=== PATIENT | female | born 1970 | race Caucasian/White ===

== ENCOUNTER 2023-03-05 11:42 | Outpatient (AMB) | payer MEDICAID, SELFPAY ==
--- NOTE | 2023-03-05 11:38 | MHC.OFFVIS ---
Intake Vital Signs 03/05/23 11:44 Height 5 ft 8.5 in Weight 183 lb BMI 27.4 Intake Visit Reasons: [employer]/[facility] Referral for AAA 4.0 cm Intake Note: [employer], went to [facility] w/ Abdominal issues and had a CT Abd/pelvis w/ a finding of a 4.0 cm AAA, no abdominal issues currently Accompanied by: Friend Allergies cat dander [CATS] Allergy (Severe, Unverified 03/05/23 11:45) SHORTNESS OF BREATH HPI [employer]/[facility] Referral for AAA 4.0 cm HPI Details Very pleasant 52-year-old female presents for evaluation regarding an abdominal aortic aneurysm. It was actually picked up as an incidental finding when she did present to [facility] on December 29. At that time she had some abdominal tenderness an had findings consistent with terminal ileitis. At that time she was discovered to have a 4 cm abdominal aortic aneurysm all infrarenal. This was the 1st time she heard of this. She was quite concerned about this and was unable to get in with other vascular surgeons and came to us. From a E medical history she has not seen a primary care and several years and actually does not have 1 at the current time. Is in the process of getting 1. She does have a history of hypertension but did not take medications for that and wanted to see her primary care 1st. In addition she did have a history of hypercholesterolemia and did take cholesterol pills for period of time but self stop that. Also of note she smokes about a pack a day and is a nondiabetic. [facility] Social History (Updated 03/05/23 @ 11:46 by JORI Montenegro) Patient Tobacco Use Status: Current everyday Tobacco user Cigarettes Per Day: 15 Review of Systems Const All systems reviewed & are unremarkable except as noted in HPI and below Reports no additional complaints ENT Reports Normal hearing present Card Denies chest pain, Denies chest pain at rest, Denies chest pain with activity and Denies pedal edema Resp Denies cough GI Denies abdominal pain Musc Denies abnormal gait, Denies muscle cramps and Denies radiating pain into limb Skin/Breast Denies skin ulcer and Denies wounds Neuro Reports Normal hearing present and Denies abnormal gait Psych Reports no additional complaints Physical Exam Vital Signs: BMI result Body Mass Index 27.4 Const General: cooperative, healthy appearing and comfortable Orientation/consciousness: oriented to person, oriented to place and oriented to time HEENT Head: Yes normal to inspection Neck Neck: Yes normal visual inspection Carotids: no bruits Chest Chest palpation & inspection: normal inspection of the chest Resp Effort & Inspection: normal respiratory effort and able to speak in complete sentences Auscultation: clear to auscultation bilaterally, no crackles, no rales, no rhonchi and no wheezes Cardio Rate: regular rate Rhythm: regular rhythm Heart sounds: S1 normal heart sound present and S2 normal heart sound present Bruits: no carotid bruits Peripheral pulses: Peripheral pulses 2+ throughout GI Inspection: Yes normal to inspection Skin Wounds: no wounds Hair: normal Neuro General: oriented to person, oriented to place and oriented to time Cranial nerves: Yes CN's II-XII intact bilaterally and Yes Normal hearing present Cognition (Neuro): normal cognition Motor exam (neuro): 5/5 motor strength present throughout Extrem Other: venous exam: No significant superficial varicosities or spider telangiectasias, minimal edema General: No clubbing, No cyanosis and No edema Psych Appearance: grossly normal Mental Status: mental status grossly normal Speech and movement: Normal speech and movement present Results Reviewed Results Reviewed: CT scan dated 12/29/2022 demonstrates a 4 cm infrarenal abdominal aortic aneurysm written report reviewed only. [facility] CT scan. Assessment & Plan Assessment & Plan (1) AAA (abdominal aortic aneurysm) without rupture: Code(s): I71.40 - Abdominal aortic aneurysm, without rupture, unspecified Plan: In short patient has radiologic evidence of a AAA on CT scan of 4 cm. We have discussed the pathophysiology of aortic aneurysms and the risk of ruptures. We have discussed rupture risk based on size. In addition we have discussed conservative measures and risk factor modification for prevention of increase in size of the aneurysm. the patient is scheduled for surveillance follow-up in approximately 6 months. In addition I did urge her to establish care with primary care physician and the importance of compliance with hypertensive in cholesterol medications peer Thank you for allowing us to participate in the care of this patient Orders: Orders US abdominal aortic aneurysm 6 Months I71.40 - Abdominal aortic aneurysm, without rupture, unspecified Coding Level of Care Code New Pt Level 4 (70092) Diagnoses AAA (abdominal aortic aneurysm) without rupture I71.40
[2023-03-05 11:44] VITALS: BMI 27.4
== END 2023-03-05 12:03 | disposition home or self-care (01) ==
PROVIDERS: Visit Provider Surgery Vascular Surgery
DX: I71.43 Infrarenal abdominal aortic aneurysm, without rupture (principal)
CPT/HCPCS: 99204

== ENCOUNTER → 2023-03-05 11:42 | Outpatient (BNVA) | payer OTHER, SELFPAY | PROVIDERS: Visit Provider Surgery Vascular Surgery | DX: I71.40 Abdominal aortic aneurysm, without rupture, unspecified (principal) | CPT/HCPCS: 99202 ==

== ENCOUNTER 2023-09-02 10:07 | Outpatient (REF) | payer OTHER, SELFPAY ==
--- NOTE | ~2023-09-02 | US_ITS ---
EXAMINATION: US RETROPERITONEAL LIMITED (AORTA) CLINICAL INFORMATION: Abdominal aortic aneurysm. COMPARISON: None available. TECHNIQUE: Thomas-scale, color Doppler and spectral Doppler evaluation of the abdominal aorta. FINDINGS: The aorta is normal. The measurements of the aorta in maximum AP and transverse dimensions respectively are as follows: Proximal: 3.1 x 2.8 cm. Mid: 2.5 x 2.5 cm. Infrarenal: 4.7 x 4.0cm Distal: 2.5 x 2.0 cm. PSV: 163 cm/s. The measurements of the common iliac arteries in maximum AP and TRV dimensions are as follows: Right Common Iliac Artery: 2.2 cm. Left Common Iliac Artery: 2.4 cm. US/US abdominal aortic aneurysm IMPRESSION: Infrarenal abdominal aortic aneurysm measuring 4.7 x 4.0 cm.
== END 2023-09-02 10:08 | disposition home or self-care (01) ==
LOC: HO.US 10:07
PROVIDERS: Visit Provider Surgery Vascular Surgery
DX: I71.40 Abdominal aortic aneurysm, without rupture, unspecified (principal)
CPT/HCPCS: 76706

== ENCOUNTER 2023-10-01 15:09 | Outpatient (AMB) | payer OTHER, SELFPAY ==
[2023-10-01 15:13] VITALS: BMI 27.8
--- NOTE | 2023-10-01 15:13 | MHC.OFFVIS ---
Intake Vital Signs 10/01/23 15:13 Height 5 ft 8 in Weight 183 lb BMI 27.8 Intake Visit Reasons: 6 mo follow up AAA s/p AAA US 09/02/2023 Information Interpreted: non-clinical & clinical Accompanied by: Significant Other Allergies cat dander [CATS] Allergy (Severe, Unverified 10/01/23 15:15) SHORTNESS OF BREATH HPI 6 mo follow up AAA s/p AAA US 09/02/2023 HPI Details Very pleasant 53-year-old female presents for follow-up regarding abdominal aortic aneurysm. She has had no significant interval changes. She has of yet to find a primary care. She continues to smoke about a pack per day. She reports that she does not have any diabetes. Overall medical status is unknown as she has not established primary care. [facility] Social History Patient Tobacco Use Status: Current everyday Tobacco user Cigarettes Per Day: 15 Review of Systems Const All systems reviewed & are unremarkable except as noted in HPI and below Reports no additional complaints ENT Reports Normal hearing present Card Denies chest pain, Denies chest pain at rest, Denies chest pain with activity and Denies pedal edema Resp Denies cough GI Denies abdominal pain Musc Denies abnormal gait, Denies muscle cramps and Denies radiating pain into limb Skin/Breast Denies skin ulcer and Denies wounds Neuro Reports Normal hearing present and Denies abnormal gait Psych Reports no additional complaints Physical Exam Vital Signs: BMI result Body Mass Index 27.8 Const General: cooperative, healthy appearing and comfortable Orientation/consciousness: oriented to person, oriented to place and oriented to time HEENT Head: Yes normal to inspection Neck Neck: Yes normal visual inspection Carotids: no bruits Chest Chest palpation & inspection: normal inspection of the chest Resp Effort & Inspection: normal respiratory effort and able to speak in complete sentences Auscultation: clear to auscultation bilaterally, no crackles, no rales, no rhonchi and no wheezes Cardio Rate: regular rate Rhythm: regular rhythm Heart sounds: S1 normal heart sound present and S2 normal heart sound present Bruits: no carotid bruits Peripheral pulses: Peripheral pulses 2+ throughout GI Inspection: Yes normal to inspection Skin Wounds: no wounds Hair: normal Neuro General: oriented to person, oriented to place and oriented to time Cranial nerves: Yes CN's II-XII intact bilaterally and Yes Normal hearing present Cognition (Neuro): normal cognition Motor exam (neuro): 5/5 motor strength present throughout Extrem Other: venous exam: No significant superficial varicosities or spider telangiectasias, minimal edema General: No clubbing, No cyanosis and No edema Psych Appearance: grossly normal Mental Status: mental status grossly normal Speech and movement: Normal speech and movement present Results Reviewed Results Reviewed: Noninvasive testing of aortic ultrasound dated 09/02/2023 demonstrates aorta measuring 4.7 cm. This is an increase when compared to her CT scan which was dated on 12/29/2022 which was at [facility] and reported at 4 cm. Assessment & Plan Assessment & Plan (1) AAA (abdominal aortic aneurysm) without rupture: Code(s): I71.40 - Abdominal aortic aneurysm, without rupture, unspecified Qualifiers: Abdominal aorta location: infrarenal aorta Qualified Code(s): I71.43 - Infrarenal abdominal aortic aneurysm, without rupture Plan: In short patient has radiologic evidence of a AAA on ultrasound which is an increase from her prior CT scan.. We have discussed the pathophysiology of aortic aneurysms and the risk of ruptures. We have discussed rupture risk based on size. In addition we have discussed conservative measures and risk factor modification for prevention of increase in size of the aneurysm. I have taken the liberty of ordering a CT angiogram to better elucidate the true size of the aorta. Thank you for allowing us to participate in the care of this patient Orders: Orders Blood Urea Nitrogen Today I71.43 - Infrarenal abdominal aortic aneurysm, without rupture Creatinine Today I71.43 - Infrarenal abdominal aortic aneurysm, without rupture CT angio abdomen pelvis 1 Week I71.43 - Infrarenal abdominal aortic aneurysm, without rupture Coding Level of Care Code Est Pt Level 4 (35008) Diagnoses Infrarenal abdominal aortic aneurysm (AAA) without rupture I71.43 Abdominal aorta location: infrarenal aorta
== END 2023-10-01 15:34 | disposition home or self-care (01) ==
PROVIDERS: Visit Provider Surgery Vascular Surgery
DX: I71.43 Infrarenal abdominal aortic aneurysm, without rupture (principal)
CPT/HCPCS: 99214

== ENCOUNTER → 2023-10-01 15:09 | Outpatient (BNVA) | payer OTHER, SELFPAY | PROVIDERS: Visit Provider Surgery Vascular Surgery ==

== ENCOUNTER 2023-10-29 11:01 | Outpatient (REF) | payer OTHER, SELFPAY ==
--- NOTE | ~2023-10-29 | CT_ITS ---
STUDY PERFORMED: CTA ABDOMEN AND PELVIS WITHOUT AND WITH CONTRAST HISTORY: Abdominal aortic aneurysm without rupture DESCRIPTION: Routine abdomen and pelvis CTA protocol with contrast was performed. 80 mL of Omnipaque 350 was administered. 3D POSTPROCESSING: Multiple 3-D angiographic images were processed from the initial data set by the [facility] under concurrent physician supervision. DOSE LOWERING TECHNIQUES: This CT examination was performed using dose optimization techniques as appropriate, variously including the following: - Automated exposure control - Adjustment of mA and/or kV according to patient size (this includes techniques or standardized protocols for targeted exams where dose is matched to indication/reason for exam; i.e. extremities or head) - Use of iterative reconstruction technique DLP: 488 mGycm. COMPARISON: Ultrasound from 09/02/2023 FINDINGS: VASCULAR: ABDOMINAL AORTA: There is a fusiform infrarenal abdominal aortic aneurysm which measures 3.9 x 3.5 cm on the axial images. There is a moderate to large amount of mural thrombus within the aneurysm sac. This previously measured 4.7 x 4.1 cm on ultrasound however this may be overestimated due to artifact and shadowing. RIGHT LOWER EXTREMITY: Common iliac, external iliac, internal iliac and visualized femoral arteries are patent and normal in caliber. Scattered calcified and noncalcified plaque seen without significant stenosis. LEFT LOWER EXTREMITY: Common iliac, external and internal iliac arteries are patent and normal in caliber. Scattered calcified and noncalcified plaque seen without significant stenosis. There is noncalcified plaque in the proximal superficial femoral artery causing a focal severe stenosis. CELIOMESENTERIC ARTERIES: Patent. RENAL ARTERIES: Patent. NONVASCULAR: Lung Bases: The visualized lung bases are unremarkable. Liver, Gallbladder and Biliary Tree: The liver is normal in size, shape, and attenuation. No focal hepatic lesion or biliary ductal dilatation is present. The gallbladder is unremarkable with no evidence of radiopaque gallstones, gallbladder wall thickening, or obvious pericholecystic inflammatory changes. Pancreas: Unremarkable. Spleen: Unremarkable. Adrenal Glands: Unremarkable. Kidneys and Ureters: The kidneys are normal in size, shape, and attenuation. No hydronephrosis, hydroureter, or calculi seen. No perinephric stranding. Bladder: Unremarkable. Gastrointestinal Tract: The small bowel are unremarkable. Extensive diverticula seen. The appendix is unremarkable. Abdominal Wall: No significant hernia is appreciated. Lymph Nodes: Normal. Pelvic Viscera: The uterus and adnexa are unremarkable. Osseous Structures: Degenerative changes in the pubic symphysis CT/CT angio abdomen pelvis IMPRESSION: 1. Fusiform infrarenal abdominal aortic aneurysm with a moderate to large amount of mural thrombus. Aneurysm measures maximum diameter 3.9 cm. 2. Focal severe stenosis in the proximal left superficial femoral artery. 3. Diverticulosis
[2023-10-29 12:40] LABS: Blood Urea Nitrogen 7 mg/dL (9-16); Estimated Glomerular Filt Rate > 60
[2023-10-29] MEDS: iohexoL 350 MG/ML 100 ML INFUS..BTL IV (14:02)
== END 2023-10-29 11:02 | disposition home or self-care (01) ==
LOC: HO.CT 11:01
PROVIDERS: Visit Provider Surgery Vascular Surgery
DX: I71.43 Infrarenal abdominal aortic aneurysm, without rupture (principal)
CPT/HCPCS: 36415; 74174; 82565; 84520; Q9967

== ENCOUNTER 2023-11-05 11:41 | Outpatient (AMB) | payer OTHER, SELFPAY ==
--- NOTE | 2023-11-05 11:43 | MHC.OFFVIS ---
Intake Visit Reasons: follow up CTA abd/pelvis 10/29/2023 Intake Note: Patient presents for follow up CTA abd/pelvis on 10/29/23. No complaints. Accompanied by: Self / Same As Patient Allergies cat dander [CATS] Allergy (Severe, Verified 11/05/23 11:45) SHORTNESS OF BREATH HPI HPI follow up CTA abd/pelvis 10/29/2023: Details: Very pleasant 53-year-old female presents for surveillance follow-up regarding abdominal aortic aneurysm. She had a CT scan nearly a year ago and on surveillance ultrasound follow-up there was a dramatic increase. To better elucidate the true size she underwent a CT angiogram. She has had no interval changes. Upon further discussion with her she reports that she has difficulty ambulating more than a block. She attributes that this is mostly due to her feet. She does complain of some left thigh and calf discomfort. She now presents for follow-u with CT angiogram [facility] Social History Patient Tobacco Use Status: Current everyday Tobacco user Cigarettes Per Day: 15 Review of Systems Const All systems reviewed & are unremarkable except as noted in HPI and below Reports no additional complaints ENT Reports Normal hearing present Card Denies chest pain, Denies chest pain at rest, Denies chest pain with activity and Denies pedal edema Resp Denies cough GI Denies abdominal pain Musc Denies abnormal gait, Denies muscle cramps and Denies radiating pain into limb Skin/Breast Denies skin ulcer and Denies wounds Neuro Reports Normal hearing present and Denies abnormal gait Psych Reports no additional complaints Physical Exam Const General: cooperative, healthy appearing and comfortable Orientation/consciousness: oriented to person, oriented to place and oriented to time HEENT Head: Yes normal to inspection Neck Neck: Yes normal visual inspection Carotids: no bruits Chest Chest palpation & inspection: normal inspection of the chest Resp Effort & Inspection: normal respiratory effort and able to speak in complete sentences Auscultation: clear to auscultation bilaterally, no crackles, no rales, no rhonchi and no wheezes Cardio Other: Bilateral DP signal Rate: regular rate Rhythm: regular rhythm Heart sounds: S1 normal heart sound present and S2 normal heart sound present Bruits: no carotid bruits GI Inspection: Yes normal to inspection Skin Wounds: no wounds Hair: normal Neuro General: oriented to person, oriented to place and oriented to time Cranial nerves: Yes CN's II-XII intact bilaterally and Yes Normal hearing present Cognition (Neuro): normal cognition Motor exam (neuro): 5/5 motor strength present throughout Extrem Other: venous exam: No significant superficial varicosities or spider telangiectasias, minimal edema General: No clubbing, No cyanosis and No edema Psych Appearance: grossly normal Mental Status: mental status grossly normal Speech and movement: Normal speech and movement present Results Reviewed Results Reviewed: CT angiogram dated 10/30/2023 demonstrates abdominal aortic aneurysm measuring 3.9 cm. In addition there was a high-grade stenosis in the left SFA. Assessment & Plan Assessment & Plan (1) AAA (abdominal aortic aneurysm) without rupture: Code(s): I71.40 - Abdominal aortic aneurysm, without rupture, unspecified Category: Medical Qualifiers: Abdominal aorta location: infrarenal aorta Qualified Code(s): I71.43 - Infrarenal abdominal aortic aneurysm, without rupture Plan: In short her abdominal aortic aneurysm is stable at 3.9 cm. The ultrasound reading was an over estimation. CT scan will be the true results. She will be scheduled for annual surveillance follow-up regarding this. We did discuss routine risk factor modification. Thank you for allowing us to assist in her care. (2) PAD (peripheral artery disease): Code(s): I73.9 - Peripheral vascular disease, unspecified Category: Medical Plan: CT scan did pickup an element of peripheral vascular disease. I did take the opportunity to review this with her. This may be multifactorial as she does have some podiatric issues as well. I did take the liberty of ordering noninvasive testing and the patient will follow up with us after testing. Thank you for allowing us to assist in her care. If there are any questions or concerns please do not hesitate to contact us Orders: Orders US abdominal aortic aneurysm 1 Year I71.43 - Infrarenal abdominal aortic aneurysm, without rupture US arterial duplex LE BI 1 Week I73.9 - Peripheral vascular disease, unspecified Coding Level of Care Code Est Pt Level 4 (59717) Diagnoses Infrarenal abdominal aortic aneurysm (AAA) without rupture I71.43 Abdominal aorta location: infrarenal aorta PAD (peripheral artery disease) I73.9
== END 2023-11-05 11:58 | disposition home or self-care (01) ==
PROVIDERS: Visit Provider Surgery Vascular Surgery
DX: I71.43 Infrarenal abdominal aortic aneurysm, without rupture (principal); I73.9 Peripheral vascular disease, unspecified
CPT/HCPCS: 99213

== ENCOUNTER → 2023-11-05 11:41 | Outpatient (BNVA) | payer OTHER, SELFPAY | PROVIDERS: Visit Provider Surgery Vascular Surgery ==

== ENCOUNTER 2023-12-03 15:00 | Outpatient (REF) | payer OTHER, SELFPAY ==
--- NOTE | ~2023-12-03 | US_ITS ---
EXAMINATION: NONINVASIVE ASSESSMENT OF THE ARTERIES OF BOTH LOWER EXTREMITIES INCLUDING PVR EXAM AND BILATERAL LOWER EXTREMITY DUPLEX CLINICAL INFORMATION: PVD COMPARISON: None TECHNIQUE: Ankle pulse volume recordings, ankle pressure measurements and ankle brachial indices were obtained of the lower extremity arterial system bilaterally in addition to duplex Doppler techniques with wave form analysis and measurement of velocities in the common femoral, profunda femoral, superficial femoral, popliteal, tibial and peroneal arteries. The study was performed only at rest. FINDINGS: RIGHT LEG 1. Right Ankle-Brachial Index: 0.99 (higher of the DP/PT) >0.97-1.25 = normal - no significant arterial disease 0.75-0.96 = mild peripheral arterial disease 0.5-0.74 = moderate peripheral arterial disease <0.50 = severe peripheral arterial disease <0.30 = critical arterial disease 2. Segmental Pressures (mmHg): Brachial: 195 Ankle: PT 199, DP 179 3. PVR Waveforms: Ankle: normal 4. Direct Duplex: Common femoral artery: 131.8 cm/s, Multiphasic Profunda femoris artery: 57.1 cm/s, Multiphasic Superficial femoral artery (proximal): 107.7 cm/s, Multiphasic Superficial femoral artery (mid): 107.6 cm/s, Multiphasic Superficial femoral artery (distal): 196.6 cm/s, Multiphasic Popliteal artery: 80.3 cm/s, Multiphasic Posterior tibial artery: 74.1 cm/s, Multiphasic LEFT LE. Left Ankle-Brachial Index: 0.68 (higher of the DP/PT) >0.97-1.25 = normal - no significant arterial disease 0.75-0.96 = mild peripheral arterial disease 0.5-0.74 = moderate peripheral arterial disease <0.50 = severe peripheral arterial disease <0.30 = critical arterial disease 2. Segmental Pressures: Brachial: 201 Ankle: PT 136, DP 132 3. PVR Waveforms: Ankle: biphasic 4. Direct Duplex: Common femoral artery: 112.3 cm/s, Multiphasic Profunda femoris artery: 64.9 cm/s, Multiphasic Superficial femoral artery (proximal): 231.8 cm/s, Monophasic Superficial femoral artery (mid): 65.5 cm/s, Multiphasic Superficial femoral artery (distal): 86.4 cm/s, Monophasic Popliteal artery: 39.7 cm/s, Monophasic Posterior tibial artery: 37.5 cm/s, Monophasic US/US arterial duplex LE BI IMPRESSION: 1. Right AMY 0.99. No evidence of hemodynamically significant stenosis. 2. Left AMY 0.68 consistent with moderate peripheral arterial disease. There is elevated peak systolic velocity at the proximal superficial femoral artery suggesting a stenosis at this level. There is monophasic flow in the popliteal and posterior tibial arteries.
== END 2023-12-03 15:01 | disposition home or self-care (01) ==
LOC: HO.US 15:00
PROVIDERS: Visit Provider Surgery Vascular Surgery
DX: I73.9 Peripheral vascular disease, unspecified (principal)
CPT/HCPCS: 93923; 93925

== ENCOUNTER 2024-01-02 10:26 | Outpatient (AMB) | payer OTHER, SELFPAY ==
[2024-01-02 10:35] VITALS: BMI 27.8
--- NOTE | 2024-01-02 10:35 | MHC.OFFVIS ---
Vital Signs 01/02/24 10:35 Height 5 ft 8 in Weight 183 lb BMI 27.8 Intake Visit Reasons: Follow up 12/02 arterial US Intake Note: follow up for arterial US 12/03/23 for LE pain Right worse than Left. States bilateral feet are painful. No numbness or cramping Accompanied by: Self / Same As Patient Allergies cat dander [CATS] Allergy (Severe, Verified 01/02/24 10:39) SHORTNESS OF BREATH HPI HPI Follow up 12/02 arterial US: Details: Very pleasant 53-year-old female presents for follow-up regarding peripheral vascular disease. She had undergone CT scan for her aortic aneurysm and at that time was noted to have left SFA occlusion. She reports that she has no difficulty ambulating and that the majority of her issues are with her feet. She did have a right thigh muscle strain. She now presents for follow-up with noninvasive arterial testing. FORMERLY [facility] Social History Patient Tobacco Use Status: Current everyday Tobacco user Cigarettes Per Day: 15 Review of Systems Const All systems reviewed & are unremarkable except as noted in HPI and below Reports no additional complaints ENT Reports Normal hearing present Card Denies chest pain, Denies chest pain at rest, Denies chest pain with activity and Denies pedal edema Resp Denies cough GI Denies abdominal pain Musc Denies abnormal gait, Denies muscle cramps and Denies radiating pain into limb Skin/Breast Denies skin ulcer and Denies wounds Neuro Reports Normal hearing present and Denies abnormal gait Psych Reports no additional complaints Physical Exam Vital Signs: BMI result Body Mass Index 27.8 Const General: cooperative, healthy appearing and comfortable Orientation/consciousness: oriented to person, oriented to place and oriented to time HEENT Head: Yes normal to inspection Neck Neck: Yes normal visual inspection Carotids: no bruits Chest Chest palpation & inspection: normal inspection of the chest Resp Effort & Inspection: normal respiratory effort and able to speak in complete sentences Auscultation: clear to auscultation bilaterally, no crackles, no rales, no rhonchi and no wheezes Cardio Other: Bilateral DP signal Rate: regular rate Rhythm: regular rhythm Heart sounds: S1 normal heart sound present and S2 normal heart sound present Bruits: no carotid bruits Peripheral pulses: Peripheral pulses 2+ throughout GI Inspection: Yes normal to inspection Skin Wounds: no wounds Hair: normal Neuro General: oriented to person, oriented to place and oriented to time Cranial nerves: Yes CN's II-XII intact bilaterally and Yes Normal hearing present Cognition (Neuro): normal cognition Motor exam (neuro): 5/5 motor strength present throughout Extrem Other: venous exam: No significant superficial varicosities or spider telangiectasias, minimal edema General: No clubbing, No cyanosis and No edema Psych Appearance: grossly normal Mental Status: mental status grossly normal Speech and movement: Normal speech and movement present Results Reviewed Results Reviewed: Noninvasive arterial testing dated 12/03/2023 demonstrates AMY on the right of 0.99 and on the left of 0.68. Aortic CT on 10/30/2023 measures aneurysm measuring 3.9 cm Assessment & Plan Assessment & Plan (1) AAA (abdominal aortic aneurysm) without rupture: Code(s): I71.40 - Abdominal aortic aneurysm, without rupture, unspecified Category: Medical Plan: In short patient has radiologic evidence of a AAA on 3.[address] scan. We have discussed the pathophysiology of aortic aneurysms and the risk of ruptures. We have discussed rupture risk based on size. In addition we have discussed conservative measures and risk factor modification for prevention of increase in size of the aneurysm. the patient is scheduled for surveillance follow-up in approximately 1 year. Thank you for allowing us to participate in the care of this patient (2) PAD (peripheral artery disease): Code(s): I73.9 - Peripheral vascular disease, unspecified Category: Medical Plan: In short patient has stable claudication. She does not appear to be symptomatic from this. I did review the pathophysiology of peripheral vascular disease with the patient. In addition we did discuss routine conservative measures including a healthy diet and the importance of exercise and ambulation. We did discuss risk factor modification. The patient will continue to to follow-up with surveillance follow-up in approximately 1 year. Thank you for allowing us to participate in this patient's care. If there are any questions or concerns please do not hesitate to contact us. In addition I did request that she start a daily baby aspirin. She is scheduled for evaluation by a new primary care next month. I did discuss the importance of good medical management as she does have peripheral vascular issues and may even benefit from a statin. Once again she will follow up with us in approximately 1 year's time. Orders: Orders US arterial duplex LE BI 10 Months I73.9 - Peripheral vascular disease, unspecified Coding Level of Care Code Est Pt Level 4 (44378) Diagnoses AAA (abdominal aortic aneurysm) without rupture I71.40 PAD (peripheral artery disease) I73.9
== END 2024-01-02 11:50 | disposition home or self-care (01) ==
PROVIDERS: Visit Provider Surgery Vascular Surgery
DX: I71.40 Abdominal aortic aneurysm, without rupture, unspecified (principal); I73.9 Peripheral vascular disease, unspecified
CPT/HCPCS: 99213

== ENCOUNTER → 2024-01-02 10:26 | Outpatient (BNVA) | payer OTHER, SELFPAY | PROVIDERS: Visit Provider Surgery Vascular Surgery | DX: I71.40 Abdominal aortic aneurysm, without rupture, unspecified (principal); I73.9 Peripheral vascular disease, unspecified | CPT/HCPCS: 99212 ==

== ENCOUNTER 2024-02-04 12:32 | Outpatient (AMB) | payer OTHER, SELFPAY ==
--- NOTE | 2024-02-04 12:37 | MHC.PC.OV ---
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 Will order labs. Pt has never had a colon screen, will refer to GI. Due for mammo, will order. Pt does not have a library clerical assistant, will refer. Pt has been smoking a pack per day since age 19. Will refer for low-dose CTs. Pt is following up with vascular due to AAA. Pt's blood pressure is elevated today. She reports that it has been elevated in the past as well. Will start losartan-hydrochlorothiazide 50-12.5mg. Will have pt monitor her blood pressure at home and drop off readings. Denies chest pain, shortness of breath, headache, dizziness, and blurred vision. Pt c/o bilat foot pain. She reports pain and neuropathy to the plantar aspect of her feet, mostly to her heels. She reports dermatitis to her feet as well. Will order XRs and send betamethasone. Consider podiatry referral in the near future [facility] Surgical History Hx of left knee surgery Social History Housing: House Patient Tobacco Use Status: Current everyday Tobacco user Cigarettes Per Day: 15 Cognitive needs: No Hearing needs: No Vision needs: Yes Questionnaire PHQ-9 Over the last 2 weeks, how often have you been bothered by any of the following problems? 1. Little interest or pleasure in doing things: not at all 2. Feeling down, depressed, or hopeless: not at all 3. Trouble falling or staying asleep, or sleeping too much: not at all 4. Feeling tired or having little energy: not at all 5. Poor appetite or overeating: not at all 6. Feeling bad about yourself - or that you are a failure or have let yourself or your family down: not at all 7. Trouble concentrating on things, such as reading the newspaper or watching television: not at all 8. Moving or speaking so slowly that other people could have noticed. Or the opposite - being so fidgety or restless that you have been moving around a lot more than usual: not at all 9. Thoughts that you would be better off or of hurting yourself in some way: not at all Total score: 0 Depression Screening Interpretation: Negative Depression Screening Done: Yes 91236 - PHQ-9 Billing: Yes Source: Developed by Drs. Ap Mayo, Linda Mantilla, David Melton and colleagues, with an educational nora from [employer]. Thrive Questionnaire Date Thrive assessed: 02/04/24 I am a: Patient What is your living situation today?: I have a steady place to live Within the past 12 months, did the food you bought not last and you didn't have the money to get more?: Never true Within the past 12 months, did you worry whether your food would run out before you got money to buy more?: Never true Do you have trouble paying for medicines?: No Do you have trouble getting transportation to medical appointments?: No Do you have trouble paying your heating and electricity bill?: No Do you have trouble taking care of your child, family member or friend?: No Do you have trouble with day-to-day activities such as bathing, preparing meals, shopping, managing finances, etc.?: No Are you currently unemployed and looking for a job?: No Are you interested in more education?: No Please select the resources that you would like help with: Housing/Prison Currently or been in a relationship where the following occur: No concerns reported THRIVE Score: 0 AUDIT C Alcohol Use Questionnaire (AUDIT-C) 1. How often do you have a drink containing alcohol?: 2-3 times a week 2. How many drinks containing alcohol do you have on a typical day when you are drinking?: 3 or 4 3. How often do you have six or more drinks on one occasion?: Less than monthly Total Score: 5 Score Reviewed/Action Taken: Yes CASIMIRO-7 AMB Questionnaire CASIMIRO-7 Date CASIMIRO - 7 assessed: 02/04/24 Feeling nervous, anxious, or on edge: 0 = Not at all Not being able to stop or control worryin = Not at all Worrying too much about different things: 0 = Not at all Trouble relaxin = Not at all Being so restless that it is hard to sit still: 0 = Not at all Becoming easily annoyed or irritable: 0 = Not at all Feeling afraid as if something awful might happen: 0 = Not at all Total CASIMIRO-7 score (0-4 normal; 5-9 mild; 10-14 moderate; 15-21 severe): 0 Source: Developed by Drs. Ap Mayo, Linda Mantilla, David Melton and colleagues, with an educational nora from [employer]. CASIMIRO-7 Assessment Billing CASIMIRO-7 Assessment Tool: CASIMIRO-7 Assessment 22476 Review of Systems Const Denies chills and Denies fever(s) Eyes Denies blurry vision ENT Denies vertigo, Denies dizziness and Denies sore throat Card Denies chest pain at rest, Denies chest pain with activity, Denies diaphoresis, Denies dyspnea and Denies dyspnea on exertion Resp Denies cough, Denies dyspnea, Denies dyspnea on exertion and Denies wheezing GI Denies abdominal pain, Denies melena, Denies hematochezia, Denies constipation, Denies diarrhea and Denies loose stools Denies hematuria Musc Denies numbness and Denies tingling Skin/Breast Denies lesions Neuro Denies vertigo, Denies dizziness, Denies numbness and Denies tingling Psych Denies anxiety, Denies depression, Denies homicidal ideation, Denies suicidal ideation and Denies other (substance abuse) Aller/Immun Denies wheezing Physical exam (Primary Care) Vital Signs: Last Vital Signs Pulse 69 02/04/24 12:39 BP 170/110 H 02/04/24 12:39 Pulse Ox 95 02/04/24 12:39 Oxygen Delivery Method Room Air 02/04/24 12:39 BMI result Body Mass Index 27.8 Tobacco/Smoking Status: Tobacco use Status Tobacco use date assessed 02/04/24 02/04/24 12:44 Patient Tobacco Use Status Current everyday Tobacco 02/04/24 12:39 PHQ-9: PHQ-9 Score PHQ-9: Total score 0 02/04/24 12:48 Depression Screening Interpretation: Negative Thrive Assessment: Date of Thrive Assessment Date Thrive assessed 02/04/24 02/04/24 12:44 Currently or been in a relationship where the following occur: No concerns reported Const General: cooperative Nutritional Appearance: well nourished Orientation/consciousness: patient oriented x3 HENMT Head: Yes normal to inspection, Yes normocephalic and Yes atraumatic Ears: TM's normal bilaterally Eyes General: appearance normal, both eyes and all related structures Alignment and Position: alignment normal and position normal Neck Neck: Yes normal visual inspection and Yes no lymphadenopathy Thyroid: Thyroid normal Resp Effort & Inspection: normal respiratory effort Auscultation: clear to auscultation bilaterally Cardio Other: very faint systolic murmur Rate: regular rate Rhythm: regular rhythm Heart sounds: S1 normal heart sound present and S2 normal heart sound present GI Palpation (GI): Soft to palpation and nontender Auscultation: normal bowel sounds Skin Rashes: no rashes Neuro General: patient oriented x3 Romberg Test: Negative Extrem Other: plantar aspect of bilat feet with macular dry flaky dermatitis, no foot pain with palpation, pain noted to plantar aspect of bilat feet with weight bearing Psych Appearance: grossly normal Mental Status: mental status grossly normal Speech and movement: Normal speech and movement present Affect: normal affect Attitude: cooperative Thought process: Normal thought process present Thought content: Normal thought content present Insight: Good insight present (Psych) Judgement: Good judgement present (Psych) Assessment and Plan Assessment & Plan (1) Smoker: Code(s): F17.200 - Nicotine dependence, unspecified, uncomplicated Plan: Referred for low-dose CT (2) Encounter for routine adult physical exam with abnormal findings: Code(s): Z00.01 - Encounter for general adult medical examination with abnormal findings Plan: Labs ordered (3) Screening for colon cancer: Code(s): Z12.11 - Encounter for screening for malignant neoplasm of colon Plan: Referred to GI (4) Screening for cervical cancer: Code(s): Z12.4 - Encounter for screening for malignant neoplasm of cervix Plan: Referred to library clerical assistant (5) Vitamin D deficiency: Code(s): E55.9 - Vitamin D deficiency, unspecified Plan: Labs ordered (6) Foot pain, bilateral: Code(s): M79.671 - Pain in right foot; M79.672 - Pain in left foot Plan: XRs (7) Systolic murmur: Code(s): R01.1 - Cardiac murmur, unspecified Plan: echo (8) Heart palpitations: Code(s): R00.2 - Palpitations Plan: ekg Plan The patient agreed to the use of a medical assistant instructor for this encounter. Scribed for EMMA Chau- by Eli Ballesteros medical assistant instructor, on 02/04/2024 at 12:45 EST. Orders: Orders Complete Blood Count Auto Diff Today F17.200 - Nicotine dependence, unspecified, uncomplicated, Z00.01 - Encounter for general adult medical examination with abnormal findings TSH reflex Free T4 Today F17.200 - Nicotine dependence, unspecified, uncomplicated, Z00.01 - Encounter for general adult medical examination with abnormal findings UA CC w/rflx Micro + Cult Today F17.200 - Nicotine dependence, unspecified, uncomplicated, Z00.01 - Encounter for general adult medical examination with abnormal findings CA echo transthoracic complete Today R01.1 - Cardiac murmur, unspecified Comprehensive Krebs. Panel Fast Today F17.200 - Nicotine dependence, unspecified, uncomplicated, Z00.01 - Encounter for general adult medical examination with abnormal findings Lipid Panel Today F17.200 - Nicotine dependence, unspecified, uncomplicated, Z00.01 - Encounter for general adult medical examination with abnormal findings MM screening mammo BI Today Z12.31 - Encounter for screening mammogram for malignant neoplasm of breast Vitamin D 25-OH Total Today E55.9 - Vitamin D deficiency, unspecified XR foot LT 2V Today M79.671 - Pain in right foot, M79.672 - Pain in left foot XR foot RT 2V Today M79.671 - Pain in right foot, M79.672 - Pain in left foot AMB EKG-In Office Today R00.2 - Palpitations Referrals Lung Cancer Screening Referral F17.200 - Nicotine dependence, unspecified, uncomplicated Gastroenterology Referral Z12.11 - Encounter for screening for malignant neoplasm of colon CAREER BASED INTERVENTION COORDINATOR Referral Z12.4 - Encounter for screening for malignant neoplasm of cervix Medications: New losartan-hydrochlorothiazide 50-12.5 mg 1 tab PO DAILY 90 days 90 tabs 1RF betamethasone valerate 0.1% 1 appl topical BID 14 days PRN 45 grams 3RF skin irritation Coding Level of Care Code New Pt Prev Care 40-64y(27849) Diagnoses Smoker F17.200 Encounter for routine adult physical exam with abnormal findings Z00.01 Screening for colon cancer Z12.11 Screening for cervical cancer Z12.4 Vitamin D deficiency E55.9 Foot pain, bilateral M79.671; M79.672 Systolic murmur R01.1 Heart palpitations R00.2 Additional Codes CASIMIRO-7 Assessment Billing - CASIMIRO-7 Assessment Tool: CASIMIRO-7 Assessment 07054 ([id number])
[2024-02-04 12:39] VITALS: BP 170/110; PULSE 69; O2SAT 95; BMI 27.8
[2024-02-04 13:29] VITALS: BP 150/100
== END 2024-02-04 13:53 | disposition home or self-care (01) ==
PROVIDERS: PCP Nurse Practitioner Family; Visit Provider Nurse Practitioner Family
DX: Z00.01 Encounter for general adult medical examination with abnormal findings (principal); F17.210 Nicotine dependence, cigarettes, uncomplicated; Z12.11 Encounter for screening for malignant neoplasm of colon; E55.9 Vitamin D deficiency, unspecified; M79.671 Pain in right foot; M79.672 Pain in left foot; R01.1 Cardiac murmur, unspecified; R00.2 Palpitations
CPT/HCPCS: 93000; 99203; 99386

== ENCOUNTER 2024-02-04 13:55 | Outpatient (REF) | payer OTHER, SELFPAY ==
--- NOTE | ~2024-02-04 | XR_ITS ---
EXAMINATION: Bilateral foot series CLINICAL INFORMATION: Pain in the right foot COMPARISON: None. TECHNIQUE: 3 views of each foot FINDINGS: Right foot: The bones joints and soft tissues are normal. No fracture. No degenerative joint disease. Left foot: Bones joints and soft tissues are normal. No fracture or degenerative joint disease. XR/XR foot LT min 3V IMPRESSION: RIGHT FOOT: Normal. LEFT FOOT: Normal.
--- NOTE | ~2024-02-04 | XR_ITS ---
EXAMINATION: Bilateral foot series CLINICAL INFORMATION: Pain in the right foot COMPARISON: None. TECHNIQUE: 3 views of each foot FINDINGS: Right foot: The bones joints and soft tissues are normal. No fracture. No degenerative joint disease. Left foot: Bones joints and soft tissues are normal. No fracture or degenerative joint disease. XR/XR foot RT min 3V IMPRESSION: RIGHT FOOT: Normal. LEFT FOOT: Normal.
== END 2024-02-04 13:56 | disposition home or self-care (01) ==
LOC: HO.HMGCX 13:55
PROVIDERS: PCP Nurse Practitioner Family; Visit Provider Nurse Practitioner Family
DX: M79.671 Pain in right foot (principal); M79.672 Pain in left foot
CPT/HCPCS: 73630

== ENCOUNTER 2024-06-03 14:43 | Outpatient (REF) | payer OTHER, SELFPAY ==
[2024-06-03 16:15] LABS: MANUAL DIFF FLAG NO
[2024-06-03 16:22] LABS: Basophils Absolute Auto 0.1 X10*3/uL (0.0-0.2); Basophils Percent Auto 0.8 % (0-2); Eosinophils Absolute Auto 0.4 X10*3/uL (0.0-0.4); Eosinophils Percent Auto 2.5 % (0-4); Hematocrit 46.2 % (37.0-47.0); Imm Gran Abs Auto 0.08 X10*3/uL (0.00-0.03); Imm Gran Pct Auto 0.5 % (0.0-0.4); Lymphocytes Absolute Auto 3.3 X10*3/uL (1.2-4.9); Lymphocytes Percent Auto 21.2 % (20-40); Mean Corpuscular HGB Conc 34.6 g/dl (31.0-35.0); Mean Corpuscular Hemoglobin 38.4 pg (27.0-33.0); Mean Platelet Volume 9.5 fL (9.4-12.3); Monocytes Percent Auto 6.2 % (2-11); Neutrophils Absolute Auto 10.6 x10*3/uL (2.0-8.3); Neutrophils Percent Auto 68.8 % (45-73); Platelet Count 342 X10*3/uL (160-400); Red Blood Count 4.17 X10*6/uL (4.20-5.50); Red Cell Distribution Width 15.6 % (11.0-16.0); White Blood Count 15.4 X10*3/uL (4.8-10.8)
[2024-06-03 16:32] LABS: Mean Corpuscular Volume 110.8 fL (80.0-98.0)
[2024-06-03 16:44] LABS: Alanine Aminotransferase 24 U/L (0-31); Albumin Level 3.9 g/dL (3.5-5.0); Alkaline Phosphatase 65 U/L (39-117); Anion Gap 14 (12-20); Aspartate Amino Transferase 21 U/L (5-31); Blood Urea Nitrogen 8 mg/dL (9-16); Calcium 9.8 mg/dL (8.4-10.2); Carbon Dioxide 33 mmol/L (22-29); Chloride 95 mmol/L (96-108); Cholesterol 243 mg/dL (<200); Estimated Glomerular Filt Rate > 60; Glucose Fasting 108 mg/dL (60-99); HDL Cholesterol 24 mg/dL (>40); LDL Cholesterol Calculated 178 mg/dL (<100); Potassium 3.9 mmol/L (3.3-5.1); Sodium 138 mmol/L (135-145); Total Protein 7.3 g/dL (6.5-8.0); Triglycerides 207 mg/dL (<150)
[2024-06-03 17:01] LABS: TSH reflex Free T4 1.13 uIU/mL (0.32-4.0); Vitamin D 25-OH Total 11.6 ng/mL (>30)
== END 2024-06-03 14:44 | disposition home or self-care (01) ==
LOC: HO.HMGCLDS 14:43
PROVIDERS: PCP Nurse Practitioner Family; Visit Provider Nurse Practitioner Family
DX: I73.9 Peripheral vascular disease, unspecified (principal); G62.9 Polyneuropathy, unspecified; Z00.01 Encounter for general adult medical examination with abnormal findings; F17.200 Nicotine dependence, unspecified, uncomplicated; E55.9 Vitamin D deficiency, unspecified
CPT/HCPCS: 36415; 80053; 80061; 82306; 84443; 85025; 96127; 99212

== ENCOUNTER 2024-06-03 15:03 | Outpatient (AMB) | payer OTHER, SELFPAY ==
[2024-06-03 15:09] VITALS: BP 130/88; PULSE 91; O2SAT 97; BMI 27.8
--- NOTE | 2024-06-03 15:09 | A.OFFPC_ITS ---
Vital Signs 06/03/24 15:09 Height 5 ft 8 in Weight 183 lb BMI 27.8 BP 130/88 Blood Pressure Location Rt brachial Position Sitting Pulse 91 Pulse Source Pulse Oximeter Pulse Oximetry (%) 97 Oxygen Delivery Method Room Air Intake Visit Reasons: 3-4 month follow up Allergies cat dander [CATS] Allergy (Severe, Verified 06/03/24 15:13) SHORTNESS OF BREATH Medication List - Last Reconciled 06/03/24 by EMMA Carr- atorvastatin 20 mg PO BEDTIME 90 days betamethasone valerate 0.1% 1 appl topical BID PRN 14 days gabapentin 100 mg PO TID 30 days losartan-hydrochlorothiazide 50-12.5 mg 1 tab PO DAILY 90 days omeprazole 10 mg PO DAILY Tobacco use date assessed: 06/03/24 Dental Screening Dental Screen Date: 06/03/24 Did you have a dental visit in the last 12 months?: No Did you have a dental problem in the last 6 months where you did not have access to dental care?: No Was dental information given to patient?: Patient has dentist HPI 3-4 month follow up HPI Details History of Present Illness The patient is a 53-year-old female presenting with ongoing lower extremity pain, predominantly affecting her feet. She recently consulted with a vascular specialist who conducted extensive ultrasound testing, including arterial studies. Findings indicated the presence of peripheral arterial disease (PAD), particularly affecting the left lower extremity. The patient reports experiencing neuropathy in both feet and slight claudication on her left lower extremity. The latter is characterized by pain that occurs with ambulatory activity and improves with rest. She has noted that her left foot's toes have become dusky blue in color, indicating compromised circulation, with delayed capillary refill particularly obvious in the first four toes of the left foot. The progression of these symptoms suggests worsening peripheral circulation, contributing to her vascular complaints. Social History Review of Systems - Cardiovascular: Reports claudication i n the left lower extremity. - Neurological: Reports neuropathy in bi lateral feet. Physical Exam - Cardiac- S1, S2 present; faint systoli c murmur appreciated. - Respiratory- Lungs clear and diminishe d. - Extremities- Left foot toes appear dus ky blue, with delayed capillary refill in left first four toes. Difficult to palpate dorsalis pedis pulse on the left; foot is cool to touch. Right foot has positive dorsalis pedis pulse, capillary refill is present, and the area is warm to touch. Positive monofilament test bilaterally though diminished. Results Plan - Peripheral Arterial Disease PAD): Star t low dose aspirin and atorvastatin to manage vascular risk factors. I have ordered a repeat arterial ultrasound for both lower extremities to monitor the progression and response to treatment. - Neuropathy: Initiate gabapentin therap y at a low dose with plans to titrate based on tolerance and symptom relief. - Claudication: Advise the patient on ri sk factor modifications, including smoking cessation and exercise, although specific plans for these were not discussed. - Follow-up: Patient to follow up with shanelle carranza vascular specialist for continuing care and monitoring. Patient was informed and verbally consented to the use of an ambient scribe for clinic note documentation during this visit. Discussion Notes During the visit, I discussed the clinical findings suggestive of peripheral arterial disease primarily affecting the left lower extremity. I explained the nature of neuropathy and the symptoms of claudication, emphasizing the importance of medical management to reduce vascular risks. I advised starting aspirin and atorvastatin for cardiovascular protection, with gabapentin as a therapeutic option for neuropathy. I also informed the patient about further vascular testing (ordered through vascular), specifically an arterial ultrasound to evaluate the status of her peripheral circulation. She will follow up with the vascular specialist to elaborate on these findings and receive ongoing care. Patient Instructions - Start low dose aspirin as prescribed. - Start atorvastatin as discussed. - Begin gabapentin therapy and monitor f or tolerance. - Report any changes in symptoms, especi ally increased pain, color changes in the feet, or new symptoms. - Continue follow-up with vascular speckanu patel for further evaluation and radha clarke [facility] Medical History PAD (peripheral artery disease) AAA (abdominal aortic aneurysm) without rupture Hypertension Hyperlipidemia GERD (gastroesophageal reflux disease) Nicotine dependence, cigarettes, uncomplicated Vitamin D deficiency Surgical History History of repair of anterior cruciate ligament of left knee Social History Housing: House Patient Tobacco Use Status: Current everyday Tobacco user Cigarettes Per Day: 15 Cognitive needs: No Hearing needs: No Vision needs: Yes Questionnaire PHQ-9 Over the last 2 weeks, how often have you been bothered by any of the following problems? 1. Little interest or pleasure in doing things: nearly every day 2. Feeling down, depressed, or hopeless: not at all 3. Trouble falling or staying asleep, or sleeping too much: several days 4. Feeling tired or having little energy: nearly every day 5. Poor appetite or overeating: not at all 6. Feeling bad about yourself - or that you are a failure or have let yourself or your family down: not at all 7. Trouble concentrating on things, such as reading the newspaper or watching television: not at all 8. Moving or speaking so slowly that other people could have noticed. Or the opposite - being so fidgety or restless that you have been moving around a lot more than usual: not at all 9. Thoughts that you would be better off or of hurting yourself in some way: not at all Total score: 7 Depression Screening Interpretation: Negative Depression Screening Done: Yes 19322 - PHQ-9 Billing: Yes Source: Developed by Drs. Ap Mayo, Linda Mantilla, David Melton and colleagues, with an educational nora from [employer]. Thrive Questionnaire Date Thrive assessed: 06/03/24 I am a: Patient What is your living situation today?: I have a steady place to live Within the past 12 months, did the food you bought not last and you didn't have the money to get more?: Never true Within the past 12 months, did you worry whether your food would run out before you got money to buy more?: Never true Do you have trouble paying for medicines?: No Do you have trouble getting transportation to medical appointments?: No Do you have trouble paying your heating and electricity bill?: No Do you have trouble taking care of your child, family member or friend?: No Do you have trouble with day-to-day activities such as bathing, preparing meals, shopping, managing finances, etc.?: No Are you currently unemployed and looking for a job?: No Are you interested in more education?: No Please select the resources that you would like help with: None Currently or been in a relationship where the following occur: No concerns reported THRIVE Score: 0 AUDIT C Alcohol Use Questionnaire (AUDIT-C) 1. How often do you have a drink containing alcohol?: 2-3 times a week 2. How many drinks containing alcohol do you have on a typical day when you are drinking?: 3 or 4 3. How often do you have six or more drinks on one occasion?: Less than monthly Total Score: 5 Score Reviewed/Action Taken: Yes CASIMIRO-7 AMB Questionnaire CASIMIRO-7 Date CASIMIRO - 7 assessed: 06/03/24 Feeling nervous, anxious, or on edge: 0 = Not at all Not being able to stop or control worryin = Not at all Worrying too much about different things: 1 = Several days Trouble relaxin = Several days Being so restless that it is hard to sit still: 0 = Not at all Becoming easily annoyed or irritable: 1 = Several days Feeling afraid as if something awful might happen: 0 = Not at all Total CASIMIRO-7 score (0-4 normal; 5-9 mild; 10-14 moderate; 15-21 severe): 3 Source: Developed by Drs. Ap Mayo, Linda Mantilla, David Melton and colleagues, with an educational nora from [employer]. Physical exam (Primary Care) Vital Signs: Last Vital Signs Pulse 91 06/03/24 15:09 BP 130/88 06/03/24 15:09 Pulse Ox 97 06/03/24 15:09 Oxygen Delivery Method Room Air 06/03/24 15:09 BMI result Body Mass Index 27.8 Tobacco/Smoking Status: Tobacco use Status Tobacco use date assessed 06/03/24 06/03/24 15:17 Patient Tobacco Use Status Current everyday Tobacco 06/03/24 15:17 PHQ-9: PHQ-9 Score PHQ-9: Total score 7 06/03/24 15:17 Depression Screening Interpretation: Negative Thrive Assessment: Date of Thrive Assessment Date Thrive assessed 06/03/24 06/03/24 15:17 Currently or been in a relationship where the following occur: No concerns reported Coding Level of Care Code Est Pt Level 3 (65982) Diagnoses PAD (peripheral artery disease) I73.9 Neuropathy G62.9 Additional Codes PHQ-9 - 89278 - PHQ-9 Billing: Yes ([id number]) Assessment & Plan Assessment & Plan (1) PAD (peripheral artery disease): Code(s): I73.9 - Peripheral vascular disease, unspecified Category: Medical (2) Neuropathy: Code(s): G62.9 - Polyneuropathy, unspecified Category: Medical Plan . Medications: New gabapentin 100 mg PO TID 30 days 90 caps 2RF atorvastatin 20 mg PO BEDTIME 90 days 90 tabs 0RF aspirin (Adult Aspirin Regimen) 81 mg PO DAILY 90 tabs 4RF
== END 2024-06-03 16:11 | disposition home or self-care (01) ==
PROVIDERS: PCP Nurse Practitioner Family; Visit Provider Nurse Practitioner Family
DX: I73.9 Peripheral vascular disease, unspecified (principal); G62.9 Polyneuropathy, unspecified

== ENCOUNTER 2024-06-06 11:50 | Outpatient (REF) | payer OTHER, SELFPAY ==
[2024-06-06 15:15] LABS: Appearance Urine Cloudy; Color Urine Dark Yellow; Glucose Urine UA Negative (Negative); Leukocyte Esterase Urine Small (1+) (Negative); Nitrite Urine Positive (Negative); PH 5.5 (5.0-9.0); UMIC TRIGGER UACC YES; Urine Blood Negative (Negative); Urine Ketones Trace mg/dL (Negative); Urine Protein Negative (Neg-Trace)
[2024-06-06 15:23] LABS: Bacteria Urine 2+ (None Seen); RBC Urine 0-2 /HPF (0-2); UACC Culture Trigger YES; WBC Urine 21-50 /HPF (0-5)
== END 2024-06-06 11:51 | disposition home or self-care (01) ==
LOC: HO.HMGCLNP 11:50
PROVIDERS: Visit Provider Nurse Practitioner Family
DX: Z00.01 Encounter for general adult medical examination with abnormal findings (principal); F17.200 Nicotine dependence, unspecified, uncomplicated
CPT/HCPCS: 81001; 87086

== ENCOUNTER 2024-09-08 13:21 | Outpatient (AMB) | payer OTHER, SELFPAY ==
--- NOTE | 2024-09-08 07:47 | MHC.OFFVIS ---
Intake Visit Reasons: 3 month follow up Allergies cat dander [CATS] Allergy (Severe, Verified 09/08/24 07:49) SHORTNESS OF BREATH Medication List - Last Reconciled 09/08/24 by EMMA Carr- aspirin (Adult Aspirin Regimen) 81 mg PO DAILY atorvastatin 20 mg PO BEDTIME betamethasone valerate 0.1% 1 appl topical BID PRN 14 days cefuroxime axetil 250 mg PO BID 7 days cholecalciferol (vitamin D3) 50 mcg PO DAILY 90 days gabapentin 200 mg (2 x 100 mg) PO TID 30 days losartan-hydrochlorothiazide 50-12.5 mg 1 tab PO DAILY 90 days omeprazole 10 mg PO DAILY HPI HPI 3 month follow up: Details: History of Present Illness The patient is a 54-year-old female presenting with persistent peripheral neuropathy and associated vascular disease. She reports chronic neuropathic symptoms affecting her feet, prompting consideration of an increased dosage of gabapentin. Her medical history includes managed vascular disease with regular consultations and diagnostic monitoring, including planned ultrasounds to assess arterial status in her lower limbs and rule out abdominal aortic aneurysm. Heavy smoking is a significant part of her social history, likely exacerbating her vascular condition. Financial and occupational stress has limited her adherence to preventive health measures such as mammography and lung cancer screening with CT. Despite these challenges, she reports no chest pain, shortness of breath, abdominal discomfort, or stool changes. Her reluctance to complete recommended screenings underscores the need to address these barriers. Review of Systems - Cardiovascular: Denies chest pain. - Respiratory: Denies increased shortness of breath. - Gastrointestinal: Denies abdominal pain. - Gastrointestinal: Denies changes in stool consistency. Plan I will increase the gabapentin dosage to 200 mg three times daily to potentially improve management of her peripheral neuropathy symptoms. Her ongoing heavy tobacco use remains a concern, and I discussed smoking cessation as an essential health measure. For vascular disease, she will proceed with the specialist's plan for repeated ultrasounds. Emphasizing the need to complete delayed health screenings, I addressed her challenges, suggesting consideration of available resources to assist in overcoming these barriers. Discussion Notes In our discussion, I addressed the importance of increasing gabapentin to manage her neuropathy and suggested that smoking cessation would benefit her overall health, particularly in relation to vascular disease. We reviewed the scheduled ultrasounds for her arterial health management. I also highlighted the importance of the postponed mammogram and lung screening, understanding her financial and occupational stress, while suggesting strategies to facilitate access to these essential services. By reinforcing the significance of these follow-ups and potential health risks associated, I aimed to motivate her to pursue comprehensive care. Patient Instructions - Take gabapentin 200 mg three times daily as prescribed. - Consider smoking cessation resources to improve vascular health. - Follow up with the vascular specialist for scheduled ultrasounds. - Attempt to prioritize mammogram and lung cancer screening appointments. - Monitor for any new symptoms or changes in health status and report them promptly. [facility] Medical History (Updated 06/08/24 @ 08:05 by Ramesh Vazquez, [facility]) History of ETOH abuse PAD (peripheral artery disease) AAA (abdominal aortic aneurysm) without rupture Hypertension Hyperlipidemia GERD (gastroesophageal reflux disease) Nicotine dependence, cigarettes, uncomplicated Vitamin D deficiency Surgical History History of repair of anterior cruciate ligament of left knee Social History Housing: House Patient Tobacco Use Status: Current everyday Tobacco user Cigarettes Per Day: 15 Cognitive needs: No Hearing needs: No Vision needs: Yes Telehealth Telehealth Telehealth Platform: [employer] Location of provider rendering services: practice address Location of patient: address on file Patient Identification confirmed using: Name, : Yes Telehealth method: video Patient verbally consented to treatment: Yes Patient verbally consented to billing insurance company: Yes Patient informed of any privacy concerns related to visit: Yes Minutes spent on Phone/Video with Pt.: 12 Assessment & Plan Assessment & Plan (1) Neuropathy: Code(s): G62.9 - Polyneuropathy, unspecified Category: Medical (2) PAD (peripheral artery disease): Code(s): I73.9 - Peripheral vascular disease, unspecified Category: Medical (3) AAA (abdominal aortic aneurysm) without rupture: Comment: (Fusiform infrarenal AAA - measures 3.9 cm on 10/29/23 scan) Code(s): I71.40 - Abdominal aortic aneurysm, without rupture, unspecified Category: Medical Qualifiers: Abdominal aorta location: infrarenal aorta Qualified Code(s): I71.43 - Infrarenal abdominal aortic aneurysm, without rupture Plan . Medications: Changed From gabapentin 100 mg PO TID 30 days 90 caps 2RF To gabapentin 200 mg (2 x 100 mg) PO TID 180 caps 2RF 30 days Refilled betamethasone valerate 0.1% 1 appl topical BID PRN 45 grams 3RF skin irritation 14 days Coding Level of Care Code Tele Est Pt Level 3 (81431) Diagnoses Neuropathy G62.9 PAD (peripheral artery disease) I73.9 Infrarenal abdominal aortic aneurysm (AAA) without rupture I71.43 Abdominal aorta location: infrarenal aorta
== END 2024-09-08 14:25 | disposition home or self-care (01) ==
LOC: HO.HMCC 13:21
PROVIDERS: PCP Nurse Practitioner Family; Visit Provider Nurse Practitioner Family
DX: G62.9 Polyneuropathy, unspecified (principal); I73.9 Peripheral vascular disease, unspecified; I71.43 Infrarenal abdominal aortic aneurysm, without rupture

== ENCOUNTER → 2024-09-08 13:21 | Outpatient (BNVA) | payer OTHER, SELFPAY | PROVIDERS: PCP Nurse Practitioner Family; Visit Provider Nurse Practitioner Family | DX: G62.9 Polyneuropathy, unspecified (principal); I73.9 Peripheral vascular disease, unspecified; I71.43 Infrarenal abdominal aortic aneurysm, without rupture ==

== ENCOUNTER 2024-11-02 09:39 | Outpatient (REF) | payer OTHER, SELFPAY ==
--- NOTE | ~2024-11-02 | US_ITS ---
EXAMINATION: Noninvasive assessment of the bilateral lower extremities with ARTERIAL DUPLEX, ANKLE BRACHIAL INDICES (ABIs), and PULSE VOLUME RECORDINGS (PVRs). CLINICAL INFORMATION: Infrarenal abdominal aortic aneurysm. Peripheral atherosclerosis disease. TECHNIQUE: Duplex Doppler techniques with waveform analysis and measurement of velocities in the bilateral common femoral, profunda femoris, superficial femoral, popliteal and tibial arteries were performed. Additionally, ankle pulse volume recordings, ankle pressure measurements and ankle brachial indices were obtained of the lower extremity arterial system bilaterally. The study was performed only at rest. COMPARISON: December 03, 2023. FINDINGS: DIRECT DUPLEX DOPPLER FINDINGS: RIGHT LEG: Common femoral artery: 85 cm/s, phasicity: Triphasic. Spectral broadening. Profunda femoris artery: 68 cm/s, phasicity: Triphasic. Spectral broadening. Superficial femoral artery (proximal): 96 cm/s, phasicity: Monophasic. Superficial femoral artery (mid): 57 cm/s, phasicity: Face. Superficial femoral artery (distal): 33 cm/s, phasicity: Monophasic. Popliteal artery: 54 cm/s, phasicity: Monophasic. Posterior tibial artery: 34 cm/s, phasicity: Monophasic. Peroneal artery: 12 cm/s, phasicity: Monophasic. Anterior tibial artery: 34 cm/s, phasicity: Monophasic. Dorsalis pedis artery: 9 cm/s, phasicity:Monophasic. LEFT LEG: Common femoral artery: 72 cm/s, phasicity: Monophasic. Profunda femoris artery: 136 cm/s, phasicity: Monophasic. Superficial femoral artery (proximal): No flow on color Doppler interrogation. Superficial femoral artery (mid): 155 cm/s, phasicity: Monophasic. Superficial femoral artery (distal): 33 cm/s, phasicity: Monophasic. Popliteal artery: 35 cm/s, phasicity: Monophasic. Posterior tibial artery: 23 cm/s, phasicity: Monophasic. Peroneal artery: 17 cm/s, phasicity: Monophasic. Anterior tibial artery: 25 cm/s, phasicity: Triphasic. Dorsalis pedis artery: 14 cm/s, phasicity: Monophasic. BRACHIAL PRESSURES: Right: 187 Left: 187 ANKLE PRESSURES: Right: PT 134, DP 134 Left: PT 122, DP 122 ANKLE-BRACHIAL INDEX: Right: 0.72 Left: 0.65 ANKLE PVR WAVEFORMS: Right: Abnormal Left: Abnormal US/US arterial duplex BI w/ AMY IMPRESSION: Right leg: Severe inflow disease throughout the interrogated vessels. Left leg: Severe inflow disease throughout the interrogated vessels. Occluded proximal superficial femoral artery with collateral flow. AMY Reference: - >1.4 = calcified vessels - 0.9 - 1.4 = normal - no significant arterial disease - 0.7 - 0.89 = mild peripheral arterial disease - 0.51 - 0.69 = moderate peripheral arterial disease - d 0.50 = severe peripheral arterial disease - < .30 = critical arterial disease Electronically signed by: Sotero Rodriguez MD 11/04/2024 12:32 PM EDT
--- NOTE | ~2024-11-02 | US_ITS ---
EXAMINATION: US RETROPERITONEAL LIMITED (AORTA) CLINICAL INFORMATION: 4.7 x 4.0 cm infrarenal abdominal aortic aneurysm. COMPARISON: September 02, 2023. TECHNIQUE: Thomas-scale, color Doppler and spectral Doppler evaluation of the abdominal aorta. FINDINGS: The abdominal aorta demonstrates no internal echoes within its lumen. There is normal patency throughout the interrogated segments. There is a crescent-shaped isoechoic abnormality in the anterior right lateral wall of the distal segment. The measurements of the aorta in maximum AP and transverse dimensions respectively are as follows: Proximal: 3.2 x 3.1 cm. Mid: 2.5 x 2.8 cm. Distal: 4.7 x 3.9 cm. The intra-abdominal segment measures 1.8 x 2.5 cm. The measurements of the common iliac arteries in maximum dimensions are as follows: Right: AP: 1.3 cm. TRV: 1.5 cm. Left: AP: 1.5 cm. TRV: 1.4 cm. US/US abdominal aortic aneurysm IMPRESSION: 4.7 x 3.9 cm aneurysm, infrarenal/distal segment, abdominal aorta. Overall stable.. Electronically signed by: Sotero Rodriguez MD 11/04/2024 12:15 PM EDT
== END 2024-11-02 09:40 | disposition home or self-care (01) ==
LOC: HO.US 09:39
PROVIDERS: PCP Nurse Practitioner Family; Visit Provider Surgery Vascular Surgery
DX: I71.43 Infrarenal abdominal aortic aneurysm, without rupture (principal); I73.9 Peripheral vascular disease, unspecified
CPT/HCPCS: 76706; 93922; 93925

== ENCOUNTER → 2024-11-02 09:55 | Outpatient (BNV) | payer OTHER, SELFPAY | PROVIDERS: PCP Nurse Practitioner Family; Visit Provider Radiology Diagnostic Radiology | DX: I71.40 Abdominal aortic aneurysm, without rupture, unspecified (principal); I74.3 Embolism and thrombosis of arteries of the lower extremities | CPT/HCPCS: 76706; 93922; 93925 ==

== ENCOUNTER 2024-11-26 10:48 | Outpatient (AMB) | payer OTHER, SELFPAY ==
--- NOTE | 2024-11-26 11:05 | MHC.OFFVIS ---
Intake Visit Reasons: 1y follow up s/p AAA/Arterial US 11/02/24 Intake Note: Patient presents for follow up arterial/us 11/02/24. Patient states her feet are painful, burning and feel like they are turning to stone . Accompanied by: Friends Allergies cat dander [CATS] Allergy (Severe, Verified 11/26/24 11:09) SHORTNESS OF BREATH HPI HPI 1y follow up s/p AAA/Arterial US 11/02/24: Details: The patient is a 54-year-old female presenting with bilateral lower extremity claudication and chronic pain indicative of peripheral arterial disease. She experiences persistent soreness and a sensation as if her feet are turning to stone. These symptoms are aggravated by ambulation, with increased difficulty noted over time. She reports being able to walk necessary distances despite significant pain. Notable is her report of calf cramping linked to tight musculature from an equinus foot deformity diagnosed by a hr business partner. She denies diabetes or back pain but confirms smoking about a pack daily. She now presents for aortic surveillance and lower extremity arterial surveillance follow-up. Of note patient is being maintained on aspirin and statin [facility] Medical History (Updated 06/08/24 @ 08:05 by Ramesh Vazquez, [facility]) History of ETOH abuse PAD (peripheral artery disease) AAA (abdominal aortic aneurysm) without rupture Hypertension Hyperlipidemia GERD (gastroesophageal reflux disease) Nicotine dependence, cigarettes, uncomplicated Vitamin D deficiency Surgical History History of repair of anterior cruciate ligament of left knee Social History Housing: House Patient Tobacco Use Status: Current everyday Tobacco user Cigarettes Per Day: 15 Cognitive needs: No Hearing needs: No Vision needs: Yes Review of Systems Const All systems reviewed & are unremarkable except as noted in HPI and below Reports no additional complaints ENT Reports Normal hearing present Card Denies chest pain, Denies chest pain at rest, Denies chest pain with activity and Denies pedal edema Resp Denies cough GI Denies abdominal pain Musc Denies abnormal gait, Denies muscle cramps and Denies radiating pain into limb Skin/Breast Denies skin ulcer and Denies wounds Neuro Reports Normal hearing present and Denies abnormal gait Psych Reports no additional complaints Physical Exam Const General: cooperative, healthy appearing and comfortable Orientation/consciousness: oriented to person, oriented to place and oriented to time HEENT Head: Yes normal to inspection Neck Neck: Yes normal visual inspection Carotids: no bruits Chest Chest palpation & inspection: normal inspection of the chest Resp Effort & Inspection: normal respiratory effort and able to speak in complete sentences Auscultation: clear to auscultation bilaterally, no crackles, no rales, no rhonchi and no wheezes Cardio Other: Bilateral DP signals Rate: regular rate Rhythm: regular rhythm Heart sounds: S1 normal heart sound present and S2 normal heart sound present Bruits: no carotid bruits Peripheral pulses: Peripheral pulses 2+ throughout GI Inspection: Yes normal to inspection Skin Wounds: no wounds Hair: normal Neuro General: oriented to person, oriented to place and oriented to time Cranial nerves: Yes CN's II-XII intact bilaterally and Yes Normal hearing present Cognition (Neuro): normal cognition Motor exam (neuro): 5/5 motor strength present throughout Extrem Other: venous exam: No significant superficial varicosities or spider telangiectasias, minimal edema General: No clubbing, No cyanosis and No edema Psych Appearance: grossly normal Mental Status: mental status grossly normal Speech and movement: Normal speech and movement present Results Reviewed Results Reviewed: Noninvasive arterial testing dated 11/02/2024 demonstrates AMY on the right of 0.72 and on the left of 0.65. Aortic aneurysm measures 4.1 cm Assessment & Plan Assessment & Plan (1) AAA (abdominal aortic aneurysm) without rupture: Comment: (Fusiform infrarenal AAA - measures 3.9 cm on 10/29/23 scan) Code(s): I71.40 - Abdominal aortic aneurysm, without rupture, unspecified Category: Medical Qualifiers: Abdominal aorta location: infrarenal aorta Qualified Code(s): I71.43 - Infrarenal abdominal aortic aneurysm, without rupture Plan: In short patient has radiologic evidence of a AAA on 4.1 cm on ultrasound. We have discussed the pathophysiology of aortic aneurysms and the risk of ruptures. We have discussed rupture risk based on size. In addition we have discussed conservative measures and risk factor modification for prevention of increase in size of the aneurysm. the patient is scheduled for surveillance follow-up in approximately 1 year. Thank you for allowing us to participate in the care of this patient (2) PAD (peripheral artery disease): Code(s): I73.9 - Peripheral vascular disease, unspecified Category: Medical Plan: Patient notes leg pain when walking distances. I have discussed the pathophysiology of peripheral vascular disease with the patient. I have also discussed risk factor modification. I have reviewed the patient's arterial testing which reveals left SFA disease. the patient would benefit from a left leg endovascular peripheral angiogram with possible angioplasty, stent, and/or atherectomy. This has been discussed in detail with the patient along with risks, benefits, and complications. This includes but is not limited to bleeding, infection, heart attack, need for emergent surgical repair, limb ischemia, blood vessel damage, bleeding, puncture, kidney injury, bruising, allergic reaction, and skin reaction. The patient demonstrates a clear understanding. We will schedule for the next appropriate time. Thank you for allowing us to assist in this patient's care. Orders: Orders US abdominal aortic aneurysm 1 Year I71.43 - Infrarenal abdominal aortic aneurysm, without rupture Coding Level of Care Code Est Pt Level 4 (81826) Diagnoses Infrarenal abdominal aortic aneurysm (AAA) without rupture I71.43 Abdominal aorta location: infrarenal aorta PAD (peripheral artery disease) I73.9
== END 2024-11-26 11:24 | disposition home or self-care (01) ==
LOC: HO.HVS 10:49
PROVIDERS: PCP Nurse Practitioner Family; Visit Provider Surgery Vascular Surgery
DX: I71.43 Infrarenal abdominal aortic aneurysm, without rupture (principal); I73.9 Peripheral vascular disease, unspecified
CPT/HCPCS: 99214

== ENCOUNTER → 2024-11-26 10:48 | Outpatient (BNVA) | payer OTHER, SELFPAY | PROVIDERS: PCP Nurse Practitioner Family; Visit Provider Surgery Vascular Surgery | DX: I71.43 Infrarenal abdominal aortic aneurysm, without rupture (principal); I73.9 Peripheral vascular disease, unspecified; Z79.82 Long term (current) use of aspirin; Z79.899 Other long term (current) drug therapy | CPT/HCPCS: 99212 ==

== ENCOUNTER 2024-12-02 06:02 | Day surgery (SDC) | payer OTHER, SELFPAY ==
[2024-12-02] VITALS (14 sets, daily range): BP systolic 137–173; BP diastolic 81–98; PULSE 61–72; RESP 11–16; TEMP 35.8–37; O2SAT 95–100; BMI 28.4
[2024-12-02 06:29] LABS: MANUAL DIFF FLAG NO
[2024-12-02 06:38] LABS: Basophils Absolute Auto 0.1 X10*3/uL (0.0-0.2); Basophils Percent Auto 0.8 % (0-2); Eosinophils Absolute Auto 0.5 X10*3/uL (0.0-0.4); Eosinophils Percent Auto 3.8 % (0-4); Hemoglobin 15.2 g/dl (12.0-16.0); Imm Gran Abs Auto 0.06 X10*3/uL (0.00-0.03); Imm Gran Pct Auto 0.5 % (0.0-0.4); Lymphocytes Absolute Auto 2.3 X10*3/uL (1.2-4.9); Lymphocytes Percent Auto 17.5 % (20-40); Mean Corpuscular HGB Conc 34.5 g/dl (31.0-35.0); Mean Corpuscular Hemoglobin 37.8 pg (27.0-33.0); Mean Corpuscular Volume 109.5 fL (80.0-98.0); Mean Platelet Volume 9.3 fL (9.4-12.3); Monocytes Absolute Auto 0.8 X10*3/uL (0.1-1.2); Monocytes Percent Auto 6.5 % (2-11); Neutrophils Absolute Auto 9.2 x10*3/uL (2.0-8.3); Neutrophils Percent Auto 70.9 % (45-73); Platelet Count 346 X10*3/uL (160-400); Red Blood Count 4.02 X10*6/uL (4.20-5.50); Red Cell Distribution Width 14.2 % (11.0-16.0)
[2024-12-02 06:55] LABS: Blood Urea Nitrogen 12 mg/dL (9-16); Creatinine Clr Calc Pharmacy 132.5; Estimated Glomerular Filt Rate > 60
[2024-12-02] MEDS: 0.9 % Sodium Chloride 1,000 ML 100 ML IVCONT (07:19)
[2024-12-02] MEDS: Midazolam HCl 2 MG/2 ML VIAL 0.5 MG IVPUSH (08:00)
[2024-12-02] MEDS: fentaNYL citrate/PF 100 MCG/2 ML VIAL 25 MCG IVPUSH (08:00)
--- NOTE | 2024-12-02 09:00 | P.OP_ITS ---
Operative Note Operative Note Date of Service: 12/02/24 Narrative: Angiogram report from [facility] Preoperative diagnosis: Atherosclerosis of left lower extremity with nonhealing ulcer Postoperative diagnosis: Same Procedure: 1. Ultrasound-guided right common femoral access 2. Aortogram with bilateral lower extremity runoff Surgeon:Abraham Senior M.D., FACS, RPVI Special Needs Bus Driver:None Anesthesia: Local with moderate conscious sedation. Total intraservice moderate sedation time was 23 minutes. I monitored the patient's level of consciousness and physiologic status continuously throughout the procedure. Specimens:none Drains:none Estimated blood loss: Less than 10 ml Radiation Dose: 186.4 mGy Implant: None Indications: 54-year-old female with severe activity limiting claudication and now blistering of the feet presents for endovascular intervention The patient has signed the informed consent after reviewing risks, complications, benefits, and alternatives previously discussed with the patient. The patient was given the opportunity to ask any additional questions or voice any concerns. All questions were answered to the patient's satisfaction. Procedure in detail: Patient was brought to the angiography suite prior to which a time-out was called for patient identification and site verification. Bilateral groins were prepped and draped in the standard surgical fashion. Under ultrasound guidance right common femoral was punctured with micro puncture needle and wire. Subsequently a precision 5 Mexican sheath was then placed. Bentson wire was advanced to the level of the aorta. 5 Mexican Flush catheter was brought up and parked at the level of the renal arteries. Aortogram was then undertaken. Catheter was brought down to the level of the iliac bifurcation. Iliacs and runoff was performed through the flush catheter that was parked at the bifurcation and a power injection was performed to visualize bilateral runoff vessels. Subsequently the catheter was then brought in up and over to the left side common femoral. SFA was totally occluded. We did a runoff study with multiple orthogonal views. At this time no intervention was indicated. Catheter wire sheath was removed. A 5 Mexican CELT closure device was then placed. Interpretation of films: 1. Ultrasound demonstrates appropriate femoral access site. Vessel was patent with minimal stenosis. Needle entry was visualized. Image of ultrasound was saved. 2. Aortogram demonstrates appropriate caliber aorta. Minimal disease. Appropriate take-off of the renals. 3. Iliac images demonstrate no significant disease 4. Left Leg Common femoral artery: No significant disease Profundus Femoris: No significant disease Superficial femoral artery: Total occlusion with reconstitution at the above knee popliteal Popliteal artery (p1,p2,p3): Mild to moderate stenosis on P1; P2- 3 were within normal limits Anterior tibial artery: No significant disease Peroneal artery: No significant disease Posterior tibial artery: No significant disease Dorsalis pedis/plantar arch: Incomplete 5. right Leg Common femoral artery: No significant disease Profundus Femoris: No significant disease Superficial femoral artery: No significant disease Popliteal artery (p1,p2,p3): No significant disease Anterior tibial artery: No significant disease Peroneal artery: No significant disease Posterior tibial artery: No significant disease Dorsalis pedis/plantar arch: Not visualize Conclusion: 1. Successful diagnostic angiogram, we will need femoral to above knee popliteal bypass 2. Anticoagulation status: No change This note is constructed using voice recognition software. While every effort has been made to ensure accuracy, network relations consultant errors may have been included. Thank you for allowing me to participate in the care of your patient. Yours sincerely, Abraham Senior MD, FACS, R.P.V.I.
== END 2024-12-02 10:56 | disposition home or self-care (01) ==
PROVIDERS: PCP Nurse Practitioner Family; Visit Provider Surgery Vascular Surgery
DX: I70.249 Atherosclerosis of native arteries of left leg with ulceration of unspecified site (principal); G89.29 Other chronic pain; R25.2 Cramp and spasm; R26.2 Difficulty in walking, not elsewhere classified; Q66.00 Congenital talipes equinovarus, unspecified foot; I71.43 Infrarenal abdominal aortic aneurysm, without rupture; I10 Essential (primary) hypertension; E78.5 Hyperlipidemia, unspecified; F10.11 Alcohol abuse, in remission; F17.210 Nicotine dependence, cigarettes, uncomplicated; E55.9 Vitamin D deficiency, unspecified; Z98.890 Other specified postprocedural states
CPT/HCPCS: 36247; 36415; 75630; 76937; 82565; 84520; 85025; 99152; C1760; C1769; C1887; C1894; J1644; J2250; J3010; Q9967

== ENCOUNTER → 2024-12-02 06:02 | Outpatient (BNV) | payer OTHER, SELFPAY | PROVIDERS: PCP Nurse Practitioner Family; Visit Provider Surgery Vascular Surgery | DX: I70.249 Atherosclerosis of native arteries of left leg with ulceration of unspecified site (principal) | CPT/HCPCS: 36246; 75630; 76937; 99152 ==

== ENCOUNTER 2024-12-10 12:48 | Outpatient (AMB) | payer OTHER, SELFPAY ==
[2024-12-10 12:58] VITALS: BMI 28.6
--- NOTE | 2024-12-10 12:58 | MHC.OFFVIS ---
Vital Signs 12/10/24 12:58 Height 5 ft 8 in Weight 188 lb BMI 28.6 Intake Visit Reasons: 1 week follow up s/p L leg angio 12/02/24 Intake Note: followup Left LE angio 12/02/24. Pt was at [facility] last night for non-healing ucler on left plantar area and was given abx and pain medicine. Pt states heavy drainage. Daily dressing changes done at home. Strip Feeder Required: No Accompanied by: Family/Other Allergies cat dander [CATS] Allergy (Severe, Verified 12/10/24 13:00) SHORTNESS OF BREATH HPI HPI 1 week follow up s/p L leg angio 12/02/24: Details: The patient is a 54-year-old female presenting with concerns regarding a foot wound infection following an angiogram performed at [facility]. The wound developed into a blister with discharge of varying colors and associated pain rated 8 to 9 out of 10. The patient suffers from bilateral plantar fasciitis creating a sensation described as turning to stone, with increased symptoms in the affected left foot due to arterial blockage. Patient is now for routine postprocedure follow-up. [facility] Medical History (Updated 12/11/24 @ 09:01 by Abraham Senior MD) History of ETOH abuse PAD (peripheral artery disease) AAA (abdominal aortic aneurysm) without rupture Hypertension Hyperlipidemia GERD (gastroesophageal reflux disease) Nicotine dependence, cigarettes, uncomplicated Vitamin D deficiency Surgical History History of repair of anterior cruciate ligament of left knee Social History Housing: House Patient Tobacco Use Status: Current everyday Tobacco user Tobacco use type: Cigarette Cigarettes Per Day: 10 Cognitive needs: No Hearing needs: No Vision needs: Yes Review of Systems Const All systems reviewed & are unremarkable except as noted in HPI and below Reports no additional complaints ENT Reports Normal hearing present Card Denies chest pain, Denies chest pain at rest, Denies chest pain with activity and Denies pedal edema Resp Denies cough GI Denies abdominal pain Musc Denies abnormal gait, Denies muscle cramps and Denies radiating pain into limb Skin/Breast Denies skin ulcer and Denies wounds Neuro Reports Normal hearing present and Denies abnormal gait Psych Reports no additional complaints Physical Exam Vital Signs: BMI result Body Mass Index 28.6 Const General: cooperative, healthy appearing and comfortable Orientation/consciousness: oriented to person, oriented to place and oriented to time HEENT Head: Yes normal to inspection Neck Neck: Yes normal visual inspection Carotids: no bruits Chest Chest palpation & inspection: normal inspection of the chest Resp Effort & Inspection: normal respiratory effort and able to speak in complete sentences Auscultation: clear to auscultation bilaterally, no crackles, no rales, no rhonchi and no wheezes Cardio Rate: regular rate Rhythm: regular rhythm Heart sounds: S1 normal heart sound present and S2 normal heart sound present Bruits: no carotid bruits Peripheral pulses: Peripheral pulses 2+ throughout GI Inspection: Yes normal to inspection Skin Other: Nonhealing left plantar surface ulceration. Wounds: no wounds Hair: normal Neuro General: oriented to person, oriented to place and oriented to time Cranial nerves: Yes CN's II-XII intact bilaterally and Yes Normal hearing present Cognition (Neuro): normal cognition Motor exam (neuro): 5/5 motor strength present throughout Extrem Other: venous exam: No significant superficial varicosities or spider telangiectasias, minimal edema General: No clubbing, No cyanosis and No edema Psych Appearance: grossly normal Mental Status: mental status grossly normal Speech and movement: Normal speech and movement present Assessment & Plan Assessment & Plan (1) PAD (peripheral artery disease): Comment: 12/02/2024 - diagnostic angiogram Code(s): I73.9 - Peripheral vascular disease, unspecified Category: Medical Plan: In short patient has a left SFA occlusion. In addition she has nonhealing ulcer of the foot. Patient will require left femoral to popliteal bypass. I discussed with the patient the need for surgical intervention due to the identified arterial blockage in her left leg, specifying the procedure's benefits and the typical hospital course. Informed consent is obtained for a vascular bypass with the grafting technique outlined due to its less invasive properties above the knee. Risks discussed included surgical infection, prolonged hospital stay if complications arise, and possible non-improvement of neuropathic symptoms. Short-term postoperative ICU stay was proposed, and the benefit of improved blood flow to wound healing was emphasized. Referral to dermatology and podiatry post-surgery was also discussed, along with the importance of smoking cessation in improving long-term vascular health outcomes. She will require cardiac risk stratification prior to surgery. Thank you for allowing us to assist in her care. If there are any questions or concerns please do not hesitate to contact us. Coding Level of Care Code Est Pt Level 4 (59523) Complex EM visit Add On G2211 Diagnoses PAD (peripheral artery disease) I73.9
== END 2024-12-10 14:17 | disposition home or self-care (01) ==
LOC: HO.HVS 12:49
PROVIDERS: PCP Nurse Practitioner Family; Visit Provider Surgery Vascular Surgery
DX: I73.9 Peripheral vascular disease, unspecified (principal)
CPT/HCPCS: 99214; G2211

== ENCOUNTER → 2024-12-10 12:48 | Outpatient (BNVA) | payer OTHER, SELFPAY | PROVIDERS: PCP Nurse Practitioner Family; Visit Provider Surgery Vascular Surgery | DX: I73.9 Peripheral vascular disease, unspecified (principal) | CPT/HCPCS: 99212 ==

== ENCOUNTER 2024-12-14 | Outpatient (REF) | payer OTHER, SELFPAY ==
--- NOTE | 2024-12-14 | ECG_ITS ---
Test Reason : preop Blood Pressure : */* mmHG Vent. Rate : 66 BPM Atrial Rate : 66 BPM P-R Int : 172 ms QRS Dur : 100 ms QT Int : 414 ms P-R-T Axes : 49 -21 -8 degrees QTcB Int : 434 ms Normal sinus rhythm Left ventricular hypertrophy with repolarization abnormality ( R in aVL , [place] product ) Abnormal ECG When compared with ECG of 31-May-2005 17:19, T wave inversion now evident in Anterior leads Referred By: Carlita Mejia Electronically Signed By: EMANUEL RANDALL MD
[2024-12-14 13:18] VITALS: BP 136/83; PULSE 71; RESP 20; O2SAT 99; BMI 28.3
--- NOTE | 2024-12-14 13:30 | HO.ANESPROP2 ---
HPI - Anesthesia Eval Consult details Narrative: Pending cardiac cath 54yo F for Left Femoral Popliteal Bypass Graft, 12/28/24 Cardiac clearance pending nuc stress and echo No recent illness No CP/SOB with limited activity Active smoker GERD: ppi prn - takes 4 x weekly AAA: 4.7cm on 10/2024 [facility] Active Problems Active Problems: All Active Problems Leukocytosis (Acute) UTI (urinary tract infection) (Acute) Neuropathy (Acute) Heart palpitations (Acute) Systolic murmur (Acute) Foot pain, bilateral (Acute) History of ETOH abuse (Acute) Nicotine dependence, cigarettes, uncomplicated (Acute) Vitamin D deficiency (Acute) PAD (peripheral artery disease) (Acute) AAA (abdominal aortic aneurysm) without rupture (Acute) Past Medical History Medical History Plantar fasciitis Arthritis History of ETOH abuse Nicotine dependence, cigarettes, uncomplicated GERD (gastroesophageal reflux disease) Hyperlipidemia Hypertension Vitamin D deficiency PAD (peripheral artery disease) AAA (abdominal aortic aneurysm) without rupture Family History Family History Father Emphysema lung Mother No problems noted. Family history of problems with anesthesia: No Surgical History Surgical History S/P aortogram History of repair of anterior cruciate ligament of left knee History of Problems with Anesthesia: No Social History Social History Housing: House Housing Other:: first floor of two family home Are you a primary primary health care nurse to a significant other at home: No Do you presently have visiting nurse or other home services: No Comment: advised of trip hazard Patient Tobacco Use Status: Current everyday Tobacco user Tobacco use type: Cigarette Cigarettes Per Day: 15 Years Smoked: 30 Cognitive needs: No Hearing needs: No Vision needs: Yes Meds Allergies Allergy/AdvReac Type Severity Reaction Status Date / Time cat dander (CATS) Allergy Severe SHORTNESS Verified 12/24/24 11:31 OF BREATH Home Medications ?Medication ?Instructions ?Recorded ?Confirmed ?Last Taken ?Type omeprazole 10 mg capsule,delayed 10 mg PO DAILY PRN Acid Reflux 03/05/23 12/24/24 Unknown History release gabapentin 100 mg capsule 300 mg PO QPM 12/14/24 12/24/24 Unknown History Exam Height,Weight and Vital Signs: Height 5 ft 8 in Weight 84.368 kg Last Vital Signs Pulse 71 12/14/24 13:18 Resp 20 12/14/24 13:18 BP 136/83 12/14/24 13:18 Pulse Ox 99 12/14/24 13:18 O2 Del Method Room Air 12/14/24 13:18 Pertinent Lab Results Pertinent Lab Results: Lab Results 12/14/24 12/14/24 Range/Units 14:03 14:13 WBC 14.1 H (4.8-10.8) X10*3/uL RBC 3.93 L (4.20-5.50) X10*6/uL Hgb 15.0 (12.0-16.0) g/dl Hct 42.9 (37.0-47.0) % MCV 109.2 H (80.0-98.0) fL MCH 38.2 H (27.0-33.0) pg MCHC 35.0 (31.0-35.0) g/dl RDW 14.2 (11.0-16.0) % Plt Count 327 (160-400) X10*3/uL MPV 9.8 (9.4-12.3) fL Absolute Nucleated RBC 0.000 (0.0-0.012) X10*3/uL Nucleated RBC % (auto) 0.0 (0.0-0.2) /100WBC PT 12.0 (10.9-12.4) SEC INR 1.0 (0.9-1.1) APTT 33.8 (26.0-36.8) SEC Sodium 138 (135-145) mmol/L Potassium 3.5 (3.3-5.1) mmol/L Chloride 97 (96-108) mmol/L Carbon Dioxide 34 H (22-29) mmol/L Anion Gap 11 L (12-20) BUN 10 (9-16) mg/dL Creatinine 0.63 (0.5-1.4) mg/dL Estim Creat Clear Calc 117.5 Estimated GFR > 60 Random Glucose 104 (60-115) mg/dL Calcium 10.0 (8.4-10.2) mg/dL Total Bilirubin 0.6 (0.0-1.0) mg/dL AST 21 (5-31) U/L ALT 28 (0-31) U/L Alkaline Phosphatase 57 (39-117) U/L Total Protein 7.4 (6.5-8.0) g/dL Albumin 4.5 (3.5-5.0) g/dL Blood Type O Positive Antibody Screen NEGATIVE Narrative Narrative: EKG 12/2024 EKG Details: EKG with underlying sinus rhythm at 74/Min; inferior and anterolateral downsloping STs; normal VT and corrected QT. US abdominal aortic aneurysm 10/2024 IMPRESSION: 4.7 x 3.9 cm aneurysm, infrarenal/distal segment, abdominal aorta. Overall stable.. Airway Mallampati Class: II TM Dist: >3cm Neck ROM: Full Loose/Missing/Broken Teeth: Yes (1 x molar pulled) Heart: RRR Lungs: CTAB Assessment and Plan Assessment Anesthesia Assessment: Anesthesia Plan Discussed, Smoking Cess. Discussed and PAT Visit Final Anesthetic Review Family History of Problems with Anesthesia: No History of Problems with Anesthesia: No
[2024-12-14 14:40] LABS: Partial Thromboplastin Time 33.8 SEC (26.0-36.8)
[2024-12-14 14:42] LABS: Hematocrit 42.9 % (37.0-47.0); Mean Corpuscular Hemoglobin 38.2 pg (27.0-33.0); Mean Corpuscular Volume 109.2 fL (80.0-98.0); Red Blood Count 3.93 X10*6/uL (4.20-5.50); White Blood Count 14.1 X10*3/uL (4.8-10.8)
[2024-12-14 14:43] LABS: Mean Platelet Volume 9.8 fL (9.4-12.3); Platelet Count 327 X10*3/uL (160-400); Red Cell Distribution Width 14.2 % (11.0-16.0)
[2024-12-14 15:16] LABS: Alanine Aminotransferase 28 U/L (0-31); Albumin Level 4.5 g/dL (3.5-5.0); Alkaline Phosphatase 57 U/L (39-117); Anion Gap 11 (12-20); Aspartate Amino Transferase 21 U/L (5-31); Bilirubin Total 0.6 mg/dL (0.0-1.0); Blood Urea Nitrogen 10 mg/dL (9-16); Carbon Dioxide 34 mmol/L (22-29); Chloride 97 mmol/L (96-108); Creatinine Clr Calc Pharmacy 117.5; Estimated Glomerular Filt Rate > 60; Glucose Random 104 mg/dL (60-115); Potassium 3.5 mmol/L (3.3-5.1); Sodium 138 mmol/L (135-145); Total Protein 7.4 g/dL (6.5-8.0)
== END 2024-12-14 00:01 | disposition home or self-care (01) ==
LOC: HO.PAT
PROVIDERS: Nurse Practitioner; PCP Nurse Practitioner Family; Visit Provider Surgery Vascular Surgery
DX: I73.9 Peripheral vascular disease, unspecified (principal)
CPT/HCPCS: 36415; 80053; 85027; 85610; 85730; 86850; 86900; 86901; 93005

== ENCOUNTER → 2024-12-14 13:56 | Outpatient (BNV) | payer OTHER, SELFPAY | PROVIDERS: Admitting Provider Surgery Vascular Surgery; PCP Nurse Practitioner Family; Visit Provider Internal Medicine Cardiovascular Disease | DX: I51.7 Cardiomegaly (principal) | CPT/HCPCS: 93010 ==

== ENCOUNTER 2024-12-16 15:04 | Outpatient (AMB) | payer OTHER, SELFPAY ==
--- NOTE | 2024-12-16 15:08 | MHC.OFFVIS ---
Vital Signs 12/16/24 15:15 Height 5 ft 8 in Weight 187 lb BMI 28.4 BP 120/68 Blood Pressure Location Lt brachial Position Sitting Pulse 74 Pulse Source Monitor Intake Visit Reasons: Preop / Nadeen/left fem bypass graft Allergies cat dander [CATS] Allergy (Severe, Verified 12/10/24 13:00) SHORTNESS OF BREATH Medication List - Last Reconciled 12/16/24 by Godwin Ferrera MD aspirin (Adult Aspirin Regimen) 81 mg PO DAILY atorvastatin 20 mg PO BEDTIME betamethasone valerate 0.1% 1 appl topical BID PRN 14 days cholecalciferol (vitamin D3) 50 mcg PO DAILY 90 days doxycycline hyclate 100 mg PO BID gabapentin 300 mg PO QPM losartan-hydrochlorothiazide 50-12.5 mg 1 tab PO DAILY 90 days omeprazole 10 mg PO DAILY PRN oxycodone 5 mg PO Q6H PRN HPI Comments Details: Althea is here for consultation regarding preoperative risk stratification for left femoral arterial to popliteal bypass. Patient herself does not have any known cardiac issues. No known coronary disease myocardial infarction or cardiomyopathy. Limited physical activity because of the vascular issues. There is also a nonhealing ulcer in the left plantar area. From the cardiac standpoint, she has not noticed any clear-cut symptoms like angina but she is not too active either. History of smoking. Hypertension and dyslipidemia. [facility] Medical History (Updated 12/16/24 @ 15:26 by Godwin Ferrera MD) Plantar fasciitis Arthritis History of ETOH abuse Nicotine dependence, cigarettes, uncomplicated GERD (gastroesophageal reflux disease) Hyperlipidemia Hypertension Vitamin D deficiency PAD (peripheral artery disease) AAA (abdominal aortic aneurysm) without rupture Surgical History (Updated 12/14/24 @ 13:11 by Zora Solis RN) S/P aortogram History of repair of anterior cruciate ligament of left knee Family History (Updated 12/16/24 @ 15:22 by Godwin Ferrera MD) Father Emphysema lung Mother No problems noted. Social History Housing: House Housing Other:: first floor of two family home Are you a primary home care liaison to a significant other at home: No Do you presently have visiting nurse or other home services: No Comment: advised of trip hazard Patient Tobacco Use Status: Current everyday Tobacco user Tobacco use type: Cigarette Cigarettes Per Day: 15 Years Smoked: 30 Cognitive needs: No Hearing needs: No Vision needs: Yes Review of Systems Const Denies weakness ENT Denies dizziness Card Denies chest pain, Denies chest pain with activity, Denies syncope, Denies rapid heart rate, Denies pedal edema, Denies edema, Denies leg edema, Denies lightheadedness, Denies palpitations, Denies dyspnea, Denies dyspnea on exertion and Denies orthopnea Resp Denies cough, Denies dyspnea and Denies dyspnea on exertion GI Denies hematochezia and Denies change in stool character Musc Denies abnormal gait, Denies muscle cramps, Denies muscle weakness, Denies numbness, Denies radiating pain into limb and Denies tingling Neuro Denies abnormal gait, Denies dizziness, Denies syncope, Denies numbness, Denies tingling and Denies weakness Endo Denies palpitations Physical Exam Vital Signs: Last Vital Signs Pulse 74 12/16/24 15:15 BP 120/68 12/16/24 15:15 BMI result Body Mass Index 28.4 Const General: comfortable and no acute distress Orientation/consciousness: patient oriented x3 HEENT Other: Unremarkable Head: Yes normal to inspection Neck Neck: Yes normal visual inspection Chest Chest palpation & inspection: normal inspection of the chest Resp Auscultation: clear to auscultation bilaterally Cardio Palpation: normal PMI Heart sounds: S1 normal heart sound present, S2 normal heart sound present, no gallops, Murmur heart sound present systolic II/ and at the right sternal border and no rubs GI Palpation (GI): Soft to palpation Back/Spine/Pelvis Other: unremarkable Skin General skin exam: no rashes or lesions noted Neuro General: patient oriented x3 Extrem General: Yes normal to inspection Psych Mental Status: mental status grossly normal Office Procedures EKG Details: EKG with underlying sinus rhythm at 74/Min; inferior and anterolateral downsloping STs; [place] [id number], Complete Assessment & Plan Assessment & Plan (1) Preoperative cardiovascular examination: Code(s): Z01.810 - Encounter for preprocedural cardiovascular examination Category: Medical (2) PAD (peripheral artery disease): Comment: 12/02/2024 - diagnostic angiogram Code(s): I73.9 - Peripheral vascular disease, unspecified Category: Medical Plan EKG shows inferior and anterolateral downsloping STs. Could be either ischemia versus left ventricular hypertrophy. She needs further risk stratification before vascular surgery. Recommend an echocardiogram and pharmacological stress perfusion imaging study. Based on the findings, we will plan further care. If abnormal, we will need diagnostic catheterization as well. Patient and sister agree. We will try to expedite the above to accommodate for surgery. Discussion Notes During our consultation, I explained to the patient the concerns regarding her cardiovascular health based on the EKG abnormalities and existing diagnosis of PAD, all of which necessitate an immediate pre-operative cardiac assessment. I advised that she would require an echocardiogram and a stress test to determine the presence and extent of coronary artery blockages. This assessment will further guide the treatment plan and risk classification, affecting her upcoming surgery. Should the stress test confirm significant cardiac issues, surgical plans may be adjusted, including potential angiographic evaluation. I informed her of the risks associated with the procedure, including the potential for surgical delay if tests return unfavorable results. I reiterated the necessity of quitting smoking to mitigate her surgical and long-term health risks. The patient acknowledged the plan and expressed understanding of the outlined evaluations and their implications on her surgical pathway. Patient was informed and verbally consented to the use of an ambient scribe for clinic note documentation during this visit. Orders: Orders CA echo transthoracic complete Today Z01.810 - Encounter for preprocedural cardiovascular examination CA lexiscan stress w mirna Today Z01.810 - Encounter for preprocedural cardiovascular examination NM cardiolite stress test Today Z01.810 - Encounter for preprocedural cardiovascular examination Patient Instructions: - Stop smoking immediately to lower health and surgical risks. - Prepare for a stress test and echocardiogram to be done as soon as possible. - Ensure all prescribed medications for hypertension and hyperlipidemia are continued as directed. - Notify us or seek medical attention if experiencing new or worsening chest pain, shortness of breath, or other concerning symptoms. - Follow-up will proceed post-evaluation to discuss test results and further surgical planning. Coding Level of Care Code New Pt Level 5 (68683) Complex EM visit Add On G2211 Diagnoses Preoperative cardiovascular examination Z01.810 PAD (peripheral artery disease) I73.9 CPT Codes EKG - CPT: 20707-[id number], Complete ([id number])
[2024-12-16 15:15] VITALS: BP 120/68; PULSE 74; BMI 28.4
== END 2024-12-16 15:35 | disposition home or self-care (01) ==
LOC: HO.HCS 15:05
PROVIDERS: PCP Nurse Practitioner Family; Visit Provider Internal Medicine
DX: Z01.818 Encounter for other preprocedural examination (principal); I73.9 Peripheral vascular disease, unspecified; R94.31 Abnormal electrocardiogram [ECG] [EKG]
CPT/HCPCS: 93010; 99204; G2211

== ENCOUNTER → 2024-12-16 15:04 | Outpatient (BNVA) | payer OTHER, SELFPAY | PROVIDERS: PCP Nurse Practitioner Family; Visit Provider Internal Medicine | DX: Z01.810 Encounter for preprocedural cardiovascular examination (principal); I73.9 Peripheral vascular disease, unspecified | CPT/HCPCS: 93005; 99202 ==

== ENCOUNTER → 2024-12-23 09:18 | Outpatient (REF) | payer OTHER, SELFPAY ==
--- NOTE | ~2024-12-23 | NM_ITS ---
Lexiscan Myocardial perfusion study Indication: Preoperative cardiac evaluation Technique: The patient was brought in for a Lexiscan perfusion study on 12/23/2024 and was injected 0.4 mg of Lexiscan intravenously. Within a minute of this injection 30 mCi of sestamibi was given intravenously. Images were obtained using the SPECT gamma camera interlaced with the gating device. Images were obtained in supine position. Resting perfusion study was performed on 12/24/2024. Patient was administered 30 mCi of sestamibi intravenously at rest. Images were then obtained in supine position. Total DLP 66 mGy-cm. Images were processed with the software and compared side to side in short axis, horizontal long axis and vertical long axis views. Findings: Raw aquisition reviewed. The stress perfusion study showed decreased tracer uptake in the distal part of anteroseptal wall; distal anterior wall; basal inferior wall. With CT attenuation correction, there is improvement with basal inferior wall uptake which could indicate concretion from attenuation artifact. The gated study shows normal LV systolic function with calculated LVEF of 69%. LV cavity is normal in size. The gated study shows suggestion reduced contractility in the distal anterior/anteroseptal wall and possibly basal inferior wall. Resting study shows reduced tracer uptake in the basal part of inferior wall. There is improvement with CT attenuation correction suggestive of components of diaphragmatic attenuation artifact. Gating at rest reveals normal wall motion with ejection fraction at 65%. The findings are consistent with small reversible perfusion defects in the distal part of the septal wall, distal anterior wall. Fixed inferior perfusion defect in the basal part. NM/NM cardiolite stress test Impression: 1. Myocardial perfusion imaging study shows distal anterior, anteroseptal ischemia. Fixed defect in the basal inferior wall which could be from diaphragmatic attenuation artifact, but cannot exclude prior nontransmural infarct. 2. Gated LVEF is 69% during stress and 65% during rest. 3. Transient ischemic dilatation not present. EKG component of the test reported separately. Electronically signed by: Godwin Ferrera MD 12/24/2024 03:57 PM EDT
--- NOTE | 2024-12-23 11:52 | CA_ITS ---
Acquisition Time: 2024-12-23 09:28:42 Total Exercise Time: 00:02:00 Test Indications: PREOP Medications: Protocol: LEXISCAN Max HR: 89 BPM 53% of Pred: 167 BPM Max BP: 180/90 mmHG Max Work Load: 1.0 METS Pharmacological stress test with Lexiscan while pt moves her legs in chair, with reports of SOB, without any arrythmias, with normotensive response to injection. Nondiagnostic EKG for ischemia. In recovery, pt's breathing improved and feeling back to baseline. Nuclear images pending. Test reviewed with Dr. Hernandez. PS- baseline HTN, did not take her BP meds night before and morning of stress test as she forgot. Referred By: Godwin Ferrera Electronically Signed By: Reggie Munoz
== END ==
LOC: HO.CARD 09:18
PROVIDERS: PCP Nurse Practitioner Family; Visit Provider Internal Medicine
DX: Z01.810 Encounter for preprocedural cardiovascular examination (principal)
CPT/HCPCS: 78452; 93017; A9500; J0280; J2785

== ENCOUNTER → 2024-12-23 11:52 | Outpatient (BNV) | payer OTHER, SELFPAY | PROVIDERS: PCP Nurse Practitioner Family | DX: R06.02 Shortness of breath (principal); I10 Essential (primary) hypertension | CPT/HCPCS: 78452; 93016; 93018 ==

== ENCOUNTER 2024-12-24 10:31 | Outpatient (AMB) | payer OTHER, SELFPAY ==
[2024-12-24 10:32] VITALS: BP 150/80; PULSE 71; TEMP 36.9; O2SAT 100; BMI 27.5
--- NOTE | 2024-12-24 10:32 | A.OFFPC_ITS ---
Vital Signs 12/24/24 10:32 12/24/24 11:31 Height 5 ft 8 in Weight 181 lb BMI 27.5 BP 150/80 H 136/82 Blood Pressure Location Lt brachial Rt brachial Position Sitting Sitting Pulse 71 Pulse Source Pulse Oximeter Temp 98.5 F Temp Source Oral Pulse Oximetry (%) 100 Intake Visit Reasons: 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 Accompanied by: Self / Same As Patient Allergies cat dander (CATS) Allergy (Severe, Verified 12/24/24 11:31) SHORTNESS OF BREATH Medication List - Last Reconciled 12/24/24 by EMMA Carr- aspirin (Adult Aspirin Regimen) 81 mg PO DAILY atorvastatin 20 mg PO BEDTIME betamethasone valerate 0.1% 1 appl topical BID PRN 14 days cholecalciferol (vitamin D3) 50 mcg PO DAILY 90 days gabapentin 300 mg PO QPM losartan-hydrochlorothiazide 50-12.5 mg 1 tab PO DAILY 90 days nicotine (Nicoderm CQ) 1 patch transdermal DAILY nicotine (polacrilex) 2 mg buccal Q2H omeprazole 10 mg PO DAILY PRN Tobacco use date assessed: 12/24/24 Dental Screening Dental Screen Date: 12/24/24 Did you have a dental visit in the last 12 months?: No Did you have a dental problem in the last 6 months where you did not have access to dental care?: No Was dental information given to patient?: Patient declined HPI [facility] ER, foot infection HPI Details Chief Complaint The patient presents with a blister and drainage on her left foot. History of Present Illness The patient is a 54-year-old female presenting with a blister and drainage on her left foot. She has a history of eczema and peripheral vascular disease, contributing to chronic foot pain. The patient follows up with vascular surgery regularly. The current issue began with redness and pain on the plantar aspect of her left foot, persisting for several weeks before this visit. She was seen in the emergency department on December 04, where an X-ray of her foot was negative, but mild leukocytosis was noted. Vascular surgery was consulted and recommended outpatient follow-up. The patient reported drainage from the foot, prompting her visit to the emergency department. She was started on doxycycline and wound care was provided. The patient reports improvement in pain, although some discomfort persists. She is scheduled for a vascular procedure on her left lower extremity next week due to occlusion, and she has a weak posterior tibial pulse. The foot is healing better than before, with surface ulceration now healing and no active open areas noted. She denies any fevers or chills. The patient has a history of tobacco use and is now willing to quit smoking. She has been provided with nicotine patches and gum, and educated on the cessation process. Social History - Tobacco use: Patient is willing to clarisa t smoking and has been provided with nicotine patches and gum. Health Maintenance - Smoking cessation: Patient has been pr ovided with nicotine patches and gum and educated on the process. Review of Systems - Dermatological: Reports redness and pe eling skin on the left foot. Denies any active open areas. - Constitutional: Denies fevers or chill s. - Musculoskeletal: Reports chronic foot pain. Physical Exam General: Cooperative, healthy appearing, comfortable, no acute distress and well developed Orientation: Patient oriented x3 Limitations: No limitations Head: Normal to inspection Ears: Hearing grossly normal bilaterally Nose: Normal external nose present Face and sinus: Normal facial exam Eyes: Appearance normal, both eyes and all related structures Neck: Normal visual inspection and Yes full ROM Respiratory: Normal respiratory effort and able to speak in complete sentences. Clear/dim to auscultation bilaterally Cardiovascular: Regular rate and rhythm. Normal S1 and S2, faint systolic GI: Normal to inspection. Soft to palpation and nontender Skin: Skin peeling and noted on the left foot, with dry skin peeling on both sides of the plantar aspect. No active open areas noted. Neuro: Patient oriented x3 Extremities: Healed surface ulceration noted. Weak DP on the left lower extremity. Results - Labs: Mild leukocytosis noted. - Imaging: X-ray of the left foot was ne gative. Plan healing well with no active open areas noted. She has completed her course of doxycycline and reports improvement in pain, though some discomfort persists. A vascular procedure is scheduled for next week to address the occlusion/stenosis in her left lower extremity, and she will be cleared by cardiology prior to the procedure. The patient is encouraged to quit smoking, and she has been provided with nicotine patches and gum to assist with cessation. She has been educated on the process and the importance of smoking cessation for her vascular health. Discussion Notes I discussed with the patient the importance of continuing wound care for her left foot ulceration, which is showing signs of healing. We reviewed her recent completion of doxycycline and the improvement in her symptoms, although some discomfort remains. I explained the upcoming vascular procedure and the need for cardiology clearance beforehand. Additionally, I emphasized the benefits of smoking cessation for her vascular health and provided her with nicotine patches and gum, along with education on the cessation process. Patient Instructions - Continue wound care for your left foot as instructed. - Monitor for any signs of infection, moreno ch as increased redness or drainage, and seek medical attention if they occur. - Attend your scheduled vascular procedu re next week and ensure cardiology clearance is obtained beforehand. - Use the nicotine patches and gum provi ded to help quit smoking, and follow the cessation plan discussed. [facility] Medical History Plantar fasciitis Arthritis History of ETOH abuse Nicotine dependence, cigarettes, uncomplicated GERD (gastroesophageal reflux disease) Hyperlipidemia Hypertension Vitamin D deficiency PAD (peripheral artery disease) AAA (abdominal aortic aneurysm) without rupture Surgical History S/P aortogram History of repair of anterior cruciate ligament of left knee Family History Father Emphysema lung Mother No problems noted. Social History Housing: House Housing Other:: first floor of two family home Are you a primary primary care physician to a significant other at home: No Do you presently have visiting nurse or other home services: No Comment: advised of trip hazard Patient Tobacco Use Status: Current everyday Tobacco user Tobacco use type: Cigarette Cigarettes Per Day: 15 Years Smoked: 30 Cognitive needs: No Hearing needs: No Vision needs: Yes Questionnaire Thrive Questionnaire Date Thrive assessed: 12/24/24 I am a: Patient What is your living situation today?: I have a steady place to live Within the past 12 months, did the food you bought not last and you didn't have the money to get more?: Never true Within the past 12 months, did you worry whether your food would run out before you got money to buy more?: Never true Do you have trouble paying for medicines?: No Do you have trouble getting transportation to medical appointments?: No Do you have trouble paying your heating and electricity bill?: No Do you have trouble taking care of your child, family member or friend?: No Do you have trouble with day-to-day activities such as bathing, preparing meals, shopping, managing finances, etc.?: Yes Are you currently unemployed and looking for a job?: No Are you interested in more education?: No Please select the resources that you would like help with: None Currently or been in a relationship where the following occur: No concerns reported THRIVE Score: 0 AUDIT C Alcohol Use Questionnaire (AUDIT-C) 1. How often do you have a drink containing alcohol?: 2-3 times a week 2. How many drinks containing alcohol do you have on a typical day when you are drinking?: 3 or 4 3. How often do you have six or more drinks on one occasion?: Less than monthly Total Score: 5 Score Reviewed/Action Taken: Yes CASIMIRO-7 AMB Questionnaire CASIMIRO-7 Date CASIMIRO - 7 assessed: 12/24/24 Source: Developed by Drs. Ap Mayo, Linda Mantilla, David Melton and colleagues, with an educational nora from [employer]. Physical exam (Primary Care) Vital Signs: Last Vital Signs Temp 98.5 F 12/24/24 10:32 Pulse 71 12/24/24 10:32 BP 150/80 H 12/24/24 10:32 Pulse Ox 100 12/24/24 10:32 BMI result Body Mass Index 27.5 Tobacco/Smoking Status: Tobacco use Status Tobacco use date assessed 12/24/24 12/24/24 10:33 Patient Tobacco Use Status Current everyday Tobacco 12/24/24 10:33 Tobacco use type Cigarette 12/24/24 10:33 Thrive Assessment: Date of Thrive Assessment Date Thrive assessed 12/24/24 12/24/24 10:40 Currently or been in a relationship where the following occur: No concerns reported Coding Level of Care Code Est Pt Level 4 (72611) Diagnoses PAD (peripheral artery disease) I73.9 Foot ulceration L97.509 Nicotine dependence, cigarettes, uncomplicated F17.210 Assessment & Plan Assessment & Plan (1) PAD (peripheral artery disease): Comment: 12/02/2024 - diagnostic angiogram Code(s): I73.9 - Peripheral vascular disease, unspecified Category: Medical (2) Foot ulceration: Code(s): L97.509 - Non-pressure chronic ulcer of other part of unspecified foot with unspecified severity Category: Medical (3) Nicotine dependence, cigarettes, uncomplicated: Code(s): F17.210 - Nicotine dependence, cigarettes, uncomplicated Category: Medical Plan . Medications: New nicotine (polacrilex) 2 mg buccal Q2H 100 ea 1RF nicotine (Nicoderm CQ) take the patch off before bed please 1 patch transdermal DAILY 28 ea 0RF
[2024-12-24 11:31] VITALS: BP 136/82
== END 2024-12-24 11:58 | disposition home or self-care (01) ==
LOC: HO.HMCC 10:32
PROVIDERS: PCP Nurse Practitioner Family; Visit Provider Nurse Practitioner Family
DX: I73.9 Peripheral vascular disease, unspecified (principal); L97.509 Non-pressure chronic ulcer of other part of unspecified foot with unspecified severity; F17.210 Nicotine dependence, cigarettes, uncomplicated

== ENCOUNTER → 2024-12-24 10:31 | Outpatient (BNVA) | payer OTHER, SELFPAY | PROVIDERS: PCP Nurse Practitioner Family; Visit Provider Nurse Practitioner Family | DX: F17.210 Nicotine dependence, cigarettes, uncomplicated (principal); L97.529 Non-pressure chronic ulcer of other part of left foot with unspecified severity; I73.9 Peripheral vascular disease, unspecified | CPT/HCPCS: 99212 ==

== ENCOUNTER → 2024-12-29 10:06 | Outpatient (BNV) | payer OTHER, SELFPAY | PROVIDERS: PCP Nurse Practitioner Family; Visit Provider Internal Medicine | DX: I42.2 Other hypertrophic cardiomyopathy (principal); I51.89 Other ill-defined heart diseases | CPT/HCPCS: 93306 ==

== ENCOUNTER → 2024-12-29 10:06 | Outpatient (REF) | payer OTHER, SELFPAY ==
--- NOTE | 2024-12-29 10:06 | CA_ITS ---
Transthoracic Echocardiogram Patient (Last, First, Middle): Althea Crow A Gender: Female Date of : 1970 Age: 54 Procedure Date: 12/29/2024 Procedure Type: Transthoracic Echocardiogram Location: OP Height: 172.72 cm Weight: 83.46 kg BSA: 1.97 m2 Heart Rate: 55 bpm BP: 134 / 82 mmHg Archives Specialist: TO Referring MD: Godwin Ferrera MD Symptoms: Z01.810 - Encounter for preprocedural cardiovascular examination Study Quality: Adequate ECG Rhythm: Bradycardia Conclusions: - The left ventricular systolic function is normal. The calculated ejection fraction is 60% by biplane method. - The mid inferoseptal segment is hypokinetic. - No obvious valvular pathology seen on this study. Findings Left Ventricle Normal left ventricular cavity size. The left ventricular systolic function is normal. The calculated ejection fraction is 60% by biplane method. Evidence suggests grade I (mild) diastolic dysfunction. There is mild septal asymmetric hypertrophy. Wall Motion Rest Echo Findings The mid inferoseptal segment is hypokinetic. Right Ventricle Normal right ventricular cavity size and systolic function. Atria Both atria are normal in size. Aortic Valve There is a normal trileaflet aortic valve. There is no aortic valve stenosis. There is trace (trivial) aortic valve regurgitation. Mitral Valve The mitral valve appears normal. There is no mitral valve regurgitation. There is no mitral valve stenosis. Pulmonic Valve The pulmonic valve is likely normal. Tricuspid Valve There is trace tricuspid valve regurgitation. There is no evidence of pulmonary hypertension. Great Vessels There is mild dilatation of the ascending aorta measuring 3.80 cm. Venous The inferior vena cava is normal in size and collapses greater than 50% with inspiration. Pericardium/Pleural There is a trivial pericardial effusion. Prior Study Comparison No prior study available for comparison. Recommendations, Care & Conclusions No obvious valvular pathology seen on this study. Measurements 2D Linear Measurements IVSd: 1.12 0.6-0.9/0.6-1.0 cm LVIDd: 5.06 3.9-5.3/4.2-5.9 cm LVIDd Index: 2.57 2.4-3.2/2.2-3.1 cm/m2 LVIDs: 3.29 2.0-3.6 cm LVPWd: 0.88 0.7-1.1 cm LA Diam: 3.60 2.7-3.8/3.0-4.0 cm LAIDs Index: 1.83 1.5-2.3 cm/m2 LV Mass: 230.77 67-162/88-224 g LV Mass Index: 117.14 43-95/49-115 g/m2 LVOT Diam: 2.20 3.0+(-)1.3 cm 2D Systolic Function EF 4C: 56.30 >55% EF 2C: 63.30 >55% EF BiP: 60.00 >55% Mitral Valve MV Pk E: 0.50 MV PK A: 0.44 MV Decel Time: 223.00 E/A: 1.10 E'Lateral: 5.66 E'Medial: 4.35 E/E' Med: 11.50 E/E' Lat: 8.90 PHT: 65.00 MVA PHT: 3.38 Decel [place]: 2.25 Aortic Valve AoV Pk [place]: 1.59 AoV Mn [place]: 1.07 AoV VTI: 0.33 AoV Pk Grad: 10.00 Aov Mn Grad: 5.00 CARMEN Cont.VTI: 2.47 LVOT LVOT Pk [place]: 1.11 LVOT Mn [place]: 0.66 LVOT VTI: 0.22 LVOT Pk Grad: 5.00 LVOT Mn Grad: 2.00 LVOT Diam: 2.20 LVOT Area: 3.80 Diastolic Function MV Pk E: 0.50 MV Pk A: 0.44 E/A: 1.10 E'Medial: 4.35 E/E' Med: 11.50 E' Laterial: 5.66 E/E' Lat: 8.90 Right Ventricle TAPSE (mm): 24.40 TVS' [place]: 11.20 Tricuspid Valve RA Press: 3.00 Great Vessels Aorta Sinus of Valsalva: 3.61 2.0-3.5 cm Ao Asc: 3.80 2.1-3.4 cm Updated in Other Vendor System with Status of Final Godwin Ferrera MD electronically signed on 12/30/2024 9:08:26 AM with status of Final
== END ==
LOC: HO.CARD 10:06
PROVIDERS: PCP Nurse Practitioner Family; Visit Provider Internal Medicine
DX: Z01.810 Encounter for preprocedural cardiovascular examination (principal)
CPT/HCPCS: 93306

== ENCOUNTER 2025-01-05 11:13 | Outpatient (AMB) | payer OTHER, SELFPAY ==
[2025-01-05 11:15] VITALS: BP 138/88; PULSE 66; O2SAT 97; BMI 28.0
--- NOTE | 2025-01-05 11:15 | A.OFFPC_ITS ---
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 History of Present Illness The patient is a 54-year-old female presenting with peripheral arterial disease management and preparation for cardiac catheterization. She was scheduled for an arterial operation for peripheral arterial disease affecting her left lower extremity, which was canceled due to a positive stress test. She is experiencing discomfort in both her left and right lower extremities. The patient continues to smoke, despite being advised to quit. Nicotine patches and gum have been prescribed to aid in smoking cessation, but she has not yet picked them up due to financial constraints. Smoking cessation is emphasized as a primary goal for her health improvement. Social History - Tobacco use: The patient continues to smoke and has been provided with nicotine patches and gum to assist with cessation. Health Maintenance - Smoking cessation support with nicotin e patches and gum has been discussed as a preventative measure. Review of Systems - Cardiovascular: Reports discomfort in left and right lower extremities. Physical Exam General: Cooperative, healthy appearing, comfortable, no acute distress and well developed Orientation: Patient oriented x3 Limitations: No limitations Head: Normal to inspection Ears: Hearing grossly normal bilaterally Nose: Normal external nose present Face and sinus: Normal facial exam Eyes: Appearance normal, both eyes and all related structures Neck: Normal visual inspection and Yes full ROM Respiratory: Diminished bilaterally Cardiovascular: Regular rate and rhythm. S1 and S2, faint systolic GI: Normal to inspection. Soft to palpation and nontender Skin: plantar left foot with skin peeling to medial and lateral sides. no open lesions noted. Neuro: Patient oriented x3 Extremities: Discomfort in left lower extremity and right lower extremity Results - Tests: Positive stress test noted, car diac catheterization scheduled. Plan The patient is scheduled for a cardiac catheterization on the of this month due to a positive stress test, which led to the cancellation of her arterial operation for peripheral arterial disease. Following the cardiac catheterization, she will be referred back to vascular surgery for the arterial operation. Smoking cessation is a critical component of her health plan, with nicotine patches and gum prescribed to assist her in quitting smoking. 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 Discussion Notes I discussed with the patient the importance of proceeding with the cardiac catheterization to assess her cardiovascular status following the positive stress test. We also talked about the subsequent need for the arterial operation for her peripheral arterial disease. I emphasized the critical nature of smoking cessation for her overall health and provided her with nicotine patches and gum to aid in this process. Patient Instructions - Attend the scheduled cardiac catheteri zation on the of this month. - superintendent maintenance and use the prescribed nicotin e patches and gum to help quit smoking. - Follow up with vascular surgery after the cardiac catheterization for further management of peripheral arterial disease. [facility] Medical History Plantar fasciitis Arthritis History of ETOH abuse Nicotine dependence, cigarettes, uncomplicated GERD (gastroesophageal reflux disease) Hyperlipidemia Hypertension Vitamin D deficiency PAD (peripheral artery disease) AAA (abdominal aortic aneurysm) without rupture Surgical History S/P aortogram History of repair of anterior cruciate ligament of left knee Family History Father Emphysema lung Mother No problems noted. Social History Housing: House Housing Other:: first floor of two family home Are you a primary aged or disabled care worker to a significant other at home: No Do you presently have visiting nurse or other home services: No Comment: advised of trip hazard Patient Tobacco Use Status: Current everyday Tobacco user Tobacco use type: Cigarette Cigarettes Per Day: 15 Years Smoked: 30 Cognitive needs: No Hearing needs: No Vision needs: Yes Questionnaire PHQ-9 Over the last 2 weeks, how often have you been bothered by any of the following problems? 1. Little interest or pleasure in doing things: nearly every day 2. Feeling down, depressed, or hopeless: not at all 3. Trouble falling or staying asleep, or sleeping too much: several days 4. Feeling tired or having little energy: nearly every day 5. Poor appetite or overeating: not at all 6. Feeling bad about yourself - or that you are a failure or have let yourself or your family down: not at all 7. Trouble concentrating on things, such as reading the newspaper or watching television: not at all 8. Moving or speaking so slowly that other people could have noticed. Or the opposite - being so fidgety or restless that you have been moving around a lot more than usual: not at all 9. Thoughts that you would be better off or of hurting yourself in some way: not at all Total score: 7 Depression Screening Interpretation: Negative Depression Screening Done: Yes 50398 - PHQ-9 Billing: Yes Source: Developed by Drs. Ap Mayo, Linda Mantilla, David Melton and colleagues, with an educational nora from [employer]. Thrive Questionnaire Date Thrive assessed: 01/05/25 I am a: Patient What is your living situation today?: I have a steady place to live Within the past 12 months, did the food you bought not last and you didn't have the money to get more?: Never true Within the past 12 months, did you worry whether your food would run out before you got money to buy more?: Never true Do you have trouble paying for medicines?: No Do you have trouble getting transportation to medical appointments?: No Do you have trouble paying your heating and electricity bill?: No Do you have trouble taking care of your child, family member or friend?: No Do you have trouble with day-to-day activities such as bathing, preparing meals, shopping, managing finances, etc.?: Yes Are you currently unemployed and looking for a job?: No Are you interested in more education?: No Please select the resources that you would like help with: None Currently or been in a relationship where the following occur: No concerns reported THRIVE Score: 0 AUDIT C Alcohol Use Questionnaire (AUDIT-C) 1. How often do you have a drink containing alcohol?: 2-3 times a week 2. How many drinks containing alcohol do you have on a typical day when you are drinking?: 3 or 4 3. How often do you have six or more drinks on one occasion?: Less than monthly Total Score: 5 Score Reviewed/Action Taken: Yes CASIMIRO-7 AMB Questionnaire CASIMIRO-7 Date CASIMIRO - 7 assessed: 01/05/25 Feeling nervous, anxious, or on edge: 0 = Not at all Not being able to stop or control worryin = Not at all Worrying too much about different things: 1 = Several days Trouble relaxin = Several days Being so restless that it is hard to sit still: 0 = Not at all Becoming easily annoyed or irritable: 1 = Several days Feeling afraid as if something awful might happen: 0 = Not at all Total CASIMIRO-7 score (0-4 normal; 5-9 mild; 10-14 moderate; 15-21 severe): 3 Source: Developed by Drs. Ap Mayo, Linda Mantilla, David Melton and colleagues, with an educational nora from [employer]. CASIMIRO-7 Assessment Billing CASIMIRO-7 Assessment Tool: CASIMIRO-7 Assessment 32146 Physical exam (Primary Care) Vital Signs: Last Vital Signs Pulse 66 01/05/25 11:15 BP 138/88 01/05/25 11:15 Pulse Ox 97 01/05/25 11:15 Oxygen Delivery Method Room Air 01/05/25 11:15 BMI result Body Mass Index 28.0 Tobacco/Smoking Status: Tobacco use Status Tobacco use date assessed 12/24/24 01/05/25 11:19 Patient Tobacco Use Status Current everyday Tobacco 01/05/25 11:19 Tobacco use type Cigarette 01/05/25 11:19 PHQ-9: PHQ-9 Score PHQ-9: Total score 7 01/05/25 11:19 Depression Screening Interpretation: Negative Thrive Assessment: Date of Thrive Assessment Date Thrive assessed 01/05/25 01/05/25 11:19 Currently or been in a relationship where the following occur: No concerns reported Coding Level of Care Code Est Pt Level 3 (06745) Diagnoses PAD (peripheral artery disease) I73.9 Abnormal stress test R94.39 Additional Codes CASIMIRO-7 Assessment Billing - CASIMIRO-7 Assessment Tool: CASIMIRO-7 Assessment 60218 ([id number]) PHQ-9 - 69559 - PHQ-9 Billing: Yes ([id number]) Assessment & Plan Assessment & Plan (1) PAD (peripheral artery disease): Comment: 12/02/2024 - diagnostic angiogram Code(s): I73.9 - Peripheral vascular disease, unspecified Category: Medical (2) Abnormal stress test: Code(s): R94.39 - Abnormal result of other cardiovascular function study Category: Medical Plan .
== END 2025-01-05 12:23 | disposition home or self-care (01) ==
LOC: HO.HMCC 11:13
PROVIDERS: PCP Nurse Practitioner Family; Visit Provider Nurse Practitioner Family
DX: I73.9 Peripheral vascular disease, unspecified (principal); R94.39 Abnormal result of other cardiovascular function study

== ENCOUNTER → 2025-01-05 11:13 | Outpatient (BNVA) | payer OTHER, SELFPAY | PROVIDERS: PCP Nurse Practitioner Family; Visit Provider Nurse Practitioner Family | DX: K21.9 Gastro-esophageal reflux disease without esophagitis (principal); I73.9 Peripheral vascular disease, unspecified; R94.39 Abnormal result of other cardiovascular function study | CPT/HCPCS: 96127; 99212 ==

== ENCOUNTER → 2025-01-14 23:59 | Outpatient (BNV) | payer OTHER, SELFPAY | PROVIDERS: PCP Nurse Practitioner Family; Visit Provider Internal Medicine Cardiovascular Disease | DX: R93.1 Abnormal findings on diagnostic imaging of heart and coronary circulation (principal) | CPT/HCPCS: 93458; 99152 ==

== ENCOUNTER 2025-01-28 12:54 | Outpatient (AMB) | payer OTHER, SELFPAY ==
--- OUTSIDE RECORDS SUMMARY | 2025-01-28 13:06 | XMS_ITS | Clinical Summary ---
Author Organization 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 90 tablet 3 0 Active lidocaine (LIDODERM) 5 % Place 1 patch onto the skin daily. Remove & Discard patch within 12 hours or as directed by MD 30 patch 5 0 Active omeprazole (PRILOSEC) 20 MG capsule Take 20 mg by mouth daily. PRN Active losartan (COZAAR) 25 MG tabletIndications :Essential hypertension Take 1 tablet (25 mg total) by mouth daily. 30 tablet 2 Active nicotine polacrilex (COMMIT) 2 MG lozengeIndication s:Tobacco use disorder Place 1 lozenge (2 mg total) inside cheek every 30 (thirty) minutes as needed for smoking cessation (max 20 pieces per day). 144 lozenge 6 2 Active Active Problems Problem Noted Date Diagnosed Date Essential hypertension 07/10/2021 Assessment & Plan (07/10/2021 7:31 PM EST): New problem: Recommend low salt diet, limit alcohol intake by 50%, no more than 10 drinks a week, limit take out meals. Start on losartan, side effects discussed. Check labs, follow up with PCP for BP check in 4 weeks. Gastrocnemius equinus of right lower extremity 0 09/06/2020 Gastrocnemius equinus of left lower extremity Plantar fasciitis 09/06/2020 Equinus deformity of both feet 09/06/2020 Difficulty walking due to ankle and foot joint 0 09/06/2020 Axillary adenopathy 06/21/2020 Assessment & Plan (06/21/2020 1:25 PM EST): Left sided supraclavicular fullness and palpable adenopathy of the left axilla. Breast exam is unremarkable. She has not previously had mammogram. She has about a 10 year pack history of cigarette use. -order for diagnostic mammogram and axillary ultrasound sent to [facility] (pt preference) -discussed will likely need follow up with general surgery. Chronic midline low back pain without sciatica 1 08/22/2019 Assessment & Plan (06/21/2020 1:25 PM EST): Straightening of the normal lordosis could suggest spasm but will obtain XR to evaluate further given persistence of pain. Elevated lipoprotein(a) 06/21/2020 Assessment & Plan (07/10/2021 7:32 PM EST): Tolerating atorvastatin, due for recheck of lipids on statin, check with next set of labs, follow up with PCP. Assessment & Plan (06/21/2020 1:28 PM EST): Discussed elevated risk for ASCVD and starting statin therapy. Reviewed potential SE of medication. -start lipitor 20mg daily. Recheck labs in 3 months Encounter for routine adult health examination with abnormal findings 05/24/2020 Assessment & Plan (05/24/2020 11:07 AM EST): Pap: due. Will schedule follow up in the next few weeks for pap smear Mammogram: she is considering. Will discuss in detail at follow up in a few weeks Labs: cbc/cmp/lipids/a1c ordered Immunizations: declines tetanus, flu and penumonia vaccines. Counseling provided Plan to follow up several times over the next few months to get her utd on health maintenance Bilateral foot pain 05/24/2020 Assessment & Plan (06/21/2020 1:27 PM EST): Seems as if she is having two separate ongoing issues. Feel she is still having some component of neuropathy (DM screen negative, XR lumbar spine ordered) but other pain seems more c/w plantar fasciitis -will place referral to podiatry -trial of voltaren topically -discussed gabapentin as an option for neuropathy but would like to have consult with podiatry first Assessment & Plan (05/24/2020 11:09 AM EST): Likely plantar fasciitis. Discussed importance of warming feet up by stretching in the morning or after sitting for prolonged period of time, wearing appropriate foot wear, trying to do daily foot exercises. Will send some in the portal. Discussed possibility of referring to podiatry if pain continues and she agrees. Will touch base at follow up in a few weeks Allergic dermatitis 09/30/2019 Assessment & Plan (09/30/2019 5:26 PM EDT): Most likely she had an allergic reaction to a component of the detergent that she use. Lesions do look like they are slowly improving but she still has a significant amount of dermatitis. I will give her a short course of prednisone which should help. I like her to continue using moisturizer cream and if needed the hydrocortisone cream. If things improve but do not resolve I told her she can call me can give her a prescription for some triamcinolone cream to help get rid of any residual. Tobacco use disorder 09/30/2019 Assessment & Plan (07/10/2021 7:33 PM EST): Tobacco Cessation Counseling Tobacco cessation counseling was provided for this current tobacco user totaling more than 10 minutes in addition to other services. I advised the patient to quit, and offered support. She indicated a readiness to attempt to quit. Smoking cessation counseling was provided. The patient was referred to a smoking cessation support program. Pharmacotherapy was prescribed as ordered. Assessment & Plan (05/24/2020 11:08 AM EST): Spent 10 minutes reviewing reasons to quit and methods. She is interested but isn't feeling ready to quit at this time. Reviewed several behavioral options and medication aids if/when she is ready. Will continue to assess readiness at follow up Assessment & Plan (09/30/2019 5:28 PM EDT): I briefly encouraged her to quit smoking. Immunizations No known immunizations Family History Medical History Relation Comments Emphysema Father Breast cancer Mother Relation Status Comments Father (Age 77) Mother Alive Social History Tobacco Use Types Packs/Day Years Used Date Smoking Tobacco: Every Day Cigarettes 0.5 20 Smokeless Tobacco: Current Alcohol Use Standard Drinks/Week Comments Yes 0 (1 standard drink = 0.6 oz pur e alcohol) 2-4 drinks per night. Child or Family Care Answer Date Record ed Do you have problems with on e of the following making it difficult for you to work, study, or receive health care? No 07/10/2021 Education Answer Date Recorded Are you interested in more education? Not on ike e 07/11/2023 Are you concerned about learning? Not on file 07/11/2023 No 07/11/2023 No 07/11/2023 Food Answer Date Recorded Within the past 6 months we worried whether our food would run out before we got money to buy more. Never True 07/10/2021 Within the past 6 months the food we bought just didn't last and we didn't have enough money to get more. Never True Residential Stability Answer Date Recor ded What is your housing situation today? I have tio sing 07/10/2021 How many times have you move d in the past 12 months? Zero (I did not move) 07/10/2021 Paying for Meds Answer Date Recorded Do you have trouble paying for medicines? No 07/10/2021 Paying Utility Bills Answer Date Record ed Do you have trouble paying your heating or elect ricity bill? No 07/10/2021 Transportation Answer Date Recorded Has the lack of transportati on kept you from medical appointments or from getting medications? No 07/10/2021 Unemployment Answer Date Recorded Are you currently unemployed or working on a part-time or temporary basis, and looking for work? No 07/10/2021 Digital Access Answer Date Recorded No 12/01/2022 No 12/01/2022 No 12/01/2022 Reliable internet access at home? Not on file 12/01/2022 Device with a working camera? Not on file Comments Unknown Sex and Gender Information Value Date Recorded Sex Assigned at Female 09/05/2020 3:24 PM EST Legal Sex Female 2:59 PM EST Gender Identity Female 09/05/2020 3:24 PM EST Sexual Orientation Not on file Occupation Industry Job Start Date Job End Date [employer] Not on file Not on file Not on file Last Filed Vital Signs Vital Sign Reading Time Taken Comments Blood Pressure 150/98 07/10/2021 12:43 PM EST Pulse 73 07/10/2021 12:43 PM EST Temperature 36.9 C (98.5 F) 07/10/2021 12:43 PM EST Respiratory Rate - - Oxygen Saturation 98% 07/10/2021 12:43 PM EST Inhaled Oxygen Concentration - - Weight 88.6 kg (195 lb 6.4 oz) 07/10/2021 12:43 PM EST Height 175.3 cm (5' 9 ) 07/10/2021 12:43 PM EST Body Mass Index 28.86 07/10/2021 12:43 PM EST Plan of Treatment Health Maintenance Due Date Last Done Comments Adult Td,Tdap Booster 1971 BLOOD PRESSURE 1971 POTASSIUM LEVEL 1971 SMOKING Hx and SMOKELESS TOBACCO SCREENING 1984 HEPATITIS C SCREENING 1989 HIV ONE-TIME SCREENING (18-6 5 YEARS) 1989 PNEUMOCOCCAL VACCINES (50+ years) (1 of 2 - PCV) 1990 MAMMOGRAM 2011 COLOGUARD 2016 COLONOSCOPY 2016 COLORECTAL CANCER SCREENING 2016 FIT TEST 2016 FOBT 2016 SIGMOIDOSCOPY 2016 VIRTUAL COLONOSCOPY 2016 CREATININE LEVEL 05/27/2021 05/27/2020 ZOSTER VACCINES (1 of 2) 2021 DEPRESSION SCREENING 07/10/2022 07/10/2021 COVID-19 VACCINE (4 - 2023-2 5 season) 2024 06/03/2021, 11/23/2020, 10/31/2020 LIPID PANEL 05/27/2025 05/27/2020 PAP SMEAR 06/21/2025 06/21/2020 HEPATITIS A VACCINES Aged Out No long er eligible based on patient's age to complete this topic HIB VACCINES Aged Out No longer eligi ble based on patient's age to complete this topic MENINGOCOCCAL VACCINES (ACWY) Aged Out No longer eligible based on patient's age to complete this topic MENINGOCOCCAL VACCINES (B) Aged Out N o longer eligible based on patient's age to complete this topic Medical Devices Not on file Procedures Procedure Name Priority Date/Time Associated Diagnosis Comments PAP TEST Routine 06/21/2020 12:00 AM EST COMPREHENSIVE METABOLIC PANEL Routine 05/27/2020 from Last 3 Months or Most Recently Relevant to Health Maintenance Results * Pap Smear (06/21/2020 12:00 AM EST) 06/21/2020 06/22/2020 8:4 8 AM EST Narrative SEE NARRATIVE - 06/27/2020 9:41 [place] [address] Financial Dealers: Haily Leigh MD TELEPHONIC NURSE CASE MANAGER Cytology Report FINAL DIAGNOSIS A. PAP SMEAR (SUREPATH) CE: SPECIMEN ADEQUACY: Satisfactory for evaluation; transformation zone absent/insufficient. INTERPRETATION: NEGATIVE FOR INTRAEPITHELIAL LESION OR MALIGNANCY. Electronically Signed Out By: NATHALY Burleson(ASCP) The Pap test is a screening test primarily for squamous cancers and precursors and has associated false-negative and false-positive results. New technologies such as liquid-based preparations may decrease but will not eliminate all false-negative results. Regular sampling and follow-up of unexplained clinical signs and symptoms are recommended to minimize false negative results. PROCEDURES/ADDENDA HPV Testing (Requested) Ordered Date: 06/22/2020 A. PAP SMEAR (SUREPATH) CE: Human Papilloma Virus Test Negative for high-risk human papillomavirus types 16, 18, 45 and the Other high risk probe set (Includes 31, 33, 35, 39, 51, 52, 56, 58, 59, 66, 68) by [facility] On[facility]arity HR-HPV analysis. Clinical correlation is advised. This HPV test was performed at [facility], [address] [place] [address]. This test has been FDA approved for SurePath cervical cytology specimens. The accuracy and precision of this test for all other specimen sources has been verified in the Cytopathology Laboratory of the [facility] and has not been cleared or approved by the U.S. Food and Drug Administration. Clinical correlation is advised. CLINICAL HISTORY Date of Last Menstrual Period: Not Provided Menstrual History: Unknown Other Clinical Conditions: Screening Pap SPECIMEN SOURCE A: PAP SMEAR (SUREPATH) CE Patient Name: KETURAH BUCHANAN : 1970 (Age: 49) Sex: F Institution: [facility] Location: [facility] Date of Collection: 06/21/2020 Date of Reported: 06/27/2020 09:41 Results to: Lili Agosto PA-C us Lili [facility] CYTOLOGY ORDERABLES F inal Result SEE NARRATIVE * Comprehensive metabolic panel (05/27/2020) us Lili [facility] LAB BLOOD ORDERABLES Edited Result - Final from Last 3 Months or Most Recently Relevant to Health Maintenance Insurance [facility] [place] [id number] [facility] Additional Source Comments The information contained in this document represents components of the legal health record. It is not the complete legal health record.[facility]
--- NOTE | 2025-01-28 13:25 | MHC.OFFVIS ---
Vital Signs 01/28/25 13:27 Height 5 ft 8 in Weight 179 lb 14.355 oz BMI 27.4 BP 130/82 Blood Pressure Location Lt brachial Position Sitting Pulse 76 Pulse Source Pulse Oximeter Intake Visit Reasons: Follow up post cardiac cath Intake Note: f/up-cath 01/14 Branch Account Executive Required: No Accompanied by: Self / Same As Patient Allergies cat dander (CATS) Allergy (Severe, Verified 01/05/25 11:15) SHORTNESS OF BREATH Medication List - Last Reconciled 01/28/25 by Reggie Munoz NP aspirin (Adult Aspirin Regimen) 81 mg PO DAILY atorvastatin 20 mg PO BEDTIME betamethasone valerate 0.1% 1 appl topical BID PRN 14 days cholecalciferol (vitamin D3) 50 mcg PO DAILY 90 days losartan-hydrochlorothiazide 50-12.5 mg 1 tab PO DAILY 90 days nicotine (Nicoderm CQ) 1 patch transdermal DAILY nicotine (polacrilex) 2 mg buccal Q2H omeprazole 10 mg PO DAILY PRN HPI Comments Details: This is a 54-year-old female patient coming in for a follow-up visit status post cardiac catheterization. Patient with a history of hypertension, hyperlipidemia, peripheral artery disease, AAA, and chronic smoker. Patient was previously seen for a risk stratification before vascular surgery and underwent an echo, and myocardial perfusion study. Following abnormal results from these, patient underwent a cardiac catheterization with Dr. Hernandez at [facility]. Today, patient is continuing to report feeling well overall without cardiac symptoms of exertional chest pain, shortness of breath, palpitations, dizziness, orthopnea, PND, leg edema, presyncope, or syncope. Patient states compliance with all her medications. Unfortunately, patient continues to smoke which was discussed heavily at today's visit for cessation. [facility] Medical History (Updated 01/28/25 @ 13:53 by Reggie Munoz NP) Plantar fasciitis Arthritis History of ETOH abuse Nicotine dependence, cigarettes, uncomplicated GERD (gastroesophageal reflux disease) Hyperlipidemia Hypertension Vitamin D deficiency PAD (peripheral artery disease) AAA (abdominal aortic aneurysm) without rupture Surgical History (Updated 01/28/25 @ 13:53 by Reggie Munoz NP) Hx of cardiac cath S/P aortogram History of repair of anterior cruciate ligament of left knee Family History Father Emphysema lung Mother No problems noted. Social History Housing: House Housing Other:: first floor of two family home Are you a primary youth care specialist to a significant other at home: No Do you presently have visiting nurse or other home services: No Comment: advised of trip hazard Patient Tobacco Use Status: Current everyday Tobacco user Tobacco use type: Cigarette Cigarettes Per Day: 15 Years Smoked: 30 Cognitive needs: No Hearing needs: No Vision needs: Yes Review of Systems Const Denies chills, Denies fatigue, Denies fever(s), Denies frequent falls, Denies weakness, Denies weight gain and Denies weight loss ENT Denies dizziness Card Denies chest pain, Denies leg edema, Denies lightheadedness, Denies palpitations, Denies dyspnea and Denies dyspnea on exertion Resp Denies cough, Denies dyspnea and Denies dyspnea on exertion GI Denies hematochezia Musc Denies abnormal gait, Denies muscle weakness, Denies numbness, Denies radiating pain into limb and Denies tingling Neuro Denies abnormal gait, Denies dizziness, Denies frequent falls, Denies numbness, Denies tingling and Denies weakness Endo Denies fatigue and Denies palpitations Physical Exam Vital Signs: Last Vital Signs Pulse 76 01/28/25 13:27 BP 130/82 01/28/25 13:27 BMI result Body Mass Index 27.4 Const General: cooperative, healthy appearing, comfortable and no acute distress Orientation/consciousness: patient oriented x3 HEENT Head: Yes normal to inspection Neck Neck: Yes normal visual inspection, Yes trachea midline and Yes supple Chest Chest palpation & inspection: normal inspection of the chest Resp Effort & Inspection: normal respiratory effort Auscultation: clear to auscultation bilaterally, no crackles, no rales, no rhonchi and no wheezes Cardio Jugular venous distension: no JVD Palpation: normal PMI Rate: regular rate Rhythm: regular rhythm Heart sounds: S1 normal heart sound present, S2 normal heart sound present, no click, no gallops, no murmurs and no rubs Peripheral pulses: Peripheral pulses 2+ throughout GI Inspection: Yes normal to inspection Palpation (GI): Soft to palpation Auscultation: normal bowel sounds Skin General skin exam: no rashes or lesions noted Neuro General: patient oriented x3 Extrem General: Yes normal to inspection, No no pedal edema and No calf tenderness Psych Appearance: grossly normal Mental Status: mental status grossly normal Speech and movement: Normal speech and movement present Assessment & Plan Assessment & Plan (1) Status post cardiac catheterization: Code(s): Z98.890 - Other specified postprocedural states Category: Surgical Plan: 12/23/2024-myocardial perfusion study showed distal anterior and anteroseptal ischemia with possible fixed defect in the basal inferior wall. 12/29/2024-echo study showed a normal LV systolic function with an ejection fraction at 60% with mild diastolic dysfunction, and hypokinetic mid inferoseptal segment. Given above findings, patient underwent cardiac catheterization with Dr. Hernandez on 01/14/2025 that showed no significant coronary artery disease. No further imaging indicated at this time. Continue aspirin and statin therapy. Advised aggressive management of vascular risk factors. Right wrist catheter insertion site is well healed. (2) Hyperlipidemia: Code(s): E78.5 - Hyperlipidemia, unspecified Category: Medical Plan: Patient's lipid profile from May of 2024 is elevated. Patient unaware if this was fasting or not. We will repeat a fasting lipid profile with a goal of LDL closer to 70s. Continue baby aspirin and atorvastatin therapy. Emphasized on need of smoking cessation to which patient verbalized understanding. (3) Hypertension: Code(s): I10 - Essential (primary) hypertension Category: Medical Plan: Blood pressure today is well-controlled. Continue current regimen. Advised monitoring blood pressures at home with a goal less than 130/80. (4) Preoperative cardiovascular examination: Code(s): Z01.810 - Encounter for preprocedural cardiovascular examination Category: Medical Plan: Patient can proceed with her upcoming left femoral arterial to popliteal bypass surgery with Dr. Senior with the consideration that patient is at an intermediate cardiac risk. Advised heart healthy diet, regular exercise, aggressive management of vascular risk factors, and complete smoking cessation. Follow up in the office in a year, sooner if needed. In the interim, patient will call the office with any concerns or change in symptoms. This note was generated using voice recognition software. While every effort has been made to ensure accuracy and proper operating theatre technician, there may be occasional errors that could affect the content or meaning of the described symptoms. Orders: Orders Lipid Panel Today E78.5 - Hyperlipidemia, unspecified Coding Level of Care Code Est Pt Level 4 (05443) Complex EM visit Add On G2211 Diagnoses Status post cardiac catheterization Z98.890 Hyperlipidemia E78.5 Hypertension I10 Preoperative cardiovascular examination Z01.810 Time Spent (min) 31 Comment Time spent in reviewing the chart, test results, assessment, counseling and documentation.
[2025-01-28 13:27] VITALS: BP 130/82; PULSE 76; BMI 27.4
== END 2025-01-28 13:51 | disposition home or self-care (01) ==
LOC: HO.HCS 12:55
PROVIDERS: PCP Nurse Practitioner Family
DX: Z98.890 Other specified postprocedural states (principal); E78.5 Hyperlipidemia, unspecified; I10 Essential (primary) hypertension; Z01.810 Encounter for preprocedural cardiovascular examination
CPT/HCPCS: 99214

== ENCOUNTER → 2025-01-28 12:54 | Outpatient (BNVA) | payer OTHER, SELFPAY | PROVIDERS: PCP Nurse Practitioner Family | DX: Z01.810 Encounter for preprocedural cardiovascular examination (principal); I10 Essential (primary) hypertension; I73.9 Peripheral vascular disease, unspecified; I71.40 Abdominal aortic aneurysm, without rupture, unspecified; E78.5 Hyperlipidemia, unspecified; F17.210 Nicotine dependence, cigarettes, uncomplicated; Z98.890 Other specified postprocedural states | CPT/HCPCS: 99212 ==

== ENCOUNTER 2025-03-01 14:52 | Outpatient (AMB) | payer OTHER, SELFPAY ==
--- NOTE | 2025-03-01 14:58 | A.OFFPC_ITS ---
Vital Signs 03/01/25 15:00 03/01/25 15:44 Weight 176 lb BP 126/98 H 128/82 Blood Pressure Location Lt brachial Rt brachial Position Sitting Respiration 16 Pulse 82 Pulse Source Pulse Oximeter Temp 98.2 F Temp Source Oral Pulse Oximetry (%) 98 Oxygen Delivery Method Room Air Intake Visit Reasons: ANNUAL PE Machine Washer Required: No Accompanied by: Self / Same As Patient Allergies cat dander (CATS) Allergy (Severe, Verified 03/01/25 15:01) SHORTNESS OF BREATH Medication List - Last Reconciled 03/01/25 by EMMA Carr- aspirin (Adult Aspirin Regimen) 81 mg PO DAILY atorvastatin 20 mg PO BEDTIME betamethasone valerate 0.1% 1 appl topical BID PRN 14 days cholecalciferol (vitamin D3) 50 mcg PO DAILY 90 days losartan-hydrochlorothiazide 50-12.5 mg 1 tab PO DAILY 90 days nicotine (Nicoderm CQ) 1 patch transdermal DAILY nicotine (polacrilex) 2 mg buccal Q2H omeprazole 10 mg PO DAILY PRN Tobacco use date assessed: 03/01/25 Dental Screening Dental Screen Date: 03/01/25 Did you have a dental visit in the last 12 months?: Yes Did you have a dental problem in the last 6 months where you did not have access to dental care?: No Was dental information given to patient?: Patient has dentist HPI ANNUAL PE HPI Details History of Present Illness The patient is a 54-year-old female presenting with a physical exam and preventative care measures. She is due for a mammogram, colon screening, and Pap smear. The patient has a history of vascular compromise with arterial insufficiency, which was identified following extensive cardiac testing, including catheterization, to clear her for an upcoming vascular procedure. She is scheduled for a left superficial femoral artery (SFA) occlusion repair and a left femoral to popliteal bypass due to the vascular issues. She also had a ulcer on her left plantar foot, which has been a concern due to the vascular compromise. Additionally, she experiences numbness and tingling in her left foot. The patient denies any current wounds on her feet and reports no chest pain or increased dyspnea. She is on blood pressure medication and has been advised to have her cholesterol levels checked, as she is on a statin. going for a LDCT in the near future, and plans to quit smoking 100% by the end of this month Health Maintenance - Mammogram due - Colon screening due - Pap smear due Social History Review of Systems - Cardiovascular: Denies chest pain, den ies increased dyspnea - Neurological: Reports numbness in the left foot denies any fevers, chills, abd pain, blood in stool, constipation, diarrhea, n/v Physical Exam General: Cooperative, healthy appearing, comfortable, no acute distress and well developed Orientation: Patient oriented x3 Limitations: No limitations Head: Normal to inspection Ears: Hearing grossly normal bilaterally Nose: Normal external nose present Face and sinus: Normal facial exam Eyes: Appearance normal, both eyes and all related structures Neck: Normal visual inspection and Yes full ROM Respiratory: Normal respiratory effort, Clear/dim to auscultation bilaterally Cardiovascular: Regular rate and rhythm. Normal S1 and S2 GI: Normal to inspection. Soft to palpation and nontender Skin: No rashes or lesions noted Neuro: Patient oriented x3 Extremities: Normal to inspection, but patient reports numbness and tendinitis in the left foot. No current wounds noted. 1. Vascular Compromise With Arterial Ins ufficiency The patient is scheduled for a left superficial femoral artery (SFA) occlusion repair and a left femoral to popliteal bypass due to identified vascular compromise. 2. Non-Healing Ulcer On Left Plantar Emery t The non-healing ulcer on the left plantar foot is being monitored in conjunction with the vascular procedure to address underlying arterial insufficiency. 3. Numbness And Tingling In Left Foot The patient reports numbness and tingling in the left foot, which is being evaluated in the context of her vascular issues. 4. Hypertension The patient is on blood pressure medication and is advised to continue monitoring her blood pressure regularly. 5. Hyperlipidemia The patient is on a statin, and she is encouraged to have her cholesterol levels checked soon. 6. Preventative Care The patient is due for a mammogram, colon screening, and Pap smear as part of her preventative care measures. Discussion Notes I discussed with the patient the importance of proceeding with the scheduled vascular procedure to address her arterial insufficiency. We also reviewed her current medications, including her statin dosage, and the need for regular monitoring of her blood pressure and cholesterol levels. I emphasized the importance of completing her preventative screenings, including a mammogram, colon screening, and Pap smear. Patient Instructions - Proceed with scheduled vascular proced ure. - Continue taking blood pressure medicat ion as prescribed. - Schedule and complete mammogram, colon screening, and Pap smear. - Monitor blood pressure and cholesterol levels regularly. [facility] Medical History Plantar fasciitis Arthritis History of ETOH abuse Nicotine dependence, cigarettes, uncomplicated GERD (gastroesophageal reflux disease) Hyperlipidemia Hypertension Vitamin D deficiency PAD (peripheral artery disease) AAA (abdominal aortic aneurysm) without rupture Surgical History Hx of cardiac cath S/P aortogram History of repair of anterior cruciate ligament of left knee Family History Father Emphysema lung Mother No problems noted. Social History Housing: House Housing Other:: first floor of two family home Are you a primary animal care attendant to a significant other at home: No Do you presently have visiting nurse or other home services: No Comment: advised of trip hazard Patient Tobacco Use Status: Current everyday Tobacco user Tobacco use type: Cigarette Cigarettes Per Day: 15 Years Smoked: 30 Cognitive needs: No Hearing needs: No Vision needs: Yes Questionnaire PHQ-9 Over the last 2 weeks, how often have you been bothered by any of the following problems? 1. Little interest or pleasure in doing things: nearly every day 2. Feeling down, depressed, or hopeless: not at all 3. Trouble falling or staying asleep, or sleeping too much: several days 4. Feeling tired or having little energy: nearly every day 5. Poor appetite or overeating: not at all 6. Feeling bad about yourself - or that you are a failure or have let yourself or your family down: not at all 7. Trouble concentrating on things, such as reading the newspaper or watching television: not at all 8. Moving or speaking so slowly that other people could have noticed. Or the opposite - being so fidgety or restless that you have been moving around a lot more than usual: not at all 9. Thoughts that you would be better off or of hurting yourself in some way: not at all Total score: 7 Depression Screening Interpretation: Negative (denies any fevers and chills) Depression Screening Done: Yes 66045 - PHQ-9 Billing: Yes Source: Developed by Drs. Ap Mayo, David Wilson and colleagues, with an educational nora from [employer]. Thrive Questionnaire Date Thrive assessed: 08/28/24 I am a: Patient What is your living situation today?: I have a steady place to live Within the past 12 months, did the food you bought not last and you didn't have the money to get more?: Never true Within the past 12 months, did you worry whether your food would run out before you got money to buy more?: Never true Do you have trouble paying for medicines?: No Do you have trouble getting transportation to medical appointments?: No Do you have trouble paying your heating and electricity bill?: No Do you have trouble taking care of your child, family member or friend?: No Do you have trouble with day-to-day activities such as bathing, preparing meals, shopping, managing finances, etc.?: Yes Are you currently unemployed and looking for a job?: No Are you interested in more education?: No Please select the resources that you would like help with: None Currently or been in a relationship where the following occur: No concerns reported THRIVE Score: 0 CASIMIRO-7 AMB Questionnaire CASIMIRO-7 Date CASIMIRO - 7 assessed: 03/01/25 Feeling nervous, anxious, or on edge: 0 = Not at all Not being able to stop or control worryin = Not at all Worrying too much about different things: 1 = Several days Trouble relaxin = Several days Being so restless that it is hard to sit still: 0 = Not at all Becoming easily annoyed or irritable: 1 = Several days Feeling afraid as if something awful might happen: 0 = Not at all Total CASIMIRO-7 score (0-4 normal; 5-9 mild; 10-14 moderate; 15-21 severe): 3 Source: Developed by Drs. Ap Mayo, David Wilson and colleagues, with an educational nora from [employer]. CASIMIRO-7 Assessment Billing CASIMIRO-7 Assessment Tool: CASIMIRO-7 Assessment 41882 Physical exam (Primary Care) Vital Signs: Last Vital Signs Temp 98.2 F 03/01/25 15:00 Pulse 82 03/01/25 15:00 Resp 16 03/01/25 15:00 BP 126/98 H 03/01/25 15:00 Pulse Ox 98 03/01/25 15:00 Oxygen Delivery Method Room Air 03/01/25 15:00 Tobacco/Smoking Status: Tobacco use Status Tobacco use date assessed 03/01/25 03/01/25 15:07 Patient Tobacco Use Status Current everyday Tobacco 03/01/25 14:59 Tobacco use type Cigarette 03/01/25 14:59 PHQ-9: PHQ-9 Score PHQ-9: Total score 7 03/01/25 15:27 Depression Screening Interpretation: Negative (denies any fevers and chills) Thrive Assessment: Date of Thrive Assessment Date Thrive assessed 08/28/24 03/01/25 14:59 Currently or been in a relationship where the following occur: No concerns reported Coding Level of Care Code Est Pt Prev Care 40-64y(19033) Diagnoses Vitamin D deficiency E55.9 Hyperlipidemia E78.5 Encounter for routine adult physical exam with abnormal findings Z. PAD (peripheral artery disease) I73.9 Additional Codes CASIMIRO-7 Assessment Billing - CASIMIRO-7 Assessment Tool: CASIMIRO-7 Assessment 35469 ([id number]) PHQ-9 - 99257 - PHQ-9 Billing: Yes ([id number]) Assessment & Plan Assessment & Plan (1) Vitamin D deficiency: Code(s): E55.9 - Vitamin D deficiency, unspecified Category: Medical (2) Hyperlipidemia: Code(s): E78.5 - Hyperlipidemia, unspecified Category: Medical (3) Encounter for routine adult physical exam with abnormal findings: Code(s): Z00. - Encounter for general adult medical examination with abnormal findings Category: Medical (4) PAD (peripheral artery disease): Comment: 12/02/2024 - diagnostic angiogram Code(s): I73.9 - Peripheral vascular disease, unspecified Category: Medical Plan . Orders: Orders Complete Blood Count Auto Diff Today Z00.01 - Encounter for general adult medical examination with abnormal findings Comprehensive [place]. Panel Fast Today Z00.01 - Encounter for general adult medical examination with abnormal findings TSH reflex Free T4 Today Z00.01 - Encounter for general adult medical examination with abnormal findings UA CC w/rflx Micro + Cult Today Z00.01 - Encounter for general adult medical examination with abnormal findings MM screening mammo BI Today Z12.31 - Encounter for screening mammogram for malignant neoplasm of breast Lipid Panel Today Z00.01 - Encounter for general adult medical examination with abnormal findings Vitamin D 25-OH Total Today E55.9 - Vitamin D deficiency, unspecified Referrals FLAKING ROLL OPERATOR Referral Z12.4 - Encounter for screening for malignant neoplasm of cervix Gastroenterology Referral Z12.11 - Encounter for screening for malignant neoplasm of colon
[2025-03-01 15:00] VITALS: BP 126/98; PULSE 82; RESP 16; TEMP 36.8; O2SAT 98
[2025-03-01 15:44] VITALS: BP 128/82
--- OUTSIDE RECORDS SUMMARY | 2025-03-01 16:36 | XMS_ITS | Clinical Summary ---
Author Organization [facility] Address [address] [place] [id number] Phone Care Team Providers Care Tower Hand Name Role Phone Unavailable Primary Care Provider [...] diagnostic mammogram and axillary ultrasound sent to [facility] (pt preference) -discussed will likely need follow [...] SEE NARRATIVE - 06/27/2020 9:41 [place] [address] Supervisor Costuming: Haily Leigh MD YOUTH DIRECTOR Cytology Report FINAL DIAGNOSIS A. PAP SMEAR [...] 52, 56, 58, 59, 66, 68) by [employer] Onclarity HR-HPV analysis. Clinical correlation is advised. This HPV test was performed at [facility], [address] [place] [address]. This test has been FDA approved for SurePath cervical cytology specimens. The accuracy and precision of this test for all other specimen sources has been verified in the Cytopathology Laboratory of the [facility] and has not been cleared or approved by the U.S. Food and Drug Administration. Clinical correlation is advised. CLINICAL HISTORY Date of Last Menstrual Period: Not Provided Menstrual History: Unknown Other Clinical Conditions: Screening Pap SPECIMEN SOURCE A: PAP SMEAR (SUREPATH) CE Patient Name: KETURAH BUCHANAN : 1970 (Age: 49) Sex: F Institution: [facility] Location: [facility] Date of Collection: 06/21/2020 Date of Reported: 06/27/2020 09:41 Results to: Lili Agosto PA-C us Lili BETH CYTOLOGY ORDERABLES F inal Result SEE NARRATIVE * Comprehensive metabolic panel (05/27/2020) us Lili BETH LAB BLOOD ORDERABLES Edited Result - Final from Last 3 Months or Most Recently Relevant to Health Maintenance Insurance [facility] [place] [id number] [facility] Additional Source Comments The information contained in this document represents components of the legal health record. It is not the complete legal health record.[facility]
== END 2025-03-01 16:57 | disposition home or self-care (01) ==
LOC: HO.HMCC 14:53
PROVIDERS: PCP Nurse Practitioner Family; Visit Provider Nurse Practitioner Family
DX: E55.9 Vitamin D deficiency, unspecified (principal); E78.5 Hyperlipidemia, unspecified; Z00.01 Encounter for general adult medical examination with abnormal findings; I73.9 Peripheral vascular disease, unspecified

== ENCOUNTER → 2025-03-01 14:52 | Outpatient (BNVA) | payer OTHER, SELFPAY | PROVIDERS: PCP Nurse Practitioner Family; Visit Provider Nurse Practitioner Family | DX: Z00.01 Encounter for general adult medical examination with abnormal findings (principal); L97.529 Non-pressure chronic ulcer of other part of left foot with unspecified severity; R20.0 Anesthesia of skin; I10 Essential (primary) hypertension; E78.5 Hyperlipidemia, unspecified; E55.9 Vitamin D deficiency, unspecified; I73.9 Peripheral vascular disease, unspecified | CPT/HCPCS: 96127; 99396 ==

== ENCOUNTER 2025-03-12 10:07 | Outpatient (AMB) | payer OTHER, SELFPAY ==
--- NOTE | 2025-03-12 07:52 | MHC.OFFVIS ---
Intake Visit Reasons: Current Smoker Allergies cat dander (CATS) Allergy (Severe, Verified 03/01/25 15:01) SHORTNESS OF BREATH HPI HPI Current Smoker: Details: Initial visit for this 54yo smoker with a 30+PYH. Patient started smoking at age 19 for 35 years at 1ppd. . Denies marijuana use. Denies second hand smoke exposure. Denies exposure to chemicals or substances like asbestos. . Denies known family history of lung cancer. Denies personal history of cancers. Denies chest CT in last year. . Denies recent travel outside the [place]. Denies recent respiratory illness or recent hospitalization for respiratory issues. History of testing positive for COVID. Admits receiving COVID Vaccine. . Denies fever, chills, new/worsening cough, hemoptysis, hoarseness or dysphagia. Denies significant chest pain, significant dyspnea or unintentional weight loss. Patient Lung Cancer Screening Questionnaire reviewed with patient by provider. . Shared Decision Making Completed. Patient meets criteria. Discussed in detail with patient, the risk vs benefit of LDCT screening. Patient consents to proceed with scan. Discussed smoking cessation. Working to quit as has upcoming left fem-pop bypass later this month. [facility] Medical History (Updated 03/12/25 @ 10:27 by Marissa Marquez PA-C) Plantar fasciitis Arthritis History of ETOH abuse Nicotine dependence, cigarettes, uncomplicated GERD (gastroesophageal reflux disease) Hyperlipidemia Hypertension Vitamin D deficiency PAD (peripheral artery disease) AAA (abdominal aortic aneurysm) without rupture Surgical History (Updated 03/12/25 @ 10:29 by Marissa Marquez PA-C) History of cardiac cath S/P aortogram History of repair of anterior cruciate ligament of left knee Family History Father Emphysema lung Mother No problems noted. Social History (Updated 03/12/25 @ 10:28 by Marissa Marquez PA-C) Housing: House Housing Other:: first floor of two family home Are you a primary urgent care to a significant other at home: No Do you presently have visiting nurse or other home services: No Comment: advised of trip hazard Patient Tobacco Use Status: Current everyday Tobacco user Tobacco use type: Cigarette Years Smoked: (onset 19yo, 1ppd x 35yrs - 30+PYH) Cognitive needs: No Hearing needs: No Vision needs: Yes Assessment & Plan Assessment & Plan (1) Nicotine dependence, cigarettes, uncomplicated: Comment: (onset 19yo, 1ppd x 35yrs - 30+PYH) Code(s): F17.210 - Nicotine dependence, cigarettes, uncomplicated Category: Medical Plan: - SDM visit completed today in office. - Patient meets criteria for LDCT for lung cancer screening purposes and is asymptomatic. - Smoking cessation counseling offered. Patients can always call [phone]. - Will arrange for a LDCT scan of the chest for screening purposes at [facility]. - Risks, benefits, and alternatives were discussed in detail and the patient agrees to proceed. - Risks discussed include but are not limited to: radiation exposure, anxiety during testing and while awaiting results, false negatives, false positives and possibility of additional intervention such as further imaging or surgical procedures for benign disease. - Benefits are obviously detection of lung cancer at an early stage which can lead to improved outcomes. - Discussed the importance of screening program compliance with adherence to yearly LDCT scan as scheduled - or sooner interval scans for personalized screening regimen. - Discussed follow up plan. Our office will send a letter discussing results and if needed set up phone call and office visit based on CT findings. - Patient educated on results categorization and the management decisions for suspicious findings potentially found on the screening LDCT scan. Any patient with a Lung RADS score of 3 or 4 will be reviewed by a multidisciplinary team at [facility] to form a plan of action in regards to scan findings. - If further work up is warranted for a suspicious lung finding this will be followed by the Lung Cancer Screening program in conjunction with the Thoracic Surgery Department at [facility]. - A copy of the office note and LDCT will be sent to the patient's PCP - as well as documentation on any associated further plans of care. - Incidental findings on LDCT are the PCP's responsibility. These findings are indicated with an S finding on the LDCT Assessment. A note discussing the findings will be sent to the PCP who is then responsible for further management. - All questions answered.? Coding Level of Care Code Lung Cancer Screening G0296 Diagnoses Nicotine dependence, cigarettes, uncomplicated F17.210
--- OUTSIDE RECORDS SUMMARY | 2025-03-12 11:03 | XMS_ITS | Clinical Summary ---
Author Organization [facility] Address [address] [place] [id number] Phone Care Team Providers Care Film Process Operator Name Role Phone Unavailable Primary Care Provider [...] diagnostic mammogram and axillary ultrasound sent to [facility] (pt preference) -discussed will likely need [...] of 2) 2021 DEPRESSION SCREENING 07/10/2022 07/10/2021 INFLUENZA VACCINE (#1) 2025 COVID-19 VACCINE (2024-2 6 season) 2025 06/03/2021, 11/23/2020, 10/31/2020 LIPID PANEL 05/27/2025 05/27/2020 [...] SEE NARRATIVE - 06/27/2020 9:41 [place] [address] Automatic Riveting Machine Operator: Haily Leigh MD YARN SPOOLER Cytology Report FINAL DIAGNOSIS A. PAP SMEAR [...] 52, 56, 58, 59, 66, 68) by [employer] Onclarity HR-HPV analysis. Clinical correlation is advised. This HPV test was performed at [facility], [address] [place] [address]. This test has been FDA approved for SurePath cervical cytology specimens. The accuracy and precision of this test for all other specimen sources has been verified in the Cytopathology Laboratory of the [facility] and has not been cleared or approved by the U.S. Food and Drug Administration. Clinical correlation is advised. CLINICAL HISTORY Date of Last Menstrual Period: Not Provided Menstrual History: Unknown Other Clinical Conditions: Screening Pap SPECIMEN SOURCE A: PAP SMEAR (SUREPATH) CE Patient Name: KETURAH BUCHANAN : 1970 (Age: 49) Sex: F Institution: [facility] Location: [facility] Date of Collection: 06/21/2020 Date of Reported: 06/27/2020 09:41 Results to: Lili Agosto PA-C Lili BETH CYTOLOGY ORDERABLES F inal Result SEE NARRATIVE * Comprehensive metabolic panel (05/27/2020) Lili BETH LAB BLOOD ORDERABLES Edited Result - Final from Last 3 Months or Most Recently Relevant to Health Maintenance Insurance [facility] [place] [id number] [facility] Additional Source Comments The information contained in this document represents components of the legal health record. It is not the complete legal health record.[facility]
== END 2025-03-12 10:40 | disposition home or self-care (01) ==
LOC: HO.HPS 10:07
PROVIDERS: PCP Nurse Practitioner Family; Referring Provider Nurse Practitioner Family; Visit Provider Physician Assistant Medical
DX: F17.210 Nicotine dependence, cigarettes, uncomplicated (principal)
CPT/HCPCS: G0296

== ENCOUNTER 2025-03-12 10:36 | Outpatient (REF) | payer OTHER, SELFPAY ==
--- NOTE | ~2025-03-12 | CT_ITS ---
CLINICAL HISTORY: F17.210 - Nicotine dependence, cigarettes, uncomplicated CT lung cancer screening (LDCT) Comparison: None provided Technique: Axial CT images of the chest using low-dose technique. Referring provider counseled the patient on shared decision-making for LDCT screening. Additional counseling was provided on smoking cessation. Effective radiation dose total: DLP 49.7 mGycm, CTDIvol 1.4 mGy. Findings: Lung: Linear atelectasis at the bases. No suspicious nodules. Coronary artery calcifications: None Limited upper abdomen: Atrophic pancreas. Other: None IMPRESSION: Category 1: Negative. Continue annual LDCT screening This document has been electronically signed by: Sujata Lechuga MD on 03/13/2025 19:05:50
[2025-03-12 11:27] LABS: MANUAL DIFF FLAG NO
[2025-03-12 11:52] LABS: Hematocrit 43.5 % (37.0-47.0); Hemoglobin 15.4 g/dl (12.0-16.0); Imm Gran Abs Auto 0.03 X10*3/uL (0.00-0.03); Imm Gran Pct Auto 0.3 % (0.0-0.4); Lymphocytes Absolute Auto 2.9 X10*3/uL (1.2-4.9); Mean Corpuscular HGB Conc 35.4 g/dl (31.0-35.0); Mean Corpuscular Hemoglobin 36.6 pg (27.0-33.0); Mean Corpuscular Volume 103.3 fL (80.0-98.0); NRBC Abs Auto 0.000 X10*3/uL (0.0-0.012); NRBC Pct Auto 0.0 /100WBC (0.0-0.2); Platelet Count 340 X10*3/uL (160-400); Red Blood Count 4.21 X10*6/uL (4.20-5.50); White Blood Count 11.3 X10*3/uL (4.8-10.8)
[2025-03-12 12:48] LABS: Alanine Aminotransferase 26 U/L (0-31); Albumin Level 4.2 g/dL (3.5-5.0); Alkaline Phosphatase 71 U/L (39-117); Anion Gap 12 (12-20); Aspartate Amino Transferase 23 U/L (5-31); Blood Urea Nitrogen 12 mg/dL (9-16); Calcium 9.4 mg/dL (8.4-10.2); Carbon Dioxide 29 mmol/L (22-29); Chloride 100 mmol/L (96-108); Cholesterol 190 mg/dL (<200); Estimated Glomerular Filt Rate > 60; HDL Cholesterol 31 mg/dL (>40); Iron 44 mcg/dL (30-160); Percent Iron Saturation 13 % (15-50); Potassium 4.1 mmol/L (3.3-5.1); Sodium 137 mmol/L (135-145); Total Iron Binding Capacity 329 mcg/dL (228-428); Total Protein 7.2 g/dL (6.5-8.0); Triglycerides 115 mg/dL (<150); Unsaturated Iron Binding 285 ug/dL
[2025-03-12 12:58] LABS: Ferritin 84 ng/mL (10-250)
[2025-03-12 13:15] LABS: Folate < 2.2 ng/mL (> or = 4.0); Vitamin B12 211 pg/mL (200-900)
== END 2025-03-12 10:37 | disposition home or self-care (01) ==
LOC: HO.CT 10:36
PROVIDERS: PCP Nurse Practitioner Family; Visit Provider Physician Assistant Medical
DX: Z12.2 Encounter for screening for malignant neoplasm of respiratory organs (principal); F17.210 Nicotine dependence, cigarettes, uncomplicated; F10.11 Alcohol abuse, in remission; E55.9 Vitamin D deficiency, unspecified; Z00.01 Encounter for general adult medical examination with abnormal findings
CPT/HCPCS: 36415; 71271; 80053; 80061; 82306; 82607; 82728; 82746; 83540; 84443; 85025; G0296

== ENCOUNTER → 2025-03-12 10:37 | Outpatient (BNV) | payer OTHER, SELFPAY | PROVIDERS: PCP Nurse Practitioner Family; Visit Provider Radiology Diagnostic Radiology | DX: F17.210 Nicotine dependence, cigarettes, uncomplicated (principal) | CPT/HCPCS: 71271 ==

== ENCOUNTER 2025-04-05 07:39 | Inpatient (IN) | payer OTHER, SELFPAY ==
[2025-01-29 08:15] VITALS: BMI 28.3
--- NOTE | 2025-01-29 09:50 | P.CONAN_ITS ---
Documented by User: Steffanie Frederick NP 03/16/25 10:41 HPI - Anesthesia Eval Consult details Narrative: 54 yr old female for femoral popliteal bypass graft, scheduled for 04/05/25 Cleared by cardiology 01/28/25 with consideration pt is intermediate cardiac risk Cardiac cath done at [facility] 01/24/25 following an abnormal stress test Smoker: cessation counseling discussed with PCP GERD: on PPI PMFSH Active Problems Active Problems: All Active Problems (Updated 01/28/25 @ 13:53 by Reggie Munoz NP) Hyperlipidemia (Acute) Hypertension (Acute) Status post cardiac catheterization (Acute) Abnormal stress test (Acute) Abnormal myocardial perfusion study (Acute) Foot ulceration (Acute) Preoperative cardiovascular examination (Acute) Leukocytosis (Acute) UTI (urinary tract infection) (Acute) Neuropathy (Acute) Heart palpitations (Acute) Systolic murmur (Acute) Foot pain, bilateral (Acute) History of ETOH abuse (Acute) Nicotine dependence, cigarettes, uncomplicated (Acute) Vitamin D deficiency (Acute) PAD (peripheral artery disease) (Acute) AAA (abdominal aortic aneurysm) without rupture (Acute) Past Medical History Medical History Plantar fasciitis Arthritis History of ETOH abuse Nicotine dependence, cigarettes, uncomplicated GERD (gastroesophageal reflux disease) Hyperlipidemia Hypertension Vitamin D deficiency PAD (peripheral artery disease) AAA (abdominal aortic aneurysm) without rupture Family History Family History Father Emphysema lung Mother No problems noted. Family history of problems with anesthesia: No Surgical History Surgical History History of cardiac cath S/P aortogram History of repair of anterior cruciate ligament of left knee History of Problems with Anesthesia: No Social History Social History (Updated 03/12/25 @ 10:28 by Marissa Marquez PA-C) Housing: House Housing Other:: first floor of two family home Are you a primary personal care home administrator to a significant other at home: No Do you presently have visiting nurse or other home services: No Comment: advised of trip hazard Patient Tobacco Use Status: Current everyday Tobacco user Tobacco use type: Cigarette Cigarettes Per Day: 15 Years Smoked: (onset 19yo, 1ppd x 35yrs - 30+PYH) Smoked in Last 30 Days: Yes Patient Interested in Nicotine Replacement: Yes (Patient has nicotine patches and gum she was prescribed) Use of substances other than those prescribed or required for medical reasons: No Have you been hit, kicked, punched, or otherwise hurt by someone within the past year? If so, by whom?: No Spiritual Healthcare Practices: no Synagogue Healthcare Practices: no Cultural Healthcare Practices: no Are you DNR?: No Advance Directives: No (friend is primary contact) Advance Directives on File: No FDLMP: n/a Poor oral hygiene: No Cognitive needs: No Hearing needs: No Vision needs: Yes Meds Allergies Allergy/AdvReac Type Severity Reaction Status Date / Time cat dander (CATS) Allergy Severe SHORTNESS Verified 04/05/25 06:11 OF BREATH Home Medications ?Medication ?Instructions ?Recorded ?Confirmed ?Last Taken ?Type omeprazole 10 mg capsule,delayed 10 mg PO DAILY PRN Ac id Reflux 03/05/23 04/05/25 Unknown History release Exam Height,Weight and Vital Signs: Height 5 ft 8 in Weight 84.368 kg Narrative Narrative: Echo December 2023 Conclusions: - The left ventricular systolic function is normal. The calculated ejection fraction is 60% by biplane method. - The mid inferoseptal segment is hypokinetic. - No obvious valvular pathology seen on this study. EKG 12/2024 Vent. Rate : 66 BPM Atrial Rate : 66 BPM P-R Int : 172 ms QRS Dur : 100 ms QT Int : 414 ms P-R-T Axes : 49 -21 -8 degrees QTcB Int : 434 ms Normal sinus rhythm Left ventricular hypertrophy with repolarization abnormality ( R in aVL , [place] product ) Abnormal ECG When compared with ECG of 31-May-2005 17:19, T wave inversion now evident in Anterior leads Cardiac Cath 01/05/25 No CAD presentation symptoms No anginal symptoms Assessment and Plan Final Anesthetic Review Family History of Problems with Anesthesia: No History of Problems with Anesthesia: No Documented by User: Maxine Briones DO 04/05/25 07:31 [facility] Past Medical History Medical History Plantar fasciitis Arthritis History of ETOH abuse Nicotine dependence, cigarettes, uncomplicated GERD (gastroesophageal reflux disease) Hyperlipidemia Hypertension Vitamin D deficiency PAD (peripheral artery disease) AAA (abdominal aortic aneurysm) without rupture Family History Family History Father Emphysema lung Mother No problems noted. Family history of problems with anesthesia: No Surgical History Surgical History History of cardiac cath S/P aortogram History of repair of anterior cruciate ligament of left knee History of Problems with Anesthesia: No Social History Social History (Updated 03/12/25 @ 10:28 by Marissa Marquez PA-C) Housing: House Housing Other:: first floor of two family home Are you a primary personal care home administrator to a significant other at home: No Do you presently have visiting nurse or other home services: No Comment: advised of trip hazard Patient Tobacco Use Status: Current everyday Tobacco user Tobacco use type: Cigarette Cigarettes Per Day: 15 Years Smoked: (onset 19yo, 1ppd x 35yrs - 30+PYH) Smoked in Last 30 Days: Yes Patient Interested in Nicotine Replacement: Yes (Patient has nicotine patches and gum she was prescribed) Use of substances other than those prescribed or required for medical reasons: No Have you been hit, kicked, punched, or otherwise hurt by someone within the past year? If so, by whom?: No Spiritual Healthcare Practices: no Synagogue Healthcare Practices: no Cultural Healthcare Practices: no Are you DNR?: No Advance Directives: No (friend is primary contact) Advance Directives on File: No FDLMP: n/a Poor oral hygiene: No Cognitive needs: No Hearing needs: No Vision needs: Yes Meds Allergies Allergy/AdvReac Type Severity Reaction Status Date / Time cat dander (CATS) Allergy Severe SHORTNESS Verified 04/05/25 06:11 OF BREATH Home Medications ?Medication ?Instructions ?Recorded ?Confirmed ?Last Taken ?Type omeprazole 10 mg capsule,delayed 10 mg PO DAILY PRN Ac id Reflux 03/05/23 04/05/25 Unknown History release Exam Exam Date and Time: 04/05/25726 Height,Weight and Vital Signs: Height 5 ft 8 in Weight 84.368 kg Vital Signs Temperature 97.9 F 04/05/25 06:30 Pulse Rate 70 04/05/25 06:30 Respiratory Rate 17 04/05/25 06:30 Blood Pressure 145/92 H 04/05/25 06:30 Pulse Oximetry 98 04/05/25 06:30 Oxygen Delivery Method Room Air 04/05/25 06:30 Temperature 97.9 F 04/05/25 06:30 Pulse Rate 70 04/05/25 06:30 Respiratory Rate 17 04/05/25 06:30 Blood Pressure 145/92 H 04/05/25 06:30 Pulse Oximetry 98 04/05/25 06:30 Oxygen Delivery Method Room Air 04/05/25 06:30 Airway Mallampati Class: II TM Dist: <=3cm Neck ROM: Full Loose/Missing/Broken Teeth: No (patient denies any loose or broken teeth) Heart: S1S2 Lungs: CTAB Assessment and Plan Assessment Anesthesia Assessment: Anesthesia Plan Discussed and Chart Reviewed Final Anesthetic Review Family History of Problems with Anesthesia: No History of Problems with Anesthesia: No NPO: Yes ASA Class: III Final Preanesthetic Review: No Changes in Pt Med Stat, Meds/Allgs Chart Reviewed, Consent Obtained/Reviewed and Anes Risks/Benef Reviewed Patient Risk: Intermediate Procedure Risk: High Anesthetic Plan Anesthetic Plan: GA and Agree w/ Assess. and Plan Disposition: Standard PACU
[2025-04-05] VITALS (21 sets, daily range): BP systolic 125–174; BP diastolic 71–100; PULSE 69–87; RESP 8–20; TEMP 36.1–37.7; O2SAT 92–98; BMI 27.5; BMI 28.8
[2025-04-05] MEDS: Lactated Ringers 1,000 ML 100 ML IVCONT (06:35)
[2025-04-05 06:44] LABS: UPreg QC Valid YES
[2025-04-05 07:00] LABS: INTERNATIONAL NORM RATIO 1.0 (0.9-1.1); Prothrombin Time 11.2 SEC (10.9-12.4)
[2025-04-05 07:03] LABS: Partial Thromboplastin Time 31.5 SEC (26.7-34.1)
[2025-04-05 07:07] LABS: Hematocrit 40.1 % (37.0-47.0); Hemoglobin 14.1 g/dl (12.0-16.0); Mean Corpuscular HGB Conc 35.2 g/dl (31.0-35.0); Mean Corpuscular Hemoglobin 37.0 pg (27.0-33.0); Mean Corpuscular Volume 105.2 fL (80.0-98.0); NRBC Abs Auto 0.000 X10*3/uL (0.0-0.012); NRBC Pct Auto 0.0 /100WBC (0.0-0.2); Platelet Count 287 X10*3/uL (160-400); Red Blood Count 3.81 X10*6/uL (4.20-5.50); White Blood Count 13.4 X10*3/uL (4.8-10.8)
[2025-04-05 07:08] LABS: Anion Gap 12 (12-20); Blood Urea Nitrogen 11 mg/dL (9-16); Calcium 9.2 mg/dL (8.4-10.2); Carbon Dioxide 25 mmol/L (22-29); Chloride 106 mmol/L (96-108); Creatinine Clr Calc Pharmacy 135.2; Estimated Glomerular Filt Rate > 60; Potassium 3.5 mmol/L (3.3-5.1); Sodium 139 mmol/L (135-145)
--- NOTE | 2025-04-05 07:24 | MHC.SHP ---
Pre-Procedural Eval Section A - 24 Hr Update-Section A only Date of Service: 04/05/25 Section B - Complete if H&P > 30 days Chief Complaint: Peripheral vascular disease, unspecified Relevant Family History (Specify if Yes): No Relevant Social History: Tobacco Use Allergies: Allergies Allergy/AdvReac Type Severity Reaction Status Date / Time cat dander (CATS) Allergy Severe SHORTNESS Verified 04/05/25 06:11 OF BREATH Review of Systems Sugical H&P ROS: Negative: Constitution, Cardiovascular, Respiratory, Neurological, Musculoskeletal and Integumentary Exam Surgical H&P Exam: Normal: HEENT, Normal: Heart, Normal: Lungs and Normal: Extremities Plan Diagnosis/Plan: Unchanged I have reviewed the history and physical and performed a pertinent physical examination on my patient. No changes have occurred unless specified. Time Spent With Patient Time: Total time managing care of this patient today ____ minutes.
--- OUTSIDE RECORDS SUMMARY | 2025-04-05 07:42 | XMS_ITS | Clinical Summary ---
Author Organization [facility] Address [address] [place] [phone] Phone Care Team Providers Care Bar Host Name Role Phone Unavailable Primary Care Provider [...] diagnostic mammogram and axillary ultrasound sent to [facility] (pt preference) -discussed will likely [...] SEE NARRATIVE - 06/27/2020 9:41 [place] [address] Crust Sorter: Haily Liegh MD FEATHER CUTTING MACHINE FEEDER Cytology Report FINAL DIAGNOSIS A. PAP SMEAR [...] 52, 56, 58, 59, 66, 68) by zerved Onclarity HR-HPV analysis. Clinical correlation is advised. This HPV test was performed at [facility], [address] [place] [address]. This test has been FDA approved for SurePath cervical cytology specimens. The accuracy and precision of this test for all other specimen sources has been verified in the Cytopathology Laboratory of the [facility] and has not been cleared or approved by the U.S. Food and Drug Administration. Clinical correlation is advised. CLINICAL HISTORY Date of Last Menstrual Period: Not Provided Menstrual History: Unknown Other Clinical Conditions: Screening Pap SPECIMEN SOURCE A: PAP SMEAR (SUREPATH) CE Patient Name: KETURAH BUCHANAN : 1970 (Age: 49) Sex: F Institution: [facility] Location: [facility] Date of Collection: 06/21/2020 Date of Reported: 06/27/2020 09:41 Results to: Lili Agosto PA-C Lili [facility]ETH CYTOLOGY ORDERABLES F inal Result SEE NARRATIVE * Comprehensive metabolic panel (05/27/2020) Lili BETH LAB BLOOD ORDERABLES Edited Result - Final from Last 3 Months or Most Recently Relevant to Health Maintenance Insurance [facility] [id number] [facility] Additional Source Comments The information contained in this document represents components of the legal health record. It is not the complete legal health record.[facility]
--- NOTE | 2025-04-05 10:40 | P.OP_ITS ---
Operative Note Operative Note Date of Service: 04/05/25 Narrative: Operative note by [facility] Preoperative diagnosis: Atherosclerosis with activity limiting left lower extremity claudication Postoperative diagnosis: Same Procedure: Left femoral to above knee popliteal bypass (Goodrich Propaten) Surgeon:Abraham Senior M.D. Placement Secretary: Dr. Damon Anesthesia: General Specimens: None Drains: None Estimated blood loss: 100 mL Indications: 54-year-old female with severe activity limiting claudication of the left lower extremity now presents for fem-pop bypass. She had prior imaging including angiogram. The patient has signed the informed consent after re viewing risks, complications, benefits, and alternatives previously discussed with the patient. The patient was given the opportunity to ask any additional questions or voice any concerns. All questions were answered to the patient's satisfaction. Procedure in detail: Patient was brought to the operating room prior to which a time-out was called for patient identification site verification. Left lower extremity was prepped and draped in the standard surgical fashion. Proximally 10 cm longitudinal incision was carried out over the common femoral artery just just below the inguinal ligament. We dissected down through the fascia and sheath and we were easily able to identify the common carotid. We were able to dissect up to the inguinal ligament in addition below we were able to identify the bifurcation where the SFA and profundus took off. We isolated these we then turned our attention to the above knee popliteal. A medial popliteal exposure was used. We made an incision between the sartorius and vastus medialis muscles. We went through the fascia and we went down into just below the adductor canal. This did require some dissection but we were then able to identify the popliteal artery with the aid of a Doppler. Once identified we I again isolated this with silastic loops. We brought a aortic tunneler from knee incision to the groin incision. We then passed a umbilical tape through this. Once this was accomplished we administered 6000 units of systemic heparin. An additional 1000 had to be administered at the 1 hour natasha. Once this was accomplished we then clamped the common femoral proximally and distally we made an arteriotomy and we open this with Denis scissors. We then used a Goodrich Propaten 6 mm graft. This was trimmed to appropriate size and using a CV 6 Goodrich suture we circumferentially anastomosed. We anastomosed all the way around and once completely flushed through the graft. The graft was then passed through the previously created tunnel to the above knee popliteal area. The graft was trimmed to the appropriate size we angled this and we circumferentially anastomosed in a similar fashion after we removed the rings. This was once a gain was a CV 6 Goodrich suture. Prior to closure we flushed clean. Once this was accomplished we closed the anastomosis. There was 1 or 2 areas of bleeding that had to be closed with an intermittent 6 0 suture. Once this was accomplished adequate hemostasis was achieved. Vistaseal was used in the both the proximal and distal incisions. We reapproximated deep layer using 2-0 Polysorb, superficial layer with 3-0 Polysorb all in interrupted manner. Finally skin was closed using skin clips. At the end the case sponge instrument counts were correct. Patient tolerated the procedure well. Returned to recovery with stable vitals. Patient had a palpable DP pulse at the end of the case. This note is constructed using voice recognition software. While every effort has been made to ensure accuracy, bulk system operator errors may have been included. Thank you for allowing me to participate in the care of your patient. Yours sincerely, Abraham Senior MD, FACS, R.P.V.I.
--- NOTE | 2025-04-05 13:23 | PHA.MEDREC ---
Pharmacy Consult ? Medication Reconciliation Pharmacy has completed the medication reconciliation.mED REC COMPLETED BY NURSING, REVIEWED BY PHARMACIST
--- NOTE | 2025-04-05 16:05 | PM.CCHP ---
History of Present Illness Date of Service: 04/05/25 Chief Complaint: surgery 54-year-old lady with past medical history of hypertension, hyperlipidemia, GERD, peripheral artery disease was evaluated by vascular surgery for recurrent lower extremity wound for which she underwent lower extremity angiogram based on which patient is admitted to the hospital for an elective left femoral to above knee popliteal bypass which she underwent this morning by Dr. Senior and the procedure was uneventful. He is transferred to ICU for postop monitoring. Review of Systems Constitutional: Constitutional: Denies body ache(s) and Denies chills Eyes: Eyes: Denies exophthalmos and Denies decreased night vision ENT: Denies Normal hearing present and Denies bleeding gums Cardiovascular: Cardiovascular: Denies Abdominal Distension and Denies chest pain Respiratory: Respiratory: Denies chest congestion and Denies cough Gastrointestinal: Gastrointestinal: Denies change in bowel habits and Denies change in stool character Neurologic: Denies Normal hearing present, Denies Neuro-related abnormal movements and Denies Abnormal speech present [facility] Past Medical History Medical History Plantar fasciitis Arthritis History of ETOH abuse Nicotine dependence, cigarettes, uncomplicated GERD (gastroesophageal reflux disease) Hyperlipidemia Hypertension Vitamin D deficiency PAD (peripheral artery disease) AAA (abdominal aortic aneurysm) without rupture Family History Family History Father Emphysema lung Mother No problems noted. Surgical History Surgical History History of cardiac cath S/P aortogram History of repair of anterior cruciate ligament of left knee Social History Social History (Updated 03/12/25 @ 10:28 by Marissa Marquez PA-C) Household Members: Friend(s) Household Members Other:: one friend Housing: Apartment Housing Other:: first floor of two family home Are you a primary neurocritical care physician to a significant other at home: No Do you presently have visiting nurse or other home services: No Comment: advised of trip hazard Patient Tobacco Use Status: Current everyday Tobacco user Tobacco use type: Cigarette Cigarettes Per Day: 15 Years Smoked: (onset 19yo, 1ppd x 35yrs - 30+PYH) Smoked in Last 30 Days: Yes Patient Interested in Nicotine Replacement: Yes Patient Given Instructions on How to Stop Smoking: Yes Date Education Initiated: 04/05/25 Second Hand Smoke Exposure: No Use of substances other than those prescribed or required for medical reasons: No Have you been hit, kicked, punched, or otherwise hurt by someone within the past year? If so, by whom?: No Do you feel safe in your current relationship?: No Is there a partner from a previous relationship who is making you feel unsafe now?: No Are you made to feel afraid or neglected: No Spiritual Healthcare Practices: no Spiritism Healthcare Practices: no Cultural Healthcare Practices: no Are you DNR?: No Advance Directives: No Advance Directives Information Provided: Yes Advance Directives on File: No Do you have a plan to hurt others: No Plan Recently lost weight without trying: No How much weight loss: Not applicable Eating poorly because of decreased appetite: No Nutrition screen score: 0 Nutrition Risks: Dental problems Patient : No FDLMP: n/a : No Poor oral hygiene: Yes Cognitive needs: No Hearing needs: No Vision needs: Yes Meds Allergies Allergy/AdvReac Type Severity Reaction Status Date / Time cat dander (CATS) Allergy Severe SHORTNESS Verified 04/05/25 06:11 OF BREATH Active Medications: Current Medications Acetaminophen (Acetaminophen 325 Mg Tablet) 650 mg PO Q6H PRN PRN Reason: Pain, Mild 1-3,fever,headache Aspirin (Aspirin Enteric Coated 81 Mg Tablet.Dr) 81 mg PO DAILY [facility] Atorvastatin Calcium (Atorvastatin Calcium 20 Mg Tablet) 20 mg PO BEDTIME [facility] Calcium Carbonate (Calcium Carbonate 750 Mg Tab.Chew) 750 mg PO Q4H PRN PRN Reason: Heartburn Folic Acid (Folic Acid 1 Mg Tablet) 1 mg PO DAILY [facility] Hydrochlorothiazide (Hydrochlorothiazide 12.5 Mg Tablet) 12.5 mg PO DAILY [facility] Sodium Chloride (Ns) 1,000 mls @ 80 mls/hr IVCONT .[id number] ILIR Last Admin: 04/05/25 13:45 Dose: 80 mls/hr Losartan Potassium (Losartan Potassium 50 Mg Tablet) 50 mg PO DAILY [facility] Magnesium Hydroxide (Milk Of Magnesia 30 Ml Oral.Susp) 30 ml PO DAILY PRN PRN Reason: Constipation Melatonin (Melatonin 3 Mg Tablet) 6 mg PO BEDTIME PRN PRN Reason: Insomnia Morphine Sulfate (Morphine Sulfate 2 Mg/Ml Cartridge) 2 mg IVPUSH Q4H PRN; Protocol PRN Reason: Pain, Severe (Pain Scale 7-10) Last Admin: 04/05/25 13:50 Dose: 2 mg Naloxone HCl (Naloxone Hcl 0.4 Mg/Ml Vial) 0.04 mg IVPUSH Q5M PRN PRN Reason: Excessive sedation or RR < 8 Nicotine (Nicotine 21 Mg Patch.Td24) 21 mg TRANSDERMA DAILY [facility] Omeprazole (Omeprazole 20 Mg Capsule.Dr) 20 mg PO DAILY PRN PRN Reason: Acid Reflux Oxycodone HCl (Oxycodone Hcl Immed Release 5 Mg Tablet) 5 mg PO Q4H PRN PRN Reason: Pain, Moderate(Pain Scale 4-6) Sodium Chloride (0.9 % Sodium Chloride Flush 3 Ml Syringe) [facility] Last Admin: 04/05/25 14:37 Dose: Not Given Vitamin D (Cholecalciferol (Vitamin D3) 25 Mcg Tablet) 50 mcg PO DAILY [facility] Home Medications ?Medication ?Instructions ?Recorded ?Confirmed ?Last Taken ?Type omeprazole 10 mg capsule,delayed 10 mg PO DAILY PRN Acid Reflux 03/05/23 04/05/25 Unknown History release Physical Exam Vital Signs: Vital Signs: Last Vital Signs Temp 98.1 F 04/05/25 13:00 Pulse 77 04/05/25 14:56 Resp 14 04/05/25 14:56 BP 146/92 H 04/05/25 14:56 Pulse Ox 96 04/05/25 14:56 O2 Del Method Room Air 04/05/25 14:56 O2 Flow Rate 2 04/05/25 11:20 BMI result Body Mass Index 28.8 General: Middle-aged female in no acute distress, lying in the bed Nutritional Appearance: well nourished and overweight Eyes: appearance normal, both eyes and all related structures; Alignment and Position: alignment normal and position normal Neck: No lymphadenopathy, no thyromegaly Resp: bilateral air entry equal, occasional added sounds present Cardio: Regular rate, regular rhythm; Heart sounds: S1 normal heart sound present and S2 normal heart sound present GI: soft, nontender, no guarding, no hepatosplenomegaly : bladder normal to inspection, bladder normal to palpation, no renal angle tenderness Skin: no rashes or lesions noted and elasticity normal Neuro: oriented to person, oriented to place, oriented to time and moves all extremities Neuro: Cranial nerves: No Normal hearing present Speech: No Abnormal speech present Results Labs 04/05/25 06:42 04/05/25 06:42 Labs: Laboratory Results - last 24 hr 04/05/25 04/05/25 06:08 06:42 MCV 105.2 H MCH 37.0 H MCHC 35.2 H RDW 15.9 Plt Count 287 MPV 9.6 Absolute Nucleated RBC 0.000 Nucleated RBC % (auto) 0.0 PT 11.2 INR 1.0 APTT 31.5 Anion Gap 12 Estim Creat Clear Calc 135.2 Estimated GFR > 60 Fasting Glucose 120 H Calcium 9.2 Urine Test NEGATIVE Blood Type O Positive Antibody Screen NEGATIVE Assessment and Plan (1) Hypertension: Status: Acute (2) PAD (peripheral artery disease): Status: Acute Plan Peripheral artery disease: Patient with significant peripheral artery disease admitted to undergo left popliteal femoral bypass, procedure ended uneventfully this morning. Admitted to ICU for postop monitoring. We will closely monitor blood pressures, currently stable. Lab stable, patient comfortable. Continue as needed pain medications. Aspirin to be restarted as per vascular surgery We will closely monitor H&H and for any signs of bleeding. Hypertension: On losartan 50 mg, hydrochlorothiazide 12.5 mg at home Prophylaxis: SCD
[2025-04-05] MEDS: oxyCODONE HCl Immed Release 5 MG TABLET PO (21:03)
[2025-04-06] VITALS (14 sets, daily range): BP systolic 119–157; BP diastolic 69–93; PULSE 57–76; RESP 12–18; TEMP 36.1–37.5; O2SAT 93–99
[2025-04-06] MEDS: oxyCODONE HCl Immed Release 5 MG TABLET PO ×3 (02:59→20:16)
[2025-04-06 05:58] LABS: MANUAL DIFF FLAG NO
[2025-04-06 06:14] LABS: Anion Gap 10 (12-20); Blood Urea Nitrogen 9 mg/dL (9-16); Calcium 8.4 mg/dL (8.4-10.2); Carbon Dioxide 24 mmol/L (22-29); Chloride 109 mmol/L (96-108); Creatinine Clr Calc Pharmacy 138.3; Estimated Glomerular Filt Rate > 60; Potassium 3.8 mmol/L (3.3-5.1); Sodium 139 mmol/L (135-145)
[2025-04-06 06:33] LABS: Hematocrit 36.8 % (37.0-47.0); Hemoglobin 12.8 g/dl (12.0-16.0); Imm Gran Abs Auto 0.07 X10*3/uL (0.00-0.03); Imm Gran Pct Auto 0.5 % (0.0-0.4); Lymphocytes Absolute Auto 2.5 X10*3/uL (1.2-4.9); Mean Corpuscular HGB Conc 34.8 g/dl (31.0-35.0); Mean Corpuscular Hemoglobin 36.7 pg (27.0-33.0); Mean Corpuscular Volume 105.4 fL (80.0-98.0); NRBC Abs Auto 0.000 X10*3/uL (0.0-0.012); NRBC Pct Auto 0.0 /100WBC (0.0-0.2); Platelet Count 276 X10*3/uL (160-400); Red Blood Count 3.49 X10*6/uL (4.20-5.50); White Blood Count 14.9 X10*3/uL (4.8-10.8)
[2025-04-06] MEDS: Nicotine 21 MG PATCH.TD24 TRANSDERMA (08:00)
[2025-04-06] MEDS: 0.9 % Sodium Chloride Flush 3 ML SYRINGE IVFLUSH ×2 (08:02→20:21)
[2025-04-06] MEDS: Aspirin Enteric Coated 81 MG TABLET.DR PO (08:02)
--- NOTE | 2025-04-06 09:03 | PM.CCPN ---
Subjective Subjective Date of Service: 04/06/25 Interval History: Doing well, no new complaints stable Critical Care Time (minutes): 35 Physical Exam Vital Signs: Vital Signs: Last Vital Signs Temp 97.3 F 04/06/25 07:59 Pulse 65 04/06/25 07:59 Resp 15 04/06/25 07:59 BP 139/83 04/06/25 07:59 Pulse Ox 96 04/06/25 07:59 O2 Del Method Room Air 04/06/25 07:59 O2 Flow Rate 2 04/05/25 11:20 BMI result Body Mass Index 28.8 General: Middle-aged lady in no acute distress Nutritional Appearance: well nourished and overweight Eyes: appearance normal, both eyes and all related structures; Alignment and Position: alignment normal and position normal Neck: No lymphadenopathy, no thyromegaly Resp: bilateral air entry equal, no added sounds present Cardio: Regular rate, regular rhythm; Heart sounds: S1 normal heart sound present and S2 normal heart sound present GI: soft, nontender, no guarding, no hepatosplenomegaly : bladder normal to inspection, bladder normal to palpation, no renal angle tenderness Skin: no rashes or lesions noted and elasticity normal Neuro: oriented to person, oriented to place, oriented to time and moves all extremities Objective Data Labs 04/06/25 05:08 04/06/25 05:08 Labs: Laboratory Results - last 24 hr 04/06/25 05:08 WBC 14.9 H RBC 3.49 L Hgb 12.8 Hct 36.8 L MCV 105.4 H MCH 36.7 H MCHC 34.8 RDW 15.9 Plt Count 276 MPV 10.0 Immature Gran % (Auto) 0.5 H Neut % (Auto) 74.6 H Lymph % (Auto) 16.9 L [place] % (Auto) 7.2 Eos % (Auto) 0.5 Baso % (Auto) 0.3 Lymph # (Auto) 2.5 [place] # (Auto) 1.1 Eos # (Auto) 0.1 Baso # (Auto) 0.1 Abs Immat Gran (auto) 0.07 H Absolute Neuts (auto) 11.1 H Absolute Nucleated RBC 0.000 Nucleated RBC % (auto) 0.0 Sodium 139 Potassium 3.8 Chloride 109 H Carbon Dioxide 24 Anion Gap 10 L BUN 9 Creatinine 0.54 Estim Creat Clear Calc 138.3 Estimated GFR > 60 Random Glucose 126 H Calcium 8.4 D Progress Note: A&P Assessment and plan (1) PAD (peripheral artery disease): Status: Acute (2) Hypertension: Status: Acute (3) Hyperlipidemia: Status: Acute Plan Peripheral artery disease: Patient with significant peripheral artery disease admitted to undergo left popliteal femoral bypass on 04/05/2025. Admitted to ICU for postop monitoring. Lab stable, patient comfortable. Continue as needed pain medications. Aspirin and statin as per vascular surgery We will closely monitor H&H and for any signs of bleeding. Hypertension: On losartan 50 mg, hydrochlorothiazide 12.5 mg at home Prophylaxis: SCD Quality Stroke Does the patient have a stroke diagnosis?: No VTE Prior VTE?: No VTE Risk Level:: Surgical - low VTE Device Contraindication: Treatment Not Tolerated VTE Drug Contraindication: Treatment Not Tolerated
--- NOTE | 2025-04-06 09:09 | HO.POSTANES ---
Post Anesthesia Evaluation Post Anesthesia Evaluation Date of Service: 04/06/25 Vital Signs: Vital Signs Temp Pulse Resp BP Pulse Ox O2 Del Method 04/06/25 07:59 97.3 F 65 15 139/83 96 Room Air 04/06/25 07:00 61 18 139/83 96 Room Air 04/06/25 06:00 66 13 132/79 93 Room Air 04/06/25 05:00 74 14 140/77 H 95 Room Air 04/06/25 04:00 98.2 F 67 12 157/89 H 95 Room Air 04/06/25 03:00 69 12 139/83 95 Room Air 04/06/25 01:58 72 14 153/93 H 95 Room Air 04/06/25 01:00 71 15 143/82 H 95 Room Air 04/06/25 00:00 98.4 F 71 14 134/83 94 Room Air 04/05/25 23:00 69 15 155/85 H 93 Room Air 04/05/25 21:58 72 17 150/84 H 94 Room Air Anesthesia: General Mental Status: Awake Pain Control: Satisfactory Nausea/Vomiting: None Hydration: Adequate Anesthesia-Related Issues: No Anes. Related Issues
--- NOTE | 2025-04-06 09:54 | P.PNVS_ITS ---
Subjective Subjective Date of Service: 04/06/25 Patient reports: no new complaints and feels better Interval history: 54-year-old female postop day 1 status post fem-pop bypass left lower extremity. Appears to be doing extremely well. No interval issues. Pain was better controlled overnight. She has been tolerating a regular diet. Now for routine postop follow-up. Physical Exam Vital Signs: Vital Signs: Last Vital Signs Temp 97.3 F 04/06/25 07:59 Pulse 57 04/06/25 09:00 Resp 18 04/06/25 09:00 BP 124/82 04/06/25 09:00 Pulse Ox 96 04/06/25 09:00 O2 Del Method Room Air 04/06/25 09:00 O2 Flow Rate 2 04/05/25 11:20 BMI result Body Mass Index 28.8 Const: General: cooperative, healthy appearing and comfortable Orientation/consciousness: oriented to person, oriented to place and oriented to time HEENT: Head: Yes normal to inspection Neck: Neck: Yes normal visual inspection Carotids: no bruits Chest: Chest palpation & inspection: normal inspection of the chest Resp: Effort & Inspection: normal respiratory effort and able to speak in complete sentences Auscultation: clear to auscultation bilaterally, no crackles, no rales, no rhonchi and no wheezes Cardio: Other: Palpable left dorsalis pedis pulse Rate: regular rate Rhythm: regular rhythm Heart sounds: S1 normal heart sound present and S2 normal heart sound present Bruits: no carotid bruits Peripheral pulses: Peripheral pulses 2+ throughout GI: Inspection: Yes normal to inspection Skin: Wounds: no wounds Hair: normal Neuro: General: oriented to person, oriented to place and oriented to time Cranial nerves: Yes CN's II-XII intact bilaterally and Yes Normal hearing present Cognition (Neuro): normal cognition Motor exam (neuro): 5/5 motor strength present throughout Extrem: Other: Left groin minimal saturation in dressing General: No clubbing, No cyanosis and Yes edema (+1) Psych: Appearance: grossly normal Mental Status: mental status grossly normal Speech and movement: Normal speech and movement present Progress Note: A&P Assessment and plan (1) PAD (peripheral artery disease): Status: Acute Assessment and Plan: In short patient is doing extremely well status post left fem-pop bypass. Patient has had reasonable pain control. We will DC IV fluids and Blackburn. She is stable from my perspective for transferred to regular floor bed. Hospitalist will be on consult. Thank you for the telecommunication lines repairer team for their assistance in her care. Time Spent With Patient Time: Total time managing care of this patient today ____ minutes. Procedures Date of Service Date of Service: 04/06/25 Quality Stroke Does the patient have a stroke diagnosis?: No VTE Prior VTE?: No VTE Risk Level:: Surgical - low VTE Device Contraindication: Treatment Not Tolerated VTE Drug Contraindication: Treatment Not Tolerated
--- NOTE | 2025-04-06 10:49 | PC.NURSE ---
Assume care @ 0700 Neuro/Resp: Alert & Oriented, Diminished lung sounds on RA. Cardiac: Sinus Rhythm on tele, S/P Femoral-Popliteal bypass day 1,? positive palpable dorsalis pulses to left, doppler to right.? GI/: + bowel sounds, passing gas. Blackburn removed, DTV @ 1600. External cath in place.? Skin: surgical site left groin and left posterior knee Lines: Peripheral IV Plan: Transfer to med surg. Not requiring ICU level of care.?
--- NOTE | 2025-04-06 10:52 | MHC.CM.PN ---
CM MET WITH PT AT BEDSIDE IN ICU. PT LIVES WITH ROOMMATE AND IS FUNCTIONALLY INDEPENDENT AT BASELINE.+DRIVES. NO SERVICES OR DME. + HCP. PCP LUIS FERNANDO CARTER DP: HOME, NO SERVICES IS THE GOAL. PT HAS OWN RIDE HOME. CM WILL CONTINUE TO FOLLOW FOR ANY CHANGE TO DC PLAN/NEEDS.
[2025-04-07 03:21] VITALS: BP 133/72; PULSE 81; RESP 18; TEMP 36.5; O2SAT 96
[2025-04-07 07:27] VITALS: BP 123/77; PULSE 70; RESP 16; TEMP 36.6; O2SAT 94
[2025-04-07] MEDS: oxyCODONE HCl Immed Release 5 MG TABLET PO ×3 (08:34→19:13)
[2025-04-07 08:35] VITALS: BP 123/77
[2025-04-07] MEDS: Nicotine 21 MG PATCH.TD24 TRANSDERMA (08:35)
[2025-04-07] MEDS: Aspirin Enteric Coated 81 MG TABLET.DR PO (08:35)
[2025-04-07] MEDS: 0.9 % Sodium Chloride Flush 3 ML SYRINGE IVFLUSH ×3 (08:36→20:03)
--- NOTE | 2025-04-07 09:17 | HO.VASCPN ---
Subjective Subjective Date of Service: 04/07/25 Patient reports: no new complaints and feels better Interval history: Patient is postop day 2 status post left fem-pop bypass. Overall appears to be doing somewhat better. Pain better controlled. Unfortunately diet has not improved and she was actually eating chips and Cheetos this morning for breakfast. No issues overnight Physical Exam Vital Signs: Vital Signs: Last Vital Signs Temp 97.8 F 04/07/25 07:27 Pulse 70 04/07/25 07:27 Resp 16 04/07/25 07:27 BP 123/77 04/07/25 08:35 Pulse Ox 94 04/07/25 07:27 O2 Del Method Room Air 04/07/25 07:27 O2 Flow Rate 2 04/05/25 11:20 BMI result Body Mass Index 28.8 Const: General: cooperative, healthy appearing and comfortable Orientation/consciousness: oriented to person, oriented to place and oriented to time HEENT: Head: Yes normal to inspection Neck: Neck: Yes normal visual inspection Carotids: no bruits Chest: Chest palpation & inspection: normal inspection of the chest Resp: Effort & Inspection: normal respiratory effort and able to speak in complete sentences Auscultation: clear to auscultation bilaterally, no crackles, no rales, no rhonchi and no wheezes Cardio: Other: Left leg palpable dorsalis pedis pulse Rate: regular rate Rhythm: regular rhythm Heart sounds: S1 normal heart sound present and S2 normal heart sound present Bruits: no carotid bruits Peripheral pulses: Peripheral pulses 2+ throughout GI: Inspection: Yes normal to inspection Skin: Wounds: no wounds Hair: normal Neuro: General: oriented to person, oriented to place and oriented to time Cranial nerves: Yes CN's II-XII intact bilaterally and Yes Normal hearing present Cognition (Neuro): normal cognition Motor exam (neuro): 5/5 motor strength present throughout Extrem: Other: venous exam: No significant superficial varicosities or spider telangiectasias, minimal edema General: No clubbing, No cyanosis and No edema Psych: Appearance: grossly normal Mental Status: mental status grossly normal Speech and movement: Normal speech and movement present Progress Note: A&P Assessment and plan (1) PAD (peripheral artery disease): Status: Acute Assessment and Plan: In short patient is status post left fem-pop bypass postop day 2. Doing relatively well pain appears to be better controlled. We will start physical therapy. I do think she is somewhat deconditioned and may require rehab placement. In addition we will obtain medicine consult. Possible discharge as early as tomorrow Time Spent With Patient Time: Total time managing care of this patient today ____ minutes. Procedures Date of Service Date of Service: 04/07/25 Quality Stroke Does the patient have a stroke diagnosis?: No VTE Prior VTE?: No VTE Risk Level:: Surgical - low VTE Device Contraindication: Treatment Not Tolerated VTE Drug Contraindication: Treatment Not Tolerated
--- NOTE | 2025-04-07 09:42 | P.CONHOSP_ITS ---
History of Present Illness Data of Consult Service Date: 04/07/25 Primary Care Provider: KEENAN Rodriguez HPI 54 year old women with a history of peripheral arterial disease admitted by vascular surgery and is s/p left femoral to [id number] popliteal bypass on 04/05/2025. Patient was initially monitored in the ICU and transferred out today. Patient had an uneventful stay in the ICU. Blood pressures have been stable, labs within acceptable limits. Review of Systems 2 Review of Systems: Denies any recent fever chills or decrease in appetite respiratory denies any shortness of breath or cough cardiovascular denied chest pain gastrointestinal denies any dysphagia abdominal pain nausea vomiting or diarrhea genitourinary denies any dysuria frequency or hematuria musculoskeletal denies any joint pain or swelling neuropsych denies any weakness or seizures all other systems reviewed are negative [facility] Medical History (Updated 04/17/25 @ 00:01 by Background Daemon) Plantar fasciitis Arthritis History of ETOH abuse Nicotine dependence, cigarettes, uncomplicated GERD (gastroesophageal reflux disease) Hyperlipidemia Hypertension Vitamin D deficiency PAD (peripheral artery disease) AAA (abdominal aortic aneurysm) without rupture Family History Father Emphysema lung Mother No problems noted. Surgical History (Updated 04/17/25 @ 00:01 by Background Daemon) H/O vascular surgery History of cardiac cath S/P aortogram History of repair of anterior cruciate ligament of left knee Social History (Updated 03/12/25 @ 10:28 by Marissa Marquez PA-C) Household Members: Friend(s) Household Members Other:: one friend Housing: Apartment Housing Other:: first floor of two family home Are you a primary care analyst to a significant other at home: No Do you presently have visiting nurse or other home services: No Comment: advised of trip hazard Patient Tobacco Use Status: Current everyday Tobacco user Tobacco use type: Cigarette Cigarettes Per Day: 15 Years Smoked: (onset 19yo, 1ppd x 35yrs - 30+PYH) Second Hand Smoke Exposure: No Cognitive needs: No Hearing needs: No Vision needs: Yes Meds Allergies Allergy/AdvReac Type Severity Reaction Status Date / Time cat dander (CATS) Allergy Severe SHORTNESS Verified 04/05/25 06:11 OF BREATH Active Medications: Current Medications Acetaminophen (Acetaminophen 325 Mg Tablet) 650 mg PO Q6H PRN PRN Reason: Pain, Mild 1-3,fever,headache Aspirin (Aspirin Enteric Coated 81 Mg Tablet.) 81 mg PO DAILY [facility] Last Admin: 04/07/25 08:35 Dose: 81 mg Atorvastatin Calcium (Atorvastatin Calcium 20 Mg Tablet) 20 mg PO BEDTIME [facility] Last Admin: 04/06/25 20:16 Dose: 20 mg Calcium Carbonate (Calcium Carbonate 750 Mg Tab.Chew) 750 mg PO Q4H PRN PRN Reason: Heartburn Docusate Sodium (Docusate Sodium 100 Mg Capsule) 200 mg PO BEDTIME [facility] Last Admin: 04/06/25 20:15 Dose: 200 mg Folic Acid (Folic Acid 1 Mg Tablet) 1 mg PO DAILY [facility] Last Admin: 04/07/25 08:35 Dose: 1 mg Hydrochlorothiazide (Hydrochlorothiazide 12.5 Mg Tablet) 12.5 mg PO DAILY [facility] Last Admin: 04/07/25 08:35 Dose: 12.5 mg Losartan Potassium (Losartan Potassium 50 Mg Tablet) 50 mg PO BEDTIME [facility] Last Admin: 04/06/25 20:16 Dose: 50 mg Magnesium Hydroxide (Milk Of Magnesia 30 Ml Oral.Susp) 30 ml PO DAILY PRN PRN Reason: Constipation Melatonin (Melatonin 3 Mg Tablet) 6 mg PO BEDTIME PRN PRN Reason: Insomnia Last Admin: 04/05/25 21:10 Dose: 6 mg Morphine Sulfate (Morphine Sulfate 2 Mg/Ml Cartridge) 2 mg IVPUSH Q4H PRN; Protocol PRN Reason: Pain, Severe (Pain Scale 7-10) Last Admin: 04/06/25 15:04 Dose: 2 mg Naloxone HCl (Naloxone Hcl 0.4 Mg/Ml Vial) 0.04 mg IVPUSH Q5M PRN PRN Reason: Excessive sedation or RR < 8 Nicotine (Nicotine 21 Mg Patch.Td24) 21 mg TRANSDERMA DAILY [facility] Last Admin: 04/07/25 08:35 Dose: 21 mg Nicotine Polacrilex (Nicotine Polacrilex 2 Mg Gum) 2 mg BUCCAL Q1H PRN PRN Reason: Nicotine Cravings Last Admin: 04/05/25 21:31 Dose: 2 mg Omeprazole (Omeprazole 20 Mg Capsule.) 20 mg PO DAILY PRN PRN Reason: Acid Reflux Omeprazole (Omeprazole 20 Mg Capsule.) 20 mg PO DAILY@0630 [facility] Last Admin: 04/07/25 05:29 Dose: 20 mg Oxycodone HCl (Oxycodone Hcl Immed Release 5 Mg Tablet) 5 mg PO Q4H PRN PRN Reason: Pain, Moderate(Pain Scale 4-6) Last Admin: 04/07/25 08:34 Dose: 5 mg Sodium Chloride (0.9 % Sodium Chloride Flush 3 Ml Syringe) 3 ml IVFLUSH QSHIFT [facility] Last Admin: 04/07/25 08:36 Dose: 3 ml Vitamin D (Cholecalciferol (Vitamin D3) 25 Mcg Tablet) 50 mcg PO DAILY [facility] Last Admin: 04/07/25 08:35 Dose: 50 mcg Home Medications ?Medication ?Instructions ?Recorded ?Confirmed ?Last Taken ?Type omeprazole 10 mg capsule,delayed 10 mg PO DAILY PRN Ac id Reflux 03/05/23 04/05/25 Unknown History release Physical Exam 2 Vital Signs and Narrative: Vital Signs: Last Vital Signs Temp 97.8 F 04/07/25 07:27 Pulse 70 04/07/25 07:27 Resp 16 04/07/25 07:27 BP 123/77 04/07/25 08:35 Pulse Ox 94 04/07/25 07:27 O2 Del Method Room Air 04/07/25 07:27 O2 Flow Rate 2 04/05/25 11:20 BMI result Body Mass Index 28.8 Appearing in no acute distress head is normocephalic atraumatic eyes pupils are PERRLA sclera is anicteric mouth throat mucous membranes are intact and moist neck is supple no lymphadenopathy, no JVD noted lung sounds are clear to auscultation heart regular rate rhythm, clear S1, S2 positive bowel sounds, abdomen is soft, nontender neuro patient is alert x3, no focal deficits Results Labs 04/06/25 05:08 04/06/25 05:08 Assessment and Plan (1) PAD (peripheral artery disease): Status: Acute Plan 54-year-old woman admitted by vascular surgery and is status post left femoral to [id number] popliteal bypass on 04/05/2025. Peripheral arterial disease Status post popliteal bypass Management as per vascular Surgical team Continue aspirin and statin Hypertension Stable blood pressure Continue losartan, hydrochlorothiazide DVT prophylaxis with pneumatic compression boots Full code
--- NOTE | 2025-04-07 10:50 | MHC.CM.PN ---
Addendum entered by Cinthia Lei RN 04/07/25 15:22: PT rec acute rehab. CM reviewed w/ patient who is agreeable to plan. [facility] choice. Will need OT eval. Requested from Dr. Senior. CM will continue to follow. Original Note: Patient not medically cleared for dc. CM will continue to follow.
[2025-04-07 15:03] VITALS: BP 136/73; PULSE 73; RESP 17; TEMP 36.5; O2SAT 98
[2025-04-07 19:15] VITALS: BP 125/81; PULSE 81; RESP 15; TEMP 37; O2SAT 95
[2025-04-08 03:46] VITALS: BP 128/75; PULSE 70; RESP 18; TEMP 36.7; O2SAT 96
[2025-04-08] MEDS: oxyCODONE HCl Immed Release 5 MG TABLET PO ×4 (05:41→21:58)
[2025-04-08 07:35] VITALS: BP 103/71; PULSE 67; RESP 16; TEMP 36.2; O2SAT 94
[2025-04-08] MEDS: Aspirin Enteric Coated 81 MG TABLET.DR PO (08:59)
[2025-04-08] MEDS: 0.9 % Sodium Chloride Flush 3 ML SYRINGE IVFLUSH ×2 (08:59→19:51)
[2025-04-08] MEDS: Nicotine 21 MG PATCH.TD24 TRANSDERMA (08:59)
--- NOTE | 2025-04-08 12:56 | P.PNIM_ITS ---
Subjective Subjective Date of Service: 04/08/25 Interval History: No acute issues overnight. Tolerating diet ambulatory without issue Review of Systems Denies chest pain Denies shortness of breath Denies nausea vomiting diarrhea Denies fever chills Physical Exam 2 Vital Signs: Vital Signs: Last Vital Signs Temp 97.2 F 04/08/25 07:35 Pulse 67 04/08/25 07:35 Resp 16 04/08/25 07:35 BP 103/71 04/08/25 07:35 Pulse Ox 94 04/08/25 07:35 O2 Del Method Room Air 04/08/25 07:35 O2 Flow Rate 2 04/05/25 11:20 BMI result Body Mass Index 28.8 Const: Other: Awake alert no acute distress Resp: Other: Clear to auscultation bilaterally no rales rhonchi or wheezes Cardio: Other: No S4; positive S1-S2; no S3 murmurs rubs or gallops GI: Other: Soft nontender nondistended normoactive bowel sounds Extrem: Other: No edema bilaterally Objective Data Active Medications Acetaminophen (Acetaminophen 325 Mg Tablet) 650 mg PO Q6H PRN PRN Reason: Pain, Mild 1-3,fever,headache Aspirin (Aspirin Enteric Coated 81 Mg Tablet.Dr) 81 mg PO DAILY [facility] Last Admin: 04/08/25 08:59 Dose: 81 mg Documented By: NA Atorvastatin Calcium (Atorvastatin Calcium 20 Mg Tablet) 20 mg PO BEDTIME [facility] Last Admin: 04/07/25 20:02 Dose: 20 mg Documented By: AMANDA Calcium Carbonate (Calcium Carbonate 750 Mg Tab.Chew) 750 mg PO Q4H PRN PRN Reason: Heartburn Docusate Sodium (Docusate Sodium 100 Mg Capsule) 200 mg PO BEDTIME [facility] Last Admin: 04/07/25 20:02 Dose: 200 mg Documented By: AMANDA Folic Acid (Folic Acid 1 Mg Tablet) 1 mg PO DAILY [facility] Last Admin: 04/08/25 08:59 Dose: 1 mg Documented By: NA Hydrochlorothiazide (Hydrochlorothiazide 12.5 Mg Tablet) 12.5 mg PO DAILY [facility] Last Admin: 04/08/25 08:58 Dose: 12.5 mg Documented By: NA Losartan Potassium (Losartan Potassium 50 Mg Tablet) 50 mg PO BEDTIME [facility] Last Admin: 04/07/25 20:02 Dose: 50 mg Documented By: AMANDA Magnesium Hydroxide (Milk Of Magnesia 30 Ml Oral.Susp) 30 ml PO DAILY PRN PRN Reason: Constipation Melatonin (Melatonin 3 Mg Tablet) 6 mg PO BEDTIME PRN PRN Reason: Insomnia Last Admin: 04/05/25 21:10 Dose: 6 mg Documented By: JACOBO Morphine Sulfate (Morphine Sulfate 2 Mg/Ml Cartridge) 2 mg IVPUSH Q4H PRN; Protocol PRN Reason: Pain, Severe (Pain Scale 7-10) Last Admin: 04/06/25 15:04 Dose: 2 mg Documented By: YONATAN Naloxone HCl (Naloxone Hcl 0.4 Mg/Ml Vial) 0.04 mg IVPUSH Q5M PRN PRN Reason: Excessive sedation or RR < 8 Nicotine (Nicotine 21 Mg Patch.Td24) 21 mg TRANSDERMA DAILY [facility] Last Admin: 04/08/25 08:59 Dose: 21 mg Documented By: NA Nicotine Polacrilex (Nicotine Polacrilex 2 Mg Gum) 2 mg BUCCAL Q1H PRN PRN Reason: Nicotine Cravings Last Admin: 04/05/25 21:31 Dose: 2 mg Documented By: JACOBO Omeprazole (Omeprazole 20 Mg Capsule.Dr) 20 mg PO DAILY PRN PRN Reason: Acid Reflux Omeprazole (Omeprazole 20 Mg Capsule.Dr) 20 mg PO DAILY@0630 [facility] Last Admin: 04/08/25 05:39 Dose: 20 mg Documented By: AMADNA Oxycodone HCl (Oxycodone Hcl Immed Release 5 Mg Tablet) 5 mg PO Q4H PRN PRN Reason: Pain, Moderate(Pain Scale 4-6) Last Admin: 04/08/25 10:29 Dose: 5 mg Documented By: NA Sodium Chloride (0.9 % Sodium Chloride Flush 3 Ml Syringe) 3 ml IVFLUSH QSHIFT [facility] Last Admin: 04/08/25 08:59 Dose: 3 ml Documented By: NA Vitamin D (Cholecalciferol (Vitamin D3) 25 Mcg Tablet) 50 mcg PO DAILY [facility] Last Admin: 04/08/25 08:59 Dose: 50 mcg Documented By: NA Labs 04/06/25 05:08 04/06/25 05:08 Assessment and Plan (1) PAD (peripheral artery disease): Status: Acute (2) Hypertension: Status: Acute Plan 54-year-old woman admitted by vascular surgery and is status post left femoral to [id number] popliteal bypass on 04/05/2025. 1.Peripheral arterial disease -Status post popliteal bypass -as per vascular Surgical team -continue aspirin and statin 2.Hypertension -acceptable control on current therapies -adjust as indicated DVT prophylaxis with pneumatic compression boots Full code Quality Stroke Does the patient have a stroke diagnosis?: No VTE Prior VTE?: No VTE Risk Level:: Surgical - low VTE Device Contraindication: Treatment Not Tolerated VTE Drug Contraindication: Treatment Not Tolerated
--- NOTE | 2025-04-08 13:51 | HO.VASCPN ---
Subjective Subjective Date of Service: 04/08/25 Patient reports: no new complaints and feels better Interval history: Patient seen and examined. No significant events overnight. Pain appears to be better controlled. She has been seen by Physical therapy and Occupational therapy. She has been ambulatory and reports that her leg does feel significantly better. Physical Exam Vital Signs: Vital Signs: Last Vital Signs Temp 97.2 F 04/08/25 07:35 Pulse 67 04/08/25 07:35 Resp 16 04/08/25 07:35 BP 103/71 04/08/25 07:35 Pulse Ox 94 04/08/25 07:35 O2 Del Method Room Air 04/08/25 07:35 O2 Flow Rate 2 04/05/25 11:20 BMI result Body Mass Index 28.8 Const: General: cooperative, healthy appearing and comfortable Orientation/consciousness: oriented to person, oriented to place and oriented to time HEENT: Head: Yes normal to inspection Neck: Neck: Yes normal visual inspection Carotids: no bruits Chest: Chest palpation & inspection: normal inspection of the chest Resp: Effort & Inspection: normal respiratory effort and able to speak in complete sentences Auscultation: clear to auscultation bilaterally, no crackles, no rales, no rhonchi and no wheezes Cardio: Other: Left leg palpable dorsalis pedis pulse Rate: regular rate Rhythm: regular rhythm Heart sounds: S1 normal heart sound present and S2 normal heart sound present Bruits: no carotid bruits Peripheral pulses: Peripheral pulses 2+ throughout GI: Inspection: Yes normal to inspection Skin: Other: Left leg incisions healing well. Dressing is changed. Wounds: no wounds Hair: normal Neuro: General: oriented to person, oriented to place and oriented to time Cranial nerves: Yes CN's II-XII intact bilaterally and Yes Normal hearing present Cognition (Neuro): normal cognition Motor exam (neuro): 5/5 motor strength present throughout Extrem: Other: venous exam: No significant superficial varicosities or spider telangiectasias, minimal edema General: No clubbing, No cyanosis and No edema Psych: Appearance: grossly normal Mental Status: mental status grossly normal Speech and movement: Normal speech and movement present Progress Note: A&P Assessment and plan (1) PAD (peripheral artery disease): Status: Acute Assessment and Plan: Postop day 3 status post fem-pop bypass. Patient doing relatively well. Stable from my perspective for discharge. Awaiting rehab placement. Discussed with case management team. Time Spent With Patient Time: Total time managing care of this patient today ____ minutes. Procedures Date of Service Date of Service: 04/08/25 Quality Stroke Does the patient have a stroke diagnosis?: No VTE Prior VTE?: No VTE Risk Level:: Surgical - low VTE Device Contraindication: Treatment Not Tolerated VTE Drug Contraindication: Treatment Not Tolerated
[2025-04-08 15:07] VITALS: BP 135/74; PULSE 83; RESP 18; TEMP 36.4; O2SAT 95
[2025-04-08 19:26] VITALS: BP 130/74; PULSE 86; RESP 18; TEMP 36.5; O2SAT 96
[2025-04-09] MEDS: oxyCODONE HCl Immed Release 5 MG TABLET PO ×2 (01:57→05:46)
[2025-04-09 01:58] VITALS: BP 136/84; PULSE 77; RESP 18; TEMP 36.7; O2SAT 94
[2025-04-09 08:00] VITALS: BP 129/85; PULSE 70; RESP 16; TEMP 35.9; O2SAT 93
[2025-04-09] MEDS: Aspirin Enteric Coated 81 MG TABLET.DR PO (09:34)
[2025-04-09] MEDS: Nicotine 21 MG PATCH.TD24 TRANSDERMA (09:34)
[2025-04-09] MEDS: 0.9 % Sodium Chloride Flush 3 ML SYRINGE IVFLUSH (09:35)
--- NOTE | 2025-04-09 09:46 | MHC.CM.PN ---
[facility] denied acute rehab stay. Notified patient and discuss alternate dc plans STR vs home w/ services. Patient prefers home w/ new [facility] services. Per MD, medically cleared for dc. Brother will transport. RN aware.
--- NOTE | 2025-04-09 09:59 | PM.DS ---
DS: Providers Provider Date of Service: 04/09/25 Date of admission: 04/05/25 07:39 Date of discharge: 04/09/25 Primary care physician: LIONEL RodriguezPDragan Consults: 04/07/25 09:14 Consult to Hospitalist Routine Comment: Consulting Provider: [facility] Reason For Exam: Medical management DS: Diagnosis Discharge Diagnosis (1) PAD (peripheral artery disease): Status: Acute DS: Summary Hospital Course Hospital Course: Patient underwent left femoral to popliteal bypass on April 05 2025. She was slow to progress. Postop day 1 she was transferred out of ICU to a regular floor. She continued to slowly progress and was working with physical therapy within the hospital along with occupational therapy. Initially the plan was for rehab placement unfortunately insurance denied her from rehab placement. She is now being discharged home. She is ambulatory enough and does feel stable enough to go home. She is tolerating regular diet. Status at Discharge Functional status at discharge: independent ambulation Overall status at discharge: patient is back to baseline Time Attestation Total time managing care of this patient today: 45 mintues. Discharge Coordination Time (in mins): 45 minutes Quality: Safe Use of Opioids Does Pt have an Active Cancer Diagnosis on the Problem List?: No Quality: Stroke Does the patient have a stroke diagnosis?: No Physical Exam Vital Signs: Vital Signs: Last Vital Signs Temp 96.7 F L 04/09/25 08:00 Pulse 70 04/09/25 08:00 Resp 16 04/09/25 08:00 BP 129/85 04/09/25 08:00 Pulse Ox 93 04/09/25 08:00 O2 Del Method Room Air 04/09/25 08:00 O2 Flow Rate 2 04/05/25 11:20 BMI result Body Mass Index 28.8 Const: General: cooperative, healthy appearing and no acute distress Orientation/consciousness: oriented to person, oriented to place and oriented to time HEENT: Head: Yes normal to inspection Neck: Carotids: no bruits Chest: Chest palpation & inspection: normal inspection of the chest Resp: Effort & Inspection: normal respiratory effort and able to speak in complete sentences Auscultation: clear to auscultation bilaterally Cardio: Rate: regular rate Heart sounds: S1 normal heart sound present and S2 normal heart sound present GI: Inspection: Yes normal to inspection Skin: Other: Left leg incisions healing well General skin exam: no rashes or lesions noted Wounds: no wounds Neuro: General: oriented to person, oriented to place, oriented to time and CN's II-XI intact bilaterally Extrem: General: Yes normal to inspection, Yes full ROM and Yes no clubbing, cyanosis or edema Psych: Appearance: grossly normal and well kempt Speech and movement: Normal speech and movement present Affect: normal affect Discharge Plan Discharge Anticipated Discharge Date/Time: 04/09/25 09:53 Patient Disposition: Home Health Service Discharge Diagnosis: Status post left fem-pop bypass Referrals: [facility] [Outside] - 3-5 Days Referral Note: [facility] will call you to schedule home visits Ramesh Vazquez, [employer] [Primary Care Provider, Internal Medicine] - 1 Week Discharge Medications: New oxycodone-acetaminophen [Endocet] 5-325 mg tablet 1 tab PO TID PRN (Reason: pain) Qty: 20 0RF Rx Instructions: Partial Fill upon patient request. Continued cholecalciferol (vitamin D3) 50 mcg (2,000 unit) capsule 50 mcg PO DAILY 90 Days Qty: 90 2RF atorvastatin 20 mg tablet 20 mg PO BEDTIME Qty: 90 1RF losartan-hydrochlorothiazide 50-12.5 mg tablet 1 tab PO DAILY 90 Days Qty: 90 1RF folic acid 1 mg tablet 1 mg PO DAILY Qty: 90 0RF aspirin [Adult Aspirin Regimen] 81 mg tablet,delayed release (DR/EC) 81 mg PO DAILY Qty: 90 4RF omeprazole 10 mg capsule,delayed release(DR/EC) 10 mg PO DAILY PRN (Reason: Acid Reflux) nicotine [Nicoderm CQ] 21 mg/24 hr patch 24 hour 1 patch transdermal DAILY Qty: 28 0RF Rx Instructions: take the patch off before bed please nicotine (polacrilex) 2 mg gum 2 mg buccal Q2H Qty: 100 1RF Discharge Orders: Discharge Order (Routine); Ordered 04/09/25 Ordered By: Abraham Senior Diet: Advance to usual diet Activity on Discharge: As tolerated Stand Alone Forms: Patient Portal Discharge page Print Language: Norwegian Activity Restrictions/Additional Instructions: Lito was used and you may shower as early as tomorrow. You can cover incision lines with dry gauze and tape after showering Take it easy today and you may ambulate around the house. You may climb a flight of stairs as tolerated See Dr. Senior in follow-up in approximately 2 weeks time for staple removal. You should already have an appointment if not please call my office at [phone] Please use Tylenol as needed for pain and if required Percocet for pain If you notice excessive bleeding from the groin please immediately call my office or return to the emergency room. Care Plan Goals: Improve walking distance with [facility] Concerns: Peripheral artery disease Plan of Treatment: Surveillance follow-up with ultrasound of bypass Assessment: Status post left femoral to popliteal artery bypass
--- NOTE | 2025-04-09 10:01 | P.F2F_ITS ---
Service Date Service Date: 04/09/25 Encounter Date of encounter: 04/09/25 Reasons for Services Signs and symptoms assessed: Postop evaluation Reason for intermediate: postoperative assessment and/or care Reason for physical therapy: home safety and mobility Homebound: Leaving the home is medically contraindicated at this time without the asist of a device and/or another person due th the listed conditions above and below. Reason homebound: unsteady gait / fall risk and poor balance / fall risk Certification: Based on the above findings, I certify that this patient is confined to the home and needs intermittent intermediate care, physical therapy and/or speech therapy, or continues to need occupational therapy. The patient is under my care, and I have initiated the establishment of the plan of care. The patient will be followed by a physician who will periodically review the plan of care. Time Spent With Patient Time: Total time managing care of this patient today __45__ minutes.
== END 2025-04-09 12:13 | disposition home health service (06) | DRG 181 ==
LOC: HO.SSSA 07:39 → HO.ICU 11:32 → HO.S3 04-06 14:10
PROVIDERS: Anesthesiology; Nurse Practitioner; Admitting Provider Surgery Vascular Surgery; PCP Nurse Practitioner Family; Visit Provider Surgery Vascular Surgery
PROC: 041L0JL Bypass Left Femoral Artery to Popliteal Artery with Synthetic Substitute, Open Approach (ICD-10-PCS; principal; 2025-04-05 07:30)
DX: I70.212 Atherosclerosis of native arteries of extremities with intermittent claudication, left leg (principal); E78.5 Hyperlipidemia, unspecified; K21.9 Gastro-esophageal reflux disease without esophagitis; I10 Essential (primary) hypertension; Z79.82 Long term (current) use of aspirin; Z87.891 Personal history of nicotine dependence; Z79.899 Other long term (current) drug therapy
CPT/HCPCS: 36415; 80048; 81025; 85025; 85027; 85610; 85730; 86850; 86900; 86901; 97116; 97162; 97165; 97530; 97535; C1768; C1889; C9250; J0131; J0690; J1100; J1171; J1805; J2003; J2250; J2270; J2405; J2704; J3010

== ENCOUNTER → 2025-04-05 07:39 | Outpatient (BNV) | payer OTHER, SELFPAY | PROVIDERS: Admitting Provider Surgery Vascular Surgery; PCP Nurse Practitioner Family; Visit Provider Internal Medicine Critical Care Medicine | DX: I73.9 Peripheral vascular disease, unspecified (principal); I10 Essential (primary) hypertension; E78.5 Hyperlipidemia, unspecified | CPT/HCPCS: 99291 ==

== ENCOUNTER → 2025-04-05 07:39 | Outpatient (BNV) | payer OTHER, SELFPAY | PROVIDERS: Admitting Provider Surgery Vascular Surgery; PCP Nurse Practitioner Family; Visit Provider Hospitalist | DX: I73.9 Peripheral vascular disease, unspecified (principal) | CPT/HCPCS: 99222; 99232 ==

== ENCOUNTER → 2025-04-05 07:39 | Outpatient (BNV) | payer OTHER, SELFPAY | PROVIDERS: Admitting Provider Surgery Vascular Surgery; PCP Nurse Practitioner Family; Visit Provider Surgery Vascular Surgery | DX: I70.212 Atherosclerosis of native arteries of extremities with intermittent claudication, left leg (principal) | CPT/HCPCS: 35656; 76937; 99232 ==

== ENCOUNTER 2025-04-20 10:14 | Outpatient (AMB) | payer OTHER, SELFPAY ==
--- NOTE | 2025-04-20 10:15 | MHC.OFFVIS ---
Intake Visit Reasons: 2 week follow up L Fem-Pop 04/05/25 Intake Note: 2 week follow up Left Fem-pop bypass 04/05/25. Pt has olivier in w/ some redness and itching she states. 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 The surgery was performed on April 05, 2025, and she reports improved strength in the leg, though recovery is ongoing. Regular walking is encouraged to facilitate recovery, as inactivity may impede progress. The incision site is healing well, with staple removal planned for this visit. The patient is on baby aspirin. [facility] Medical History Plantar fasciitis Arthritis History of ETOH abuse Nicotine dependence, cigarettes, uncomplicated GERD (gastroesophageal reflux disease) Hyperlipidemia Hypertension Vitamin D deficiency PAD (peripheral artery disease) AAA (abdominal aortic aneurysm) without rupture Surgical History H/O vascular surgery History of cardiac cath S/P aortogram History of repair of anterior cruciate ligament of left knee Family History Father Emphysema lung Mother No problems noted. Social History (Updated 04/20/25 @ 10:20 by JORI Montenegro) Household Members: Friend(s) Household Members Other:: one friend Housing: Apartment Housing Other:: first floor of two family home Are you a primary wound care coordinator to a significant other at home: No Do you presently have visiting nurse or other home services: No Comment: advised of trip hazard Patient Tobacco Use Status: Former Tobacco user Tobacco use type: Cigarette Cigarettes Per Day: 15 Years Smoked: (onset 19yo, 1ppd x 35yrs - 30+PYH) Second Hand Smoke Exposure: No Cognitive needs: No Hearing needs: No Vision needs: Yes Review of Systems Const All systems reviewed & are unremarkable except as noted in HPI and below Reports no additional complaints ENT Reports Normal hearing present Card Denies chest pain, Denies chest pain at rest, Denies chest pain with activity and Denies pedal edema Resp Denies cough GI Denies abdominal pain Musc Denies abnormal gait, Denies muscle cramps and Denies radiating pain into limb Skin/Breast Denies skin ulcer and Denies wounds Neuro Reports Normal hearing present and Denies abnormal gait Psych Reports no additional complaints Physical Exam Const General: cooperative, healthy appearing and comfortable Orientation/consciousness: oriented to person, oriented to place and oriented to time HEENT Head: Yes normal to inspection Neck Neck: Yes normal visual inspection Carotids: no bruits Chest Chest palpation & inspection: normal inspection of the chest Resp Effort & Inspection: normal respiratory effort and able to speak in complete sentences Auscultation: clear to auscultation bilaterally, no crackles, no rales, no rhonchi and no wheezes Cardio Other: Left palpable dorsalis pedis pulse Rate: regular rate Rhythm: regular rhythm Heart sounds: S1 normal heart sound present and S2 normal heart sound present Bruits: no carotid bruits GI Inspection: Yes normal to inspection Skin Wounds: no wounds Hair: normal Neuro General: oriented to person, oriented to place and oriented to time Cranial nerves: Yes CN's II-XII intact bilaterally and Yes Normal hearing present Cognition (Neuro): normal cognition Motor exam (neuro): 5/5 motor strength present throughout Extrem Other: venous exam: No significant superficial varicosities or spider telangiectasias, minimal edema General: No clubbing, No cyanosis and No edema Psych Appearance: grossly normal Mental Status: mental status grossly normal Speech and movement: Normal speech and movement present Assessment & Plan Assessment & Plan (1) PAD (peripheral artery disease): Comment: 12/02/2024 - diagnostic angiogram 04/05/2025 - left fem-pop bypass Code(s): I73.9 - Peripheral vascular disease, unspecified Category: Medical Plan: In short patient has done well with left fem-pop bypass. I did review the pathophysiology of peripheral vascular disease with the patient. In addition we did discuss routine conservative measures including a healthy diet and the importance of exercise and ambulation. We did discuss risk factor modification. The patient will continue to to follow-up with surveillance follow-up in approximately 3 months. Thank you for allowing us to participate in this patient's care. If there are any questions or concerns please do not hesitate to contact us. (2) AAA (abdominal aortic aneurysm) without rupture: Code(s): I71.40 - Abdominal aortic aneurysm, without rupture, unspecified Category: Medical Qualifiers: Abdominal aorta location: infrarenal aorta Qualified Code(s): I71.43 - Infrarenal abdominal aortic aneurysm, without rupture Plan: Last study done on 11/02/2024. Measures 4.7 cm. Annual surveillance has already been ordered Orders: Orders US arterial duplex LE BI 3 Months I73.9 - Peripheral vascular disease, unspecified Coding Level of Care Code Est Pt Level 4 (11807) Complex EM visit Add On G2211 Diagnoses PAD (peripheral artery disease) I73.9 Infrarenal abdominal aortic aneurysm (AAA) without rupture I71.43 Abdominal aorta location: infrarenal aorta
== END 2025-04-20 10:34 | disposition home or self-care (01) ==
LOC: HO.HVS 10:15
PROVIDERS: PCP Nurse Practitioner Family; Visit Provider Surgery Vascular Surgery
DX: I73.9 Peripheral vascular disease, unspecified (principal); I71.43 Infrarenal abdominal aortic aneurysm, without rupture
CPT/HCPCS: 99024

== ENCOUNTER → 2025-04-20 10:14 | Outpatient (BNVA) | payer OTHER, SELFPAY | PROVIDERS: PCP Nurse Practitioner Family; Visit Provider Surgery Vascular Surgery | DX: I71.43 Infrarenal abdominal aortic aneurysm, without rupture (principal); I73.9 Peripheral vascular disease, unspecified | CPT/HCPCS: 99212 ==

== ENCOUNTER 2025-05-04 10:51 | Outpatient (AMB) | payer OTHER, SELFPAY ==
--- NOTE | 2025-05-04 10:56 | MHC.OFFVIS ---
Intake Visit Reasons: Add-on for new LE pain s/p Fem-pop bypass Intake Note: Add-on for new bilateral foot pain. Mostly at night has burning sensation and having trouble sleeping. Hx of fem-pop bypass. General Utility Worker Required: No Accompanied by: Self / Same As Patient Allergies cat dander (CATS) Allergy (Severe, Verified 05/04/25 10:58) SHORTNESS OF BREATH HPI HPI Add-on for new LE pain s/p Fem-pop bypass: Details: The patient is a 54-year-old female presenting with a follow-up after a femoropopliteal bypass surgery. She presents for acute onset pain which was concerning to her. She reports numbness in the foot and lower leg, sometimes feeling like swelling, but without actual swelling or redness. The numbness is accompanied by a sensation of tightening, but no new pain is reported. Musculoskeletal pain in the leg is noted, occurring intermittently and relieved by rest. The patient remains active, engaging in activities such as walking, which occasionally triggers transient pain. She now presents for re-evaluation COUNTS INCLUDE 234 BEDS AT THE [facility] Medical History Plantar fasciitis Arthritis History of ETOH abuse Nicotine dependence, cigarettes, uncomplicated GERD (gastroesophageal reflux disease) Hyperlipidemia Hypertension Vitamin D deficiency PAD (peripheral artery disease) AAA (abdominal aortic aneurysm) without rupture Surgical History H/O vascular surgery History of cardiac cath S/P aortogram History of repair of anterior cruciate ligament of left knee Family History Father Emphysema lung Mother No problems noted. Social History Household Members: Friend(s) Household Members Other:: one friend Housing: Apartment Housing Other:: first floor of two family home Are you a primary child care center administrator to a significant other at home: No Do you presently have visiting nurse or other home services: No Comment: advised of trip hazard Patient Tobacco Use Status: Former Tobacco user Tobacco use type: Cigarette Cigarettes Per Day: 15 Years Smoked: (onset 19yo, 1ppd x 35yrs - 30+PYH) Second Hand Smoke Exposure: No Cognitive needs: No Hearing needs: No Vision needs: Yes Review of Systems Const All systems reviewed & are unremarkable except as noted in HPI and below Reports no additional complaints ENT Reports Normal hearing present Card Denies chest pain, Denies chest pain at rest, Denies chest pain with activity and Denies pedal edema Resp Denies cough GI Denies abdominal pain Musc Denies abnormal gait, Denies muscle cramps and Denies radiating pain into limb Skin/Breast Denies skin ulcer and Denies wounds Neuro Reports Normal hearing present and Denies abnormal gait Psych Reports no additional complaints Physical Exam Const General: cooperative, healthy appearing and comfortable Orientation/consciousness: oriented to person, oriented to place and oriented to time HEENT Head: Yes normal to inspection Neck Neck: Yes normal visual inspection Carotids: no bruits Chest Chest palpation & inspection: normal inspection of the chest Resp Effort & Inspection: normal respiratory effort and able to speak in complete sentences Auscultation: clear to auscultation bilaterally, no crackles, no rales, no rhonchi and no wheezes Cardio Other: Left leg has palpable dorsalis pedis pulse. Left thigh incision appears to be healing well. Rate: regular rate Rhythm: regular rhythm Heart sounds: S1 normal heart sound present and S2 normal heart sound present Bruits: no carotid bruits Peripheral pulses: Peripheral pulses 2+ throughout GI Inspection: Yes normal to inspection Skin Wounds: no wounds Hair: normal Neuro General: oriented to person, oriented to place and oriented to time Cranial nerves: Yes CN's II-XII intact bilaterally and Yes Normal hearing present Cognition (Neuro): normal cognition Motor exam (neuro): 5/5 motor strength present throughout Extrem Other: venous exam: No significant superficial varicosities or spider telangiectasias, minimal edema General: No clubbing, No cyanosis and No edema Psych Appearance: grossly normal Mental Status: mental status grossly normal Speech and movement: Normal speech and movement present Assessment & Plan Assessment & Plan (1) PAD (peripheral artery disease): Comment: 12/02/2024 - diagnostic angiogram 04/05/2025 - left fem-pop bypass Code(s): I73.9 - Peripheral vascular disease, unspecified Category: Medical Plan: I discussed with the patient the importance of staying active to aid recovery post-surgery. We did provide reassurance that it does appear to be doing relatively well and I encouraged her to stay active. She does have a palpable pulse in it appears that the graft is functioning well. We also talked about the scheduled three-month ultrasound to monitor the surgical site and ensure proper healing. Coding Level of Care Code Est Pt Level 3 (16650) Diagnoses PAD (peripheral artery disease) I73.9
== END 2025-05-04 11:10 | disposition home or self-care (01) ==
LOC: HO.HVS 10:53
PROVIDERS: PCP Nurse Practitioner Family; Visit Provider Surgery Vascular Surgery
DX: I73.9 Peripheral vascular disease, unspecified (principal)
CPT/HCPCS: 99024

== ENCOUNTER → 2025-05-04 10:51 | Outpatient (BNVA) | payer OTHER, SELFPAY | PROVIDERS: PCP Nurse Practitioner Family; Visit Provider Surgery Vascular Surgery | DX: I73.9 Peripheral vascular disease, unspecified (principal) | CPT/HCPCS: 99212 ==